=== PATIENT | female | born 1930 | race Caucasian/White ===

== ENCOUNTER 2016-11-01 23:10 | Observation (INO) | payer MEDICARE ==
--- NOTE | 2016-11-01 23:36 | ED ---
Syncope/Near Syncope - HPI Summary HPI Summary: 86 yo female with weakness since Thursday. She was seen at the clinic at [facility] and put on abx for a uti but continues to be weak. She describes wretching yesterday, denies headache, diarrhea, cp, sob , fever she does have mild left sided flank pain. she has fallen 3 times total since thursday. Tonight she attempted to get out of bed and fell back onto the bed and was not able to get up again. She denies any head injury with the falls and no pain anywhere other than the left flank - History Of Current Complaint Time Seen by Provider: 11/01/16 23:17 Hx Obtained From: Patient Onset/Duration: Sudden Onset, Gradual Onset Timing: Intermittent Episode Lasting Context: Witnessed Activity At Onset: Other Associated Head Trauma: No Aggravating Factor(s): Nothing Alleviating Factor(s): Nothing Associated Signs And Symptoms: Negative - Allergies/Home Medications Allergies/Adverse Reactions: Allergies Allergy/AdvReac Type Severity Reaction Status Date / Time Levofloxacin [From Levaquin] Allergy Unknown Unknown Verified 08/17/15 13:05 Reaction Details Nitrofurantoin Allergy Unknown Unknown Verified 08/17/15 13:05 [From Macrodantin] Reaction Details PMH/Surg Hx/FS Hx/Imm Hx Endocrine/Hematology History: Reports: Hx Anticoagulant Therapy - Afib, Autoimmune Disease Denies: Hx Diabetes, Hx Thyroid Disease Cardiovascular History: Reports: Hx Auto Implanted Cardiovert Defib, Hx Hypertension - ON MEDS, Hx Pacemaker/ICD, Hx Syncope, Hx Valvular Heart Disease - TRICUSPID INSUFFIENCY Denies: Hx Congestive Heart Failure Comment Only: Other Cardiovascular Problems/Disorders - PACEMAKER/AFIB Respiratory History: Reports: Hx Pulmonary Edema - PULMONARY HTN Denies: Hx Chronic Obstructive Pulmonary Disease (COPD), Other Respiratory Problems/Disorders GI History: Reports: Hx Obstructive Bowel - small bowel obstruction Denies: Other GI Disorders History: Reports: Hx Kidney Infection Denies: Hx Renal Disease, Other Problems/Disorders Musculoskeletal History: Reports: Hx Arthritis - rheumatoid arthritis, Hx Rheumatoid Arthritis Denies: Hx Osteoporosis Sensory History: Reports: Hx Cataracts - 2010, WOJCIECH REMOVED, Hx Contacts or Glasses, Hx Vision Problem, Hx Hearing Problem, Other Sensory Impairments - right eye lid droop-unrelated to TIA Denies: Hx Hearing Aid Opthamlomology History: Reports: Hx Cataracts - 2009, WOJCIECH REMOVED, Hx Contacts or Glasses, Hx Vision Problem, Other Sensory Impairments - right eye lid droop- unrelated to TIA Neurological History: Reports: Hx Transient Ischemic Attacks (TIA) - TIA 5 years ago Denies: Hx Dementia, Hx Seizures, Other Neuro Impairments/Disorders Psychiatric History: Reports: Hx Anxiety, Hx Depression Denies: Hx Substance Abuse - Cancer History Cancer Type, Location and Year: breast cancer Hx Chemotherapy: No Hx Radiation Therapy: No - Surgical History Surgery Procedure, Year, and Place: hysterectomy 2003, [facility], knee surg 1950d. wojciech cataracts, 2008. appendectomy. pacemaker 2010. LEFT BREAST LUNPECTOMY, [facility] [place]09/07/14 Hx Anesthesia Reactions: No - Immunization History Date of Tetanus Vaccine: Unk Date of Influenza Vaccine: 08/02 Infectious Disease History: Denies: Hx Hepatitis, History Other Infectious Disease - Family History Known Family History: Positive: Other Family History: Positive family hx of breast CA. - Social History Alcohol Use: Occasionally Substance Use Type: Reports: None Smoking Status (MU): Never Smoked Tobacco Have You Smoked in the Last Year: No Review of Systems Constitutional: Negative Negative: Chills, Fatigue, Skin Diaphoresis Eyes: Negative Negative: Blurred Vision, Diplopia, Drainage ENT: Negative Negative: Epistaxis, Dental Pain, Sore Throat Cardiovascular: Negative Respiratory: Negative Gastrointestinal: Other - wretching Genitourinary: Negative Musculoskeletal: Negative Skin: Negative Neurological: Negative Psychological: Normal All Other Systems Reviewed And Are Negative: Yes Physical Exam Triage Information Reviewed: Yes Vital Signs Reviewed: Yes Appearance: Positive: Well-Appearing Skin: Positive: Warm Head/Face: Positive: Normal Head/Face Inspection Eyes: Positive: Normal, EOMI, RETA ENT: Positive: Normal ENT inspection, Hearing grossly normal. Negative: Pharynx normal Dental: Negative: Percussion Tenderness @, Gross Decay/Caries @, Dental Fracture @ Neck: Positive: Supple, Nontender, No Lymphadenopathy Respiratory/Lung Sounds: Positive: Clear to Auscultation, Breath Sounds Present. Negative: Decreased Breath Sounds, Rales, Rhonchi Cardiovascular: Positive: Normal Abdomen Description: Positive: CVA Tenderness (L). Negative: Nontender, No Organomegaly, Soft, Bruit, CVA Tenderness (R), Distended, Guarding, Hernia @, Hepatomegaly Bowel Sounds: Positive: Present Musculoskeletal: Positive: Normal, Strength/ROM Intact, Limited @ Neurological: Positive: Normal, Sensory/Motor Intact, Alert, Oriented to Person Place, Time, CN Intact II-III Psychiatric: Positive: Normal AVPU Assessment: Alert - Deborah Coma Scale Best Eye Response: 4 - Spontaneous Best Motor Response: 6 - Obeys Commands Best Verbal Response: 4 - Confused Diagnostics - Laboratory Result Diagrams: 11/02/16 00:20 11/02/16 00:20 Lab Statement: Any lab studies that have been ordered have been reviewed, and results considered in the medical decision making process. - Radiology No standard instances Xray Interpretation: No Acute Changes Radiology Interpretation Completed By: ED Physician - CT No standard instances CT Interpretation: No Acute Changes - no urinary tract calculi or urinary tract inflammatory changes - EKG No standard instances Cardiac Rate: NL EKG Rhythm: Sinus Rhythm ST Segment: Normal Ectopy: None - atrial paced done at 0016 Course/Dx Course Of Treatment: 86 yo female unable to ambulate at home after increased weakness since thursday she has mild left flank pain with neg labs and CT. Pt to be admitted by Dr. Gomez - Diagnoses Provider Diagnoses: Weakness Discharge - Discharge Plan Condition: Stable Disposition: ADMITTED TO [facility]
[2016-11-02 00:32] LABS: Hematocrit 39 % (35-47); Hemoglobin 12.5 g/dl (12.0-16.0); Mean Corpuscular HGB Conc 32 g/dl (31-36); Mean Corpuscular Hemoglobin 28 pg (27-31); Mean Corpuscular Volume 87 fL (80-97); Mean Platelet Volume 8 um3 (7.4-10.4); Red Blood Count 4.49 10^6/ul (4.0-5.4); Red Cell Distribution Width 15 % (10.5-15); White Blood Count 8.7 10^3/ul (3.5-10.8)
[2016-11-02 00:45] LABS: Albumin 3.7 g/dL (3.2-5.2); Calcium 9.1 mg/dL (8.6-10.3); EGFR African American 67.3 (>60); EGFR Non-African American 52.3 (>60); Globulin 3.6 g/dL (2-4); Potassium 4.1 mmol/L (3.5-5.0); Total Bilirubin 0.4 mg/dL (0.2-1.0); Total Protein 7.3 g/dL (6.4-8.9)
[2016-11-02 00:46] LABS: Troponin I 0.02 ng/mL (<0.04)
[2016-11-02 01:15] LABS: TSH (Thyroid Stimulating Horm) 6.97 mcIU/mL (0.34-5.60)
[2016-11-02 02:27] LABS: Urine Bacteria Absent (Absent); Urine Bilirubin Negative (Negative); Urine Glucose Negative (Negative); Urine Nitrite Negative (Negative)
[2016-11-02] MEDS ORDERED: HYDROcodone/ACETAMIN 5-325 MG* 1 TAB PO ONE (03:14)
[2016-11-02] MEDS ORDERED: Acetaminophen TAB* 325 MG PO PRN ×2 (05:09→05:11)
[2016-11-02] MEDS ORDERED: traMADol TAB* 50 MG PO PRN (05:09)
[2016-11-02] MEDS ORDERED: Diazepam TAB(*) 5 MG PO PRN (05:09)
[2016-11-02] MEDS ORDERED: Heparin VIAL(*) 5000 UNITS/ML VIAL (FIVE THOUSAND) SUBCUT SCH (06:00)
[2016-11-02] MEDS: amLODIPine TAB* 5 MG PO SCH (06:22)
--- NOTE | 2016-11-02 07:17 | RAD ---
INDICATION: 83-year-old with urinary tract infection. Evaluate for renal stone left flank pain. COMPARISON: PET scan September 19, 2014 TECHNIQUE: Noncontrast axial source images were acquired from the level hemidiaphragms to the symphysis pubis as part of CT imaging for renal stone. Lung bases: There are emphysematous changes in the lung bases. There is cardiac pacemaker artifact. Liver: The liver is normal in size. Noncontrast imaging shows no evidence of a hepatic mass or ductal dilatation. Gallbladder: There are no calcified gallstones. There is no evidence of wall thickening or pericholecystic fluid.. Spleen: The spleen is normal in size. The noncontrast CT appearance is normal. Pancreas: Noncontrast imaging shows no pancreatic mass or ductal dilitation. Adrenal glands: No masses are identified. Suspect mild left adrenal hyperplasia Kidneys/Bladder: There is no evidence of nephrolithiasis or CT evidence of hydronephrosis. Noncontrast imaging shows no evidence of a renal mass. 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 Adenopathy: There is no evidence of intraperitoneal or retroperitoneal adenopathy. Evaluation is limited without oral contrast. Fluid collections: There are no free or localized fluid collections. Vessels: There are atherosclerotic changes of the aorta and iliac vessels. There is no focal aneurysm. The IVC appears normal Pelvic organs: There is hysterectomy. There is no adnexal mass GI tract: Evaluation of the bowel is limited without oral contrast. The stomach, small bowel, and lower GI tract appear grossly normal. There are no obstructive findings. The appendix is visualized and appears normal. Soft tissues: No soft tissue abnormalities of the extraperitoneal abdomen or pelvis are identified. Osseous structures: There are no acute osseous findings. IMPRESSION: NO CT EVIDENCE OF UROLITHIASIS. NO ACUTE CT FINDINGS ON NONCONTRAST IMAGING
--- NOTE | 2016-11-02 07:21 | RAD ---
INDICATION: Weakness COMPARISON: Chest x-ray May 13, 2016 TECHNIQUE: An AP portable view obtained at 0010 hours is submitted. FINDINGS: Bones/Soft Tissues: There are no acute bony findings. There is left-sided cardiac pacemaker Cardiomediastinal: The cardiac silhouette is enlarged, unchanged. Lungs: There are no infiltrates. Pleura: There are no pleural effusions. Other: None IMPRESSION: NO ACTIVE DISEASE.
[2016-11-02] MEDS ORDERED: Anastrozole (NF) 1 MG TAB PO SCH (09:00)
[2016-11-02] MEDS ORDERED: Cephalexin CAP* 250 MG PO SCH (09:00)
[2016-11-02] MEDS ORDERED: Sulfamethox/Trimethoprim DS 800/160* TAB PO SCH (09:00)
[2016-11-02] MEDS: Hydroxychloroquine TAB* 200 MG PO SCH ×2 (09:08→20:14)
[2016-11-02] MEDS: FLUoxetine CAP* 20 MG PO SCH ×2 (09:08→20:14)
[2016-11-02] MEDS: Metoprolol Succinate XL TAB* 25 MG PO SCH (09:09)
[2016-11-02] MEDS: Hydrochlorothiazide TAB* 25 MG PO SCH (09:10)
[2016-11-02] MEDS: Diltiazem CD CAP* 240 MG PO SCH (09:10)
--- NOTE | 2016-11-02 12:59 | HP ---
HISTORY AND PHYSICAL: DATE OF ADMISSION: 11/02/16 CHIEF COMPLAINT: Weakness. HISTORY OF PRESENT ILLNESS: The patient is an 86-year-old woman who presents to [facility] from [facility] where she is complaining of being too weak. She states it is going on for over a week. Initially, she has told, she had urinary tract infection, was placed on antibiotics for same. However, she did not feel any better. She cannot specify any complaints such as pain anywhere or weakness on one side versus the other. She just states she has difficulty getting up and moving around. In the ED, the patient was worked up and no specific findings were noted. She had an NIH Stroke scale of 0. She denied any chest pain, shortness of breath, palpitations, nausea, vomiting, diarrhea, abdominal pain, increased frequency, urination, pain on urination, fevers, chills, weight loss or weight gain. PAST MEDICAL HISTORY: Significant for: 1. Rheumatoid arthritis. 2. Osteoarthritis. 3. Breast cancer. 4. Atrial fibrillation with pacemaker placement. 5. Recent UTI. 6. Depression. 7. Hypertension. ALLERGIES: She has allergies/adverse reaction to LEVAQUIN, NITROFURANTOIN. CURRENT MEDICATIONS: Are as follows: 1. Senna 8.6 mg every evening. 2. Metoprolol succinate 25 mg daily. 3. Hydroxychloroquine 200 mg twice daily. 4. Hydrochlorothiazide 25 mg daily. 5. Fluoxetine 40 mg twice daily. 6. Diltiazem CD 240 mg daily. 7. Cephalexin 250 mg 4 times a day. 8. Atorvastatin 20 mg daily. 9. Arimidex 1 mg daily. 10. Acetaminophen 325 mg every 4 hours as needed. 11. Bactrim double strength one tab twice daily. 12. Tramadol 50 mg every 6 hours as needed. FAMILY HISTORY: Reviewed and noncontributory. SOCIAL HISTORY: Resident of [place]. Healthcare proxy is her daughter, Laurel Fonseca. No tobacco, alcohol or recreational drug use, ambulates with a walker. She is DNR/DNI. REVIEW OF SYSTEMS: A 14-point review of systems was completed with the patient. All pertinent positives and negatives are in the history of present illness; otherwise, it is negative. PHYSICAL EXAMINATION GENERAL: Pleasant woman lying in bed, in no acute distress. VITAL SIGNS: Blood pressure 172/86, pulse ox 94%, respiratory rate is 18 breaths per minute, heart rate is 63 beats per minute, temperature 96.8 degrees. HEENT: Normocephalic and atraumatic. Pupils equal, round and reactive to light. Moist mucous membranes. NECK: Supple with no JVD, bruits, palpable thyroid or lymphadenopathy. CHEST: Clear to auscultation and percussion bilaterally. CARDIOVASCULAR: S1, S2 appreciated. ABDOMEN: Positive bowel sounds in all 4 quadrants. Soft, nontender, nondistended. No hepatosplenomegaly. EXTREMITIES: No cyanosis or clubbing. +2 peripheral pulses bilaterally. NEUROLOGICAL: Alert and oriented x3. She moves all extremities. SKIN: No rashes or abnormalities. DIAGNOSTIC STUDIES/LAB DATA: White count is 8.7, hemoglobin 12.5, hematocrit 35, platelets 279. Sodium is 129, potassium 4.1, chloride 99, CO2 of 23, BUN is 25, creatinine 1, glucose is 136. TSH is 6.97. INR is 2.86. Urinalysis is unremarkable. Chest x-ray shows acute pulmonary findings, there is no acute infiltrates. CAT scan of abdomen and pelvis shows no urinary tract calculi or evidence of urinary tract obstruction seen, no urinary tract inflammatory change identified , no other inflammatory process identified in the abdomen or pelvis. No abdominal mass, adenopathy or collection seen. EKG shows atrial paced rhythm at rate of 60 beats per minute, left axis deviation, left anterior hemiblock. ASSESSMENT AND PLAN: 1. Weakness. At this point, it is very difficult to discern exactly what is going with this patient. Does not see any evidence of urinary tract infection. Her blood pressures have been a quite high, I have added amlodipine, perhaps this has some effect on her. It could be anything from depression to hypothyroidism at this point. I highly doubt it is hypothyroidism, although her TSH is high, it is not that high. I would monitor overnight, get her blood pressure down and possibly get Physical Therapy consult to see how she does. 2. Hypertension. As noted earlier, I have added amlodipine. We will see if blood pressure comes down. Adjust medications accordingly. 3. Rheumatoid arthritis. Continue Plaquenil. 4. Deep venous thrombosis prophylaxis: She currently has an INR of 2.86, but I do not see warfarin on her list, this needs to be updated. 5. Fluids, electrolytes, and nutrition. Regular diet 6. The patient is a do not resuscitate. TIME SPENT: Over 75 minutes were spent on this H and P, and more than 40 minutes of which was spent in direct [id number] contact with the patient in evaluation, physical exam, and counseling, and coordination of care. CC: Dr. Ervin Kamara.* [id number]/CPS #: [id number] MTDD
[2016-11-02] MEDS: CMC: Anastrozole (NF) 1 MG TAB PO SCH (13:29)
[2016-11-02] MEDS ORDERED: Atorvastatin* 20 MG TAB PO SCH (17:00)
[2016-11-02] MEDS ORDERED: Senna TAB PO SCH (18:00)
[2016-11-03] MEDS ORDERED: Ondansetron INJ* 2 MG/ML VIAL IV PRN (04:06)
[2016-11-03] MEDS ORDERED: Metoprolol Succinate XL TAB* 25 MG PO ONE (04:07)
[2016-11-03] MEDS: Metoprolol Succinate XL TAB* 25 MG PO SCH (08:52)
[2016-11-03] MEDS: FLUoxetine CAP* 20 MG PO SCH (08:53)
[2016-11-03] MEDS: CMC: Anastrozole (NF) 1 MG TAB PO SCH (08:53)
[2016-11-03] MEDS: Hydroxychloroquine TAB* 200 MG PO SCH (08:53)
[2016-11-03] MEDS: Hydrochlorothiazide TAB* 25 MG PO SCH (08:53)
[2016-11-03] MEDS: Diltiazem CD CAP* 240 MG PO SCH (08:53)
[2016-11-03] MEDS: amLODIPine TAB* 5 MG PO SCH (08:53)
[2016-11-03] MEDS ORDERED: amLODIPine TAB* 5 MG PO ONE (10:00)
[2016-11-03 11:09] LABS: Hematocrit 41 % (35-47); Hemoglobin 13.3 g/dl (12.0-16.0); Mean Corpuscular HGB Conc 32 g/dl (31-36); Mean Corpuscular Hemoglobin 28 pg (27-31); Mean Corpuscular Volume 87 fL (80-97); Mean Platelet Volume 8 um3 (7.4-10.4); Red Blood Count 4.72 10^6/ul (4.0-5.4); Red Cell Distribution Width 15 % (10.5-15); White Blood Count 8.3 10^3/ul (3.5-10.8)
[2016-11-03 11:23] LABS: BUN/Creatinine Ratio 20.4 (8-20); Calcium 9.3 mg/dL (8.6-10.3); EGFR African American 61.6 (>60); EGFR Non-African American 47.9 (>60)
[2016-11-03 11:49] LABS: Free T4 1.09 ng/dL (0.61-1.12)
[2016-11-03 12:50] VITALS: BP 142/59
--- NOTE | 2016-11-04 00:52 | DS ---
DISCHARGE SUMMARY: DATE OF ADMISSION: 11/02/16 DATE OF DISCHARGE: 11/03/16 PRIMARY CARE PROVIDER: Ervin Kamara MD DISCHARGE DIAGNOSES: 1. General weakness most likely due to deconditioning. 2. Elevated TSH mildly with normal free T4 and free T3. SECONDARY DIAGNOSES: 1. History of rheumatoid arthritis. 2. Osteoarthritis. 3. History of breast cancer. 4. History of status post atrial fibrillation, currently pacer dependent. 5. History of recent urinary tract infection, treated with Bactrim. 6. Depression. 7. Hypertension. MEDICATIONS AT DISCHARGE: Include: 1. Acetaminophen on a p.r.n. basis. 2. Arimidex 1 mg daily. 3. Valium 5 mg daily p.r.n. 4. Cardizem CD 240 mg daily. 5. Fluoxetine 40 mg daily. 6. Metoprolol succinate 25 mg daily. 7. Senna 8.6 mg q.p.m. p.r.n. 8. Tramadol 50 mg every 6 hours p.r.n. 9. Coumadin 1 mg tablet a tablet on and Coumadin 2.5 mg on all the remaining days of the week. 10. Amlodipine 5 mg daily. Due to mild hyponatremia, the patient's hydrochlorothiazide was discontinued and replaced with Norvasc 5 mg daily. LABORATORY DATA: Studies performed during the hospital stay included on , white blood cell count of 8.3, hemoglobin 13.3, hematocrit of 41. INR on 11/02/16 was 2.86. Sodium on 11/03/16 was 127, potassium 4.0, chloride 93, carbon dioxide 29, BUN 22, creatinine 1.08. The patient's TSH was noted to be 6.97, free T4 1.09, free T3 3. Urinalysis was positive for trace ketones, +2 rbc's, no bacteria, no nitrates, and no esterase. Abdomen and pelvis CT obtained on 11/02/16, impression: "No CT evidence of urolithiasis. No acute CT findings on noncontrast imaging." The patient is recommended to continue on low sodium diet. The patient underwent Physical Therapy and Occupational Therapy evaluation and was discharged to a high level facility at [facility]. She previously was independent living at [facility]. Currently, she is going to be discharged to assisted living facility. At discharge, the patient was recommended to have INR and basic metabolic panel checked within the next week. She is recommended to follow up with Dr. Kamara within the next week. HOSPITALIZATION COURSE: Janet Law is an 86-year-old female who has several falls at home and complained of generalized weakness. She was seen by Dr. Kamara as outpatient and prescribed Bactrim a few days prior to her presentation to the emergency department for evaluation. At our hospital apart from mild hyponatremia, the patient's workup was basically benign. She did have a Physical Therapy and Occupational Therapy evaluation and deemed to be a good candidate for assisted living facility. The hyponatremia is most likely related to hydrochlorothiazide, that was discontinued. The patient was placed on Norvasc instead. Please also note the patient's blood pressures have been fluctuating throughout her hospital stay. She came in with blood pressure of 141 systolically, but throughout her hospital stay especially during nighttime systolic pressures would be in the 200s range. On the day of discharge in the morning at 7 a.m., her pressures were 188 but after her medications that she took at 9 a.m., at 10 a.m. her systolic pressure was 108 and throughout the day remained in the 140 systolically prior to discharge. PHYSICAL EXAMINATION AT THE TIME OF DISCHARGE: Vital Signs: Blood pressure of 142/59, heart rate of 60 and regular. Please note that the patient has a paced rhythm on monitor. Respiratory rate 20, oxygen saturation 99% on room air, temperature 97.6. General: The patient is a very pleasant 86-year-old female who is in no acute distress. The patient is alert, awake, and oriented x3. HEENT: Head atraumatic, normocephalic. Eyes: Pupils equal, round, and reactive to light and accommodation. Oropharynx clear. Mucosa moist. Neck: Supple. No JVD. No bruits bilaterally. Cardiovascular: Regular rate and rhythm. No murmurs. Respiratory: Clear to auscultation bilaterally. Abdomen: Soft, nontender. Bowel sounds are present in all 4 quadrants. Extremities: There is no edema. Pulses +2 bilaterally. No clubbing or cyanosis. Neuro Evaluation: Speech clear. Cranial nerves II through XII are grossly intact. Motor strength is 5/5 bilaterally. Please note this is a short summary of the patient's hospital stay. Please refer to further medical records for details. CC: Dr. Kamara* [id number]/CPS #: [id number] [facility]
[2016-11-04] MEDS ORDERED: amLODIPine TAB* 5 MG PO SCH (09:00)
== END 2016-11-03 16:00 ==
LOC: ED 23:10 → MEDTELE 11-02 06:08
PROVIDERS: ADMIT Internal Medicine; ATTEND Internal Medicine
DX: R53.1 Weakness (principal); I10 Essential (primary) hypertension; R94.6 Abnormal results of thyroid function studies; M06.9 Rheumatoid arthritis, unspecified; Z85.3 Personal history of malignant neoplasm of breast; I48.91 Unspecified atrial fibrillation; Z79.01 Long term (current) use of anticoagulants; Z95.0 Presence of cardiac pacemaker; F32.9 Major depressive disorder, single episode, unspecified; Z79.899 Other long term (current) drug therapy; Z88.8 Allergy status to other drugs, medicaments and biological substances
CPT/HCPCS: 36415; 71010; 74176; 80048; 80053; 81003; 81015; 83605; 83735; 84439; 84443; 84481; 84484; 85025; 85610; 93005; 96372; 96374; 99284; A9270-GY; G0378; G8978-GP-CL; G8979-GP-CI; G8979-GP-CJ; G8980-GP-CL; G8987-GO-CJ; G8988-GO-CI; J1644; J2405

== ENCOUNTER 2016-11-04 10:34 | Inpatient (IN) | payer MEDICARE ==
[2016-11-04 12:32] LABS: Hematocrit 44 % (35-47); Hemoglobin 14.2 g/dl (12.0-16.0); Mean Corpuscular HGB Conc 32 g/dl (31-36); Mean Corpuscular Hemoglobin 28 pg (27-31); Mean Corpuscular Volume 87 fL (80-97); Mean Platelet Volume 9 um3 (7.4-10.4); Red Blood Count 5.04 10^6/ul (4.0-5.4); Red Cell Distribution Width 15 % (10.5-15)
[2016-11-04 12:44] LABS: Albumin 4.2 g/dL (3.2-5.2); Calcium 10.1 mg/dL (8.6-10.3); EGFR Non-African American 40.4 (>60); Globulin 4.2 g/dL (2-4); Potassium 3.9 mmol/L (3.5-5.0); Total Bilirubin 0.4 mg/dL (0.2-1.0); Total Protein 8.4 g/dL (6.4-8.9)
[2016-11-04 13:07] LABS: Troponin I 0.07 ng/mL (<0.04)
--- NOTE | 2016-11-04 13:18 | RAD ---
INDICATION: Slurred speech, syncope. COMPARISON: Comparison is made with a prior CT of the brain from June 26, 2016. TECHNIQUE: Contiguous axial sections of the brain were obtained from the skull base to the vertex without contrast. FINDINGS: The ventricles, cisterns and sulci are enlarged consistent with diffuse atrophy. There are multiple confluent focal areas of decreased density in the subcortical and periventricular white matter suggestive of moderate to severe chronic small vessel ischemic changes. There a couple small more well-defined areas of decreased density in the periventricular white matter most consistent with old lacunar infarcts. There is no evidence for hemorrhage. No significant focal osseous abnormality is seen. The visualized portion of the paranasal sinuses and mastoid air cells appear clear. IMPRESSION: 1. NO EVIDENCE FOR GROSS ACUTE INFARCT, MASS EFFECT OR HEMORRHAGE. 2. OLD LACUNAR INFARCTS. 3. MODERATE TO SEVERE CHRONIC SMALL VESSEL ISCHEMIC CHANGES.
--- NOTE | 2016-11-04 13:23 | RAD ---
INDICATION: Syncope. COMPARISON: Comparison is made with a prior suture x-ray study from November 02, 2016. TECHNIQUE: A portable view of the chest was obtained. FINDINGS: The heart is within normal limits in size. There is a dual-chamber cardiac pacemaker present. The lungs are clear. No pleural effusion is seen. IMPRESSION: PACEMAKER IN PLACE, NO EVIDENCE FOR ACUTE FINDING.
--- NOTE | 2016-11-04 15:07 | ED ---
Osvaldo Negron Billy, scribed for Raul Veloz MD on 11/04/16 at 1304 . Syncope/Near Syncope - HPI Summary HPI Summary: Patient is an 86 year-old female BIBA to [facility] presenting with a syncopal episode this morning and last night, both of which occurred while she was on the toilet. She reports positive LOC for a "short" duration, but she is unable to provide any more specific information regarding the duration. She denies any FUENTES, blurred, vision, CP, or SOB at any point during her episodes. She states she has not had any syncopal episodes since her pacemaker was installed 2 years ago. Her only complaint at this time is left-sided ribcage pain which she states is muscular and chronic in nature. She was recently discharged from [facility] yesterday for general weakness and elevated TSH. She states she did not sleep well last night. - History Of Current Complaint Chief Complaint: EDSyncope Time Seen by Provider: 11/04/16 12:24 Hx Obtained From: Patient Onset/Duration: Sudden Onset Context: Unwitnessed Activity At Onset: At Rest Associated Head Trauma: No Aggravating Factor(s): Nothing Alleviating Factor(s): Spontaneous Resolution - Allergies/Home Medications Allergies/Adverse Reactions: Allergies Allergy/AdvReac Type Severity Reaction Status Date / Time Levofloxacin [From Levaquin] Allergy Unknown Unknown Verified 08/17/15 13:05 Reaction Details Nitrofurantoin Allergy Unknown Unknown Verified 08/17/15 13:05 [From Macrodantin] Reaction Details Home Medications: Home Medications Acetaminophen SUPP* [Tylenol Supp*] 650 mg WI Q6H PRN 11/04/16 [History Confirmed 11/04/16] Acetaminophen TAB* [Tylenol TAB*] 650 mg PO Q4HR PRN 11/04/16 [History Confirmed 11/04/16] Alum & Mag Hydrox-Simethicone [Mylanta 200-200-20 mg/5Ml] 15 ml PO Q4HR PRN [History Confirmed 11/04/16] Bisacodyl SUPP* [Dulcolax Supp*] 10 mg PO QPM PRN 11/04/16 [History Confirmed ] Conjugated Estrogens VAG CM* [Premarin VAG CREAM*] 1 applic VAGINAL TUTH [History Confirmed 11/04/16] Cranberry (Vaccinium Macrocarp [Cranberry] 450 mg PO DAILY 11/04/16 [History Confirmed 11/04/16] Magnesium Hydroxide LIQ* [Milk of Magnesia LIQ*] 30 ml PO DAILY PRN 11/04/16 [ History Confirmed 11/04/16] Magnesium Hydroxide LIQ* [Milk of Magnesia LIQ*] 30 ml PO QAM PRN 11/04/16 [ History Confirmed 11/04/16] Nutritional Supplements [Ensure] 1 can PO DAILY 11/04/16 [History Confirmed ] Probiotic Product [Align] 4 mg PO QPM 11/04/16 [History Confirmed 11/04/16] Senna TAB* [Senokot TAB*] 1 tab PO BEDTIME 11/04/16 [History Confirmed 11/04/16] Sodium Phosphate ADULT ENEMA* [Fleet Enema*] 1 enema WI QAM PRN 11/04/16 [ History Confirmed 11/04/16] Warfarin TAB(*) [Coumadin TAB(*)] 1.25 mg PO TH 11/04/16 [History Confirmed ] Warfarin TAB(*) [Coumadin TAB(*)] 2.5 mg PO SUMOTUWEFRSA 11/04/16 [History Confirmed 11/04/16] PMH/Surg Hx/FS Hx/Imm Hx Endocrine/Hematology History: Reports: Hx Anticoagulant Therapy - Afib Denies: Hx Diabetes, Hx Thyroid Disease Cardiovascular History: Reports: Hx Auto Implanted Cardiovert Defib, Hx Hypertension, Hx Pacemaker/ICD, Hx Syncope, Hx Valvular Heart Disease - TRICUSPID INSUFFIENCY Denies: Hx Congestive Heart Failure Comment Only: Other Cardiovascular Problems/Disorders - PACEMAKER/AFIB Respiratory History: Reports: Hx Pulmonary Edema - PULMONARY HTN Denies: Hx Chronic Obstructive Pulmonary Disease (COPD), Other Respiratory Problems/Disorders GI History: Reports: Hx Obstructive Bowel - small bowel obstruction Denies: Other GI Disorders History: Reports: Hx Kidney Infection Denies: Hx Renal Disease, Other Problems/Disorders Musculoskeletal History: Reports: Hx Arthritis - rheumatoid arthritis, Hx Rheumatoid Arthritis Denies: Hx Osteoporosis Sensory History: Reports: Hx Cataracts - 2010, WOJCIECH REMOVED, Hx Contacts or Glasses, Hx Vision Problem, Hx Hearing Problem - pt has hearing aids that are ready to be picked up for use., Other Sensory Impairments - right eye lid droop- unrelated to TIA Denies: Hx Hearing Aid Opthamlomology History: Reports: Hx Cataracts - 2010, WOJCIECH REMOVED, Hx Contacts or Glasses, Hx Vision Problem, Other Sensory Impairments - right eye lid droop- unrelated to TIA Neurological History: Reports: 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 wojciech cataracts, 2008. appendectomy. pacemaker 2010. LEFT BREAST LUNPECTOMY, [facility] Hx Anesthesia Reactions: No - Immunization History Date of Tetanus Vaccine: Unk Date of Influenza Vaccine: 08/02 Infectious Disease History: No Infectious Disease History: Denies: Hx Hepatitis, History Other Infectious Disease, Traveled Outside the [place] in Last 30 Days - Family History Known Family History: Positive: Other Family History: Positive family hx of breast CA. - Social History Alcohol Use: Rare Substance Use Type: Reports: None Smoking Status (MU): Never Smoked Tobacco Have You Smoked in the Last Year: No Review of Systems Negative: Blurred Vision Negative: Chest Pain Negative: Shortness Of Breath Positive: Syncope. Negative: Headache All Other Systems Reviewed And Are Negative: Yes Physical Exam - Summary Physical Exam Summary: VITAL SIGNS: Reviewed. GENERAL: Patient is a well developed and nourished female who is lying comfortable in the stretcher. Patient is not in any acute respiratory distress. HEAD AND FACE: No signs of trauma. No ecchymosis, hematomas or skull depressions. No sinus tenderness. EYES: PERRLA, EOMI x 2, No injected conjunctiva, no nystagmus. No photophobia. EARS: Hearing grossly intact. Ear canals and tympanic membranes are within normal limits. MOUTH: Oropharynx within normal limits. NECK: Supple, trachea is midline, no adenopathy, no JVD, no carotid bruit, no c- spine tenderness, neck with full ROM. No meningeal signs, no Kernig's or brudzinskis signs. CHEST: Symmetric, no tenderness at palpation LUNGS: Clear to auscultation bilaterally. No wheezing or crackles. CVS: Regular rate and rhythm, S1 and S2 present, no murmurs or gallops appreciated. ABDOMEN: Soft, non-tender. No signs of distention. No rebound no guarding, and no masses palpated. Bowel sounds are normal. EXTREMITIES: FROM in all major joints, no edema, no cyanosis or clubbing. NEURO: Alert and oriented x 3. No acute neurological deficits. Speech is normal and follows commands. SKIN: Dry and warm Triage Information Reviewed: Yes Vital Signs On Initial Exam: Initial Vitals Temp Pulse Resp BP Pulse Ox 96.8 F 61 13 155/88 100 11/04/16 10:40 11/04/16 10:40 11/04/16 10:40 11/04/16 10:40 11/04/16 10:40 Vital Signs Reviewed: Yes Diagnostics - Vital Signs Vital Signs Temp Pulse Resp BP Pulse Ox 11/04/16 10:40 96.8 F 61 13 155/88 100 - Laboratory Lab Results: Lab Results 11/04/16 Range/Units 10:58 WBC 9.0 (3.5-10.8) 10^3/ul RBC 5.04 (4.0-5.4) 10^6/ul Hgb 14.2 (12.0-16.0) g/dl Hct 44 (35-47) % MCV 87 (80-97) fL MCH 28 (27-31) pg MCHC 32 (31-36) g/dl RDW 15 (10.5-15) % Plt Count 451 H (150-450) 10^3/ul MPV 9 (7.4-10.4) um3 Neut % (Auto) 76.2 (38-83) % Lymph % (Auto) 15.7 L (25-47) % Alger % (Auto) 5.5 (1-9) % Eos % (Auto) 2.0 (0-6) % Baso % (Auto) 0.6 (0-2) % Absolute Neuts (auto) 6.9 (1.5-7.7) 10^3/ul Absolute Lymphs (auto) 1.4 (1.0-4.8) 10^3/ul Absolute Monos (auto) 0.5 (0-0.8) 10^3/ul Absolute Eos (auto) 0.2 (0-0.6) 10^3/ul Absolute Basos (auto) 0.1 (0-0.2) 10^3/ul Absolute Nucleated RBC 0 10^3/ul Nucleated RBC % 0 Result Diagrams: 11/04/16 10:58 11/04/16 10:58 Lab Statement: Any lab studies that have been ordered have been reviewed, and results considered in the medical decision making process. - Radiology CXR Xray Interpretation: No Acute Changes Radiology Interpretation Completed By: Radiologist - CT Brain CT Interpretation: No Acute Changes CT Interpretation Completed By: Radiologist - EKG 1016 EKG Interpretation: sinus rhythm 64 bpm w/ atrial pace complexes; ST depre in I , II, aVL, V4-V6 Course/Dx Assessment/Plan: Patient is an 86 year-old female BIBA to [facility] presenting with a syncopal episode this morning and last night, both of which occurred while she was on the toilet. She reports positive LOC for a "short" duration, but she is unable to provide any more specific information regarding the duration. She denies any FUENTES, blurred, vision, CP, or SOB at any point during her episodes. She states she has not had any syncopal episodes since her pacemaker was installed 2 years ago. Her only complaint at this time is left-sided ribcage pain which she states is muscular and chronic in nature. She was recently discharged from [facility] yesterday for general weakness and elevated TSH. She states she did not sleep well last night. Bloodwork WNL except for hyponatremia 128 and increased BUN/creatinine of 25/1.25. Troponin is increased at 0.07. The troponin 2 days [address] was 0[address]01. [address] brain shows no acute intracranial pathology, old lacunar infarcts. CXR shows pacemaker in place without acute findings. In the ED course, she was given ASA and at this point, because of her symtoms, I discussed my physical exam findings with Dr. Stevens, the hospitalist consulting systems engineer, who will be accepting the patient to his services for further workup and management. At this point, he is hemodynamically stable, A&Ox3. - Diagnoses Differential Diagnosis/HQI/PQRI: Positive: Cerebral Vascular Accident, Dysrhythmia, Hypoglycemia, Metabolic Reaction, Seizure, Transient Ischemic Attack, Vasovagal Episode Provider Diagnoses: Syncope, Elevated troponin, Chronic hyponatremia, Chronic renal failure - Physician Notifications Discussed Care Of Patient With: Dr. Stevens (hospitalist) @ [id number]: accepts admission. Discharge - Discharge Plan Condition: Stable Disposition: ADMITTED TO [facility] documentation as recorded by the Osvaldo polo Billy accurately reflects the service I personally performed and the decisions made by me, Raul Veloz MD.
[2016-11-04] MEDS ORDERED: Magnesium Hydroxide LIQ* 30 ML UDC PO PRN ×2 (15:46→15:49)
[2016-11-04] MEDS ORDERED: Acetaminophen TAB* 325 MG PO PRN (15:46)
[2016-11-04] MEDS ORDERED: Sodium Phosphate ADULT ENEMA* 118 ml bottle PR PRN (15:49)
[2016-11-04] MEDS ORDERED: Al Hydrox/Mg Hydrox/Simet LIQ* 30 ML UDC PO PRN (15:49)
[2016-11-04] MEDS ORDERED: Bisacodyl SUPP* 10 MG SUPP PR PRN (15:49)
[2016-11-04] MEDS ORDERED: NS 0.9% 500 ML* 500 ML IV ONE (16:05)
[2016-11-04] MEDS: Warfarin TAB(*) 2.5 MG PO SCH (17:47)
[2016-11-04] MEDS ORDERED: Magnesium Hydroxide LIQ* 30 ML UDC PO ONE (18:09)
[2016-11-04] MEDS: Docusate CAP* 100 MG PO SCH (22:09)
[2016-11-04] MEDS: Senna TAB PO SCH (22:09)
--- NOTE | 2016-11-04 22:58 | HP ---
HISTORY AND PHYSICAL: DATE OF ADMISSION: 11/04/16 PRIMARY CARE PHYSICIAN: Mirta Wasserman NP CHIEF COMPLAINT: Syncope. HISTORY OF PRESENT ILLNESS: Janet Law is an 86-year-old female who was just admitted to our facility for generalized weakness with history of falls and discharged on 11/03/16 after she was noted to be markedly hypertensive. She was noted to have mild hyponatremia and due to that, her hydrochlorothiazide was stopped and replaced with amlodipine. The patient also was deemed not to be a good candidate any more to be independently living at [facility] as she was placed at the assisted living part of the facility. The patient stated that she did okay after her arrival back to [facility] yesterday , but today during her morning toilet with assistance, she was noted to be unresponsive and diaphoretic while sitting on the toilet. The patient stated that she just felt generalized weakness. She denied any chest pain or shortness of breath prior to the episode. She regained consciousness within seconds and was back to her baseline. When she came into the emergency room, her systolic pressures were in the lower one-teens. When she sat up, her systolic pressure went down from 117 to 93. When she stood up, her systolic pressure went down to 70 and she once again had near syncopal episode at that point in a somewhat controlled situation in the emergency department. At this point, the patient is going to be admitted due to syncope. It appears to be orthostatic syncope. The patient stated that due to her being transferred from one facility to the other yesterday, she had not been eating well or drinking well. Her troponin is slightly elevated at 0.07. The patient has a history of chronic elevation in the past. PAST MEDICAL HISTORY: 1. History of orthostatic hypotension in the past. 2. History of recent UTI, treated with Bactrim. 3. History of breast cancer. 4. History of mitral valve disorder. 5. History of dizziness in the past. 6. History of pacemaker for sinus node dysfunction. 7. History of depression. 8. History of paroxysmal atrial fibrillation, on Coumadin. 9. Hypertension. 10. Pulmonary hypertension. MEDICATIONS: At [facility] appeared to not include the Norvasc that the patient was discharged with yesterday and they are: 1. Zofran 4 mg 1 tablet b.i.d. p.r.n. 2. Mylanta on a p.r.n. basis. 3. Tylenol on a p.r.n. basis. 4. Coumadin, the patient takes 1 mg tablet on and 2.5 mg on the remaining days of the week on a daily basis. 5. Cardizem CD 240 mg daily. 6. Senna 8.6 mg daily. 7. Metoprolol succinate 25 mg daily. 8. Anastrozole 1 mg daily. 9. Fluoxetine 40 mg daily. 10. Cranberry 500 mg b.i.d. 11. Align probiotic 1 tablet daily. ALLERGIES: LEVAQUIN which at higher doses causes dizziness as well as NITROFURANTOIN and CIPROFLOXACIN. FAMILY HISTORY: Reviewed and noncontributory. SOCIAL HISTORY: The patient denies any tobacco, alcohol, or drug use. She lives at [facility]. Her healthcare proxy is her daughter , Karla Medina. REVIEW OF SYSTEMS: Please see the history of present illness. Positive for recent hospitalization after a fall. Positive for generalized weakness, chronic and progressive. Negative for chest pain or shortness of breath. Please note the patient was described by the [facility] staff as "unresponsive, diaphoretic, different sized pupils, drooling and slurring words, oriented to self and place only, but not aware of who she was. She was unresponsive for 3 minutes. After that, she recognized people present in the room and denied pain. " The patient also noted that she has not had a bowel movement for a couple of days. All the remaining 14 systems were reviewed with the patient and were otherwise negative. PHYSICAL EXAMINATION GENERAL: This is a very pleasant 86-year-old, who is in no acute distress. Alert, awake, and oriented x3. VITAL SIGNS: Blood pressure of 145/58, heart rate of 59 and regular, respiratory rate 16, oxygen saturation 100% on room air, temperature of 97.8. HEENT: Head atraumatic, normocephalic. Eyes: Pupils equal, reactive to light and accommodation. Oropharynx clear. Mucosa moist. NECK: Supple. No JVD. No bruits bilaterally. RESPIRATORY: Clear to auscultation bilaterally. CARDIOVASCULAR: Regular rate and rhythm. No murmur. ABDOMEN: Soft, nontender. Bowel sounds present in all 4 quadrants. EXTREMITIES: There is no edema. Pulses are +2 bilaterally. No clubbing or cyanosis. LABORATORY DATA AND STUDIES: Performed in the ED showed: Sodium of 128, potassium 3.9, chloride 91, carbon dioxide 29, BUN 25, creatinine 1.25, which is slight increase from the patient's baseline creatine of 1. Liver function tests were unremarkable with a troponin of 0.07. That is consistent with troponin in the past. Portable chest x-ray. Impression: "Pacemaker in place. No evidence for acute findings." Brain CT. Impression: "No evidence for gross acute infarct, mass effect, or hemorrhage. Old lacunar infarct. Moderate to severe chronic small vessel ischemic changes." The patient's EKG shows atrial paced complexes with one PVC, no ST changes. The pacemaker was interrogated when the patient was in the emergency room. It was noted that the patient had one episode of atrial fibrillation with heart rate in the 150s that lasted approximately 2 hours when the patient was asleep at 2 a.m. in the morning. That occurred last night. ASSESSMENT AND PLAN: An 86-year-old female with recent hospitalization after a fall who has a history of hypertension that is uncontrolled, now presents with orthostatic hypotension. Syncope due to orthostatic hypotension. The patient appears to be mildly dehydrated with hyponatremia as a result. We will place the patient on intravenous hydration. We will check orthostatics in the morning. I will also evaluate the patient with physical therapy and occupational therapy. She may be a good candidate for short-term rehabilitation at [facility] prior to going back to assisted living. We will also lower the patient's Cardizem dose from 240 to 180 mg daily. The risk of lowering the Cardizem is increasing the patient's frequency of atrial fibrillation for which she is going to be observed on telemetry monitored bed. In regards of the patient's hyponatremia, slightly better than before. Most likely with hydrochlorothiazide use up to yesterday as well as mild dehydration. We will place the patient on intravenous fluids as mentioned above and recheck in the morning. Mild elevation of troponin. No symptoms of chest pain or shortness of breath. The patient denies history of mildly elevated troponins in the past. Her EKG is unremarkable. Nevertheless, we will follow up with troponins today. In regards to the patient's history of paroxysmal atrial fibrillation: As mentioned above, the patient is going to be continued on her Cardizem CD at a lower dose. She is currently fully anticoagulated with an INR of 2.6 today. For DVT prophylaxis, the patient is anticoagulated with Coumadin as mentioned above. Code status. The patient's code status is do not resuscitate and MOLST was updated. In regards to hypertension, currently controlled, although I suspect the patient is going to have fluctuating blood pressure and she may become hypertensive. At this point, I believe that risk of this patient having orthostatic hypotension and collapsing is higher and we probably should allow mild hypertension in this particular patient. It is also to be considered if the patient is a good candidate for continuation of anticoagulation due to her history of frequent falls. At this point, I will not change the dose of the patient's Coumadin, but will leave it to the patient's primary care provider and her ship's surveyor to discuss it further. TIME SPENT: Approximately 70 minutes were spent on the admission of this patient, more than half that time was spent [id number] with the patient during the interview and physical exam. CC: Dr. Dolan; Dr. Coe; Mirta Wasserman [place] * [id number]/[facility] #: [id number] [facility] HOSPITALBrittnee
[2016-11-04] MEDS: NS 0.9% 1000 ML* 1,000 ML IV SCH (23:11)
[2016-11-05] MEDS ORDERED: oxyCODONE/Acetamin 5/325 MG* TAB ONE (01:33)
[2016-11-05] MEDS ORDERED: oxyCODONE/Acetamin 5/325 MG* TAB PO PRN ×3 (01:38→15:11)
[2016-11-05 05:47] LABS: Hematocrit 37 % (35-47); Hemoglobin 12.1 g/dl (12.0-16.0); Mean Corpuscular HGB Conc 33 g/dl (31-36); Mean Corpuscular Hemoglobin 28 pg (27-31); Mean Corpuscular Volume 87 fL (80-97); Mean Platelet Volume 8 um3 (7.4-10.4); Red Blood Count 4.28 10^6/ul (4.0-5.4); Red Cell Distribution Width 16 % (10.5-15)
[2016-11-05 06:04] LABS: BUN/Creatinine Ratio 26.7 (8-20); Calcium 8.6 mg/dL (8.6-10.3); EGFR African American 63.6 (>60); EGFR Non-African American 49.5 (>60); Potassium 3.7 mmol/L (3.5-5.0)
[2016-11-05] MEDS ORDERED: Diltiazem CD CAP* 240 MG PO SCH (09:00)
[2016-11-05] MEDS: Senna TAB PO SCH ×2 (09:21→20:52)
[2016-11-05] MEDS: FLUoxetine CAP* 20 MG PO SCH (09:21)
[2016-11-05] MEDS: Docusate CAP* 100 MG PO SCH ×2 (09:21→20:52)
[2016-11-05] MEDS: Metoprolol Succinate XL TAB* 25 MG PO SCH (09:21)
[2016-11-05] MEDS: Diltiazem CD CAP* 180 MG PO SCH (09:21)
[2016-11-05] MEDS: CMC:Anastrozole (NF) 1 MG TAB PO SCH (09:24)
[2016-11-05] MEDS: NS 0.9% 1000 ML* 1,000 ML IV SCH ×2 (09:32→19:02)
--- NOTE | 2016-11-05 11:29 | ECHO ---
Patient: ANITRA REYES [facility] Rec#: [id number] : 1930 Date: 11/05/2016 Age: 86y Height: 162.56 cm / 64.0 in Weight: 71.67 kg / 158.0 lbs Sex: F BSA: 1.77 Room#: 435 Admit Date#: 11/04/2016 Type: Inpatient Referring: Eli Moyer MD Reading: Marielena Michelle MD Hand Plate Stacker: Cielo Carroll NIMA CC: Ervin Kamara MD CC: Kenn Dolan MD Transthoracic Echocardiogram Indication: Syncope BP: 171/61 HR: 60 Rhythm: NSR Findings History: Orthostatic hypotension,breast cancer s/p left mastectomy,mitral valve disorder,a/p pacer insert for SSS,depression,a-fib.PHTN. Technical Comments: The study was technically limited due to the patient's inability to lay in the left lateral decubitus position. Due to c/o left flank pain. Completed at 0830. Left Ventricle: The left ventricular chamber size is normal. Mild concentric left ventricular hypertrophy is observed. Global left ventricular wall motion and contractility are within normal limits. The estimated ejection fraction is 55-60%. There is abnormal ventricular septal wall motion consistent with right ventricular pacemaker. Abnormal left ventricular diastolic function is observed. Left Atrium: The left atrial chamber size is normal. Right Ventricle: The right ventricular cavity size is normal. The right ventricular global systolic function is normal. The septum has abnormal paradoxical motion consistent with RV pacemaker. A pacemaker wire is visualized in the right ventricle. Right Atrium: The right atrial cavity size is normal. A pacemaker wire is visualized in the right atrium. Aortic Valve: The aortic valve structure is not well visualized. There is mild aortic regurgitation. There is no evidence of aortic stenosis. Mitral Valve: The mitral valve leaflets are mildly thickened. Mitral valve leaflet mobility is mildly restricted. There is mild to moderate mitral regurgitation. There is no evidence of mitral stenosis. Tricuspid Valve: The tricuspid valve leaflets are normal. There is moderate tricuspid regurgitation. The tricuspid regurgitant jet is directed toward the septum. There is evidence of moderate pulmonary hypertension. There is no tricuspid stenosis. Pulmonic Valve: The pulmonic valve structure is not well visualized. Pericardium: A pericardial fat pad is visualized. Aorta: There is no dilatation of the ascending aorta. There is no dilatation of the aortic arch. There is no dilation of the aortic root. Pulmonary Artery: The main pulmonary artery is not well visualized. Venous: The inferior vena cava appears normal in size. There is a greater than 50% respiratory change in the inferior vena cava dimension. Conclusions Mild concentric left ventricular hypertrophy is observed. Global left ventricular wall motion and contractility are within normal limits. The estimated ejection fraction is 55-60%. Abnormal left ventricular diastolic function is observed. The right ventricular global systolic function is normal. There is mild aortic regurgitation. Mitral valve leaflet mobility is mildly restricted. There is mild to moderate mitral regurgitation. There is moderate tricuspid regurgitation. There is evidence of moderate pulmonary hypertension: 54 mmHg. Compared with pr ior echo of 05/13/16, the degree of MR and TR have increased, PA pressure has increased from 39 mmHg. Measurements Name Value Normal Range RVIDd (AP) 2D 2.9 cm (0.9 - 2.6) RVDdMajor (2D) 3.1 cm (2.2 - 4.4) RAd ISD 4CH 4.5 cm (3.4 - 4.9) RA (A4C)W 3.7 cm (2.9 - 4.6) IVSd (2D) 1.2 cm (0.6 - 1) LVPWd (2D) 1.1 cm (0.6 - 1) LVIDd (2D) 4.6 cm (3.6 - 5.4) LVIDs (2D) 3.1 cm - LV FS (2D) 32 % (25 - 45) Aortic Annulus 2 cm (1.4 - 2.6) Ao root diameter (2D) 3.1 cm (2.1 - 3.5) Ascending Ao 3.1 cm (2.1 - 3.4) Aortic arch 2.4 cm (1.8 - 3.4) Descending Ao 0.5 cm - LA dimension (AP) 2D 3.2 cm (2.3 - 3.8) LAd ISD 4CH 4.9 cm (2.9 - 5.3) LA ISD 4CH W 4 cm (2.5 - 4.5) Name Value Normal Range LA ESV SP 4CH (A/L) 54 ml - LA ESV SP 2CH (A/L) 49 ml - LA ESV BP (A/L) 56 ml - LA ESV BP (A/L) index 31.81 ml/m2 - LA ESV SP 4CH (MOD) 51 ml - LA ESV SP 2CH (MOD) 47 ml - Name Value Normal Range MV E-wave Vmax 1.2 m/sec - MV deceleration time 292 msec - MV A-wave Vmax 1.3 m/sec - MV E:A ratio 0.97 ratio - LV septal e' Vmax 0.03 m/sec - LV lateral e' Vmax 0.05 m/sec - LV E:e' septal ratio 40 ratio - LV E:e' lateral ratio 24 ratio - Name Value Normal Range AV Vmax 1.9 m/sec - AV VTI 45.6 cm - AV peak gradient 14.41 mmHg - AV mean gradient 8.16 mmHg - LVOT Vmax 1.1 m/sec - LVOT VTI 23.1 cm - LVOT peak gradient 4.48 mmHg - LVOT mean gradient 1.51 mmHg - AR PHT 429 msec - AR peak gradient 60.34 mmHg - Name Value Normal Range TR Vmax 3.6 m/sec - TR peak gradient 51 mmHg - RAP 3 mmHg - RVSP 54 mmHg - IVC diameter 1.3 cm - Name Value Normal Range PV Vmax 1.2 m/sec - PV peak gradient 5.75 mmHg -
--- NOTE | 2016-11-05 19:07 | PN ---
Subjective Date of Service: 11/05/16 Interval History: Patient seen this afternoon with son present. Reports back pain overnight, still feels a little unsteady on her feet when she stands and was light-headed with PT today. Denies chest pain or SOB. Feels constipated. Family History: Unchanged from Admission Social History: Unchanged from Admission Past Medical History: Unchanged from Admission Objective Active Medications: Acetaminophen (Tylenol Tab*) 650 mg PO Q4H PRN Al Hydrox/Mg Hydrox/Simethicone (Maalox Plus*) 15 ml PO Q4HR PRN Anastrozole (Arimidex (Nf)) 1 mg PO QAM [facility] Bisacodyl (Dulcolax Supp*) 10 mg RI QPM PRN Diltiazem HCl (Cardizem Cd Cap*) 180 mg PO DAILY [facility] Docusate Sodium (Colace Cap*) 100 mg PO BID [facility] Fluoxetine HCl (Prozac Cap*) 40 mg PO DAILY [facility] Sodium Chloride (Ns 0.9% 1000 Ml*) 1,000 mls @ 125 mls/hr IV PER RATE [facility] Magnesium Hydroxide (Milk Of Magnesia Liq*) 30 ml PO Q4H PRN Magnesium Hydroxide (Milk Of Magnesia Liq*) 30 ml PO DAILY PRN Metoprolol Succinate (Toprol Xl Tab*) 25 mg PO DAILY [facility] Oxycodone/Acetaminophen (Percocet 5/325 Tab*) 2 tab PO Q6H PRN Oxycodone/Acetaminophen (Percocet 5/325 Tab*) 1 tab PO Q6H PRN Polyethylene Glycol/Electrolytes (Miralax*) 17 gm PO DAILY [facility] Senna (Senokot Tab*) 1 tab PO BID [facility] Sodium Biphosphate/Sodium Phosphate (Fleet Enema*) 1 bottle RI QAM PRN Warfarin Sodium (Coumadin Tab(*)) 1.25 mg PO Th@1700 [facility] Warfarin Sodium (Coumadin Tab(*)) 2.5 mg PO SuMoTuWeFrSa@1700 [facility] Vital Signs 11/05/16 11/05/16 11/05/16 15:13 15:17 16:02 Pulse Rate 62 Respiratory 16 16 Rate Blood Pressure 152/63 (mmHg) 11/05/16 16:03 Pulse Rate 73 Respiratory Rate Blood Pressure 144/57 (mmHg) Oxygen Devices in Use Now: None Appearance: Elderly, F, sitting in chair in NAD Eyes: No Scleral Icterus Ears/Nose/Mouth/Throat: Mucous Membranes Moist Neck: NL Appearance and Movements; NL JVP Respiratory: Symmetrical Chest Expansion and Respiratory Effort, Clear to Auscultation Cardiovascular: NL Sounds; No Murmurs; No JVD, RRR Abdominal: NL Sounds; No Tenderness; No Distention Lymphatic: No Cervical Adenopathy Extremities: - - Mild B/L LE edema Skin: No Rash or Ulcers Neurological: Alert and Oriented x 3 Result Diagrams: 11/05/16 05:22 11/05/16 05:22 Additional Lab and Data: Assess/Plan/Problems-Billing Assessment: Syncope 2/2 orthostatic hypotension in an 86 yo F with hx of pAF on coumadin, sinus node dysfunction s/p PPM, breast cancer - Patient Problems (1) Orthostatic hypotension Current Visit: Yes Comment: Still with some symptoms today, will continue to monitor. Left IVF running all day. In afternoon still had positive orthostatics (lying to sitting) but no symptoms. Continue decreased Cardizem dose, allowing for hypertension. (2) Atrial fibrillation Current Visit: No Comment: Continue Diltiazem and Metoprolol. INR slightly elevated, will hold coumadin tonight. Should discuss with PCP merits of continuing AC. (3) Constipation Current Visit: Yes Comment: Increase bowel regimen (4) DVT prophylaxis Current Visit: No Comment: On coumadin
[2016-11-05] MEDS: Polyethylene Glycol 3350* 17 GM PACKET PO SCH (19:20)
[2016-11-05] MEDS: Warfarin TAB(*) 2.5 MG PO SCH (19:30)
--- NOTE | 2016-11-06 09:47 | DCNOTE ---
Patient seen this morning. Feels well. No headache, chest pain, SOB. Had large BM overnight. Has been ambulating with help to the bathroom with no dizzines/ light-headedness. BPs have been on the higher side. On exam, RRR, BRAN, abd soft, NTND, BS hyperactive, no LE edema. Plan to discharge to [facility] today. BPs have been labile this admission but on the higher side this morning, will recheck after AM medications. Will likely need some further adjustment as an outpatient but would likely do better with pressures slightly high rather than slightly low.
[2016-11-06] MEDS: Metoprolol Succinate XL TAB* 25 MG PO SCH (10:15)
[2016-11-06] MEDS: FLUoxetine CAP* 20 MG PO SCH (10:15)
[2016-11-06] MEDS: Senna TAB PO SCH (10:15)
[2016-11-06] MEDS: Diltiazem CD CAP* 180 MG PO SCH (10:15)
[2016-11-06] MEDS: CMC:Anastrozole (NF) 1 MG TAB PO SCH (10:15)
[2016-11-06] MEDS: Docusate CAP* 100 MG PO SCH (10:15)
[2016-11-06] MEDS: Polyethylene Glycol 3350* 17 GM PACKET PO SCH (10:15)
--- NOTE | 2016-11-06 12:07 | DS ---
CC: Mirta Wasserman NP DISCHARGE SUMMARY: DATE OF ADMISSION: 11/04/16 DATE OF DISCHARGE: 11/06/16 PRIMARY CARE PROVIDER: Mirta Wasserman NP, at [facility]. PRINCIPAL DISCHARGE DIAGNOSES: 1. Orthostatic hypotension. 2. Hyponatremia. SECONDARY DIAGNOSES: 1. History of breast cancer. 2. Sinus node dysfunction, status post pacemaker. 3. Depression. 4. History of paroxysmal atrial fibrillation, on Coumadin. 5. Hypertension. DISCHARGE MEDICATION REGIMEN: 1. Diltiazem 180 mg by mouth daily. 2. Percocet 5/325 one tablet by mouth every 6 hours as needed for pain. 3. Fluoxetine 40 mg by mouth daily. 4. Metoprolol succinate 25 mg by mouth daily. 5. Anastrozole 1 mg by mouth every morning. 6. Cranberry 450 mg by mouth daily. 7. Senna 1 tablet by mouth at bedtime. 8. Probiotic 4 mg by mouth nightly. 9. Tylenol 650 mg by mouth at bedtime. 10. Coumadin 1.25 mg on , 2.5 mg every other day. 11. Conjugated estrogen 1 application vaginally, Tuesdays and . 12. Ensure 1 can by mouth daily. 13. Dulcolax 10 mg by mouth every night as needed for constipation. 14. Tylenol 650 mg per rectum every 6 hours as needed for pain if unable to take p.o. 15. Fleet Enema one enema per rectal every morning as needed for constipation. 16. Mylanta 15 mL by mouth every 4 hours as needed for dyspepsia. 17. Tylenol 650 mg by mouth every 4 hours as needed for pain. 18. Magnesium hydroxide 30 mL daily as needed for constipation. STUDIES DONE DURING CONSULTATION: CT of the brain, impression: No evidence for gross acute infarct, mass effect, or hemorrhage. Old lacunar infarcts, moderate-to- severe chronic small vessel ischemic changes. Chest x-ray, impression: Pacemaker in place, no evidence for acute findings. Transthoracic echocardiogram, conclusion: Mild concentric LVH, normal global left ventricular wall motion and contractility, EF of 55% to 60%, abnormal left ventricular diastolic function is observed, right ventricular global systolic function is normal, mild aortic regurgitation, mitral valve leaflet mobility is mildly restricted, [id number] mitral regurgitation, moderate tricuspid regurgitation, moderate pulmonary hypertension. Compared with the prior echo of 05/13/16, the degree of MR and TR has increased, PA pressure has increased from 39 mmHg. HISTORY OF PRESENT ILLNESS AND HOSPITAL SUMMARY: Please see the full history and physical by Dr. Eli Moyer for full details. Briefly, Ms. Law is an 86-year- old female who was recently discharged from the hospital on 11/03/16 when she presented with falls and weakness and was noted to be markedly hypertensive. Her medications were changed at that admission. Her hydrochlorothiazide was stopped and replaced with amlodipine on arrival to the hospital. At this admission, she presented after an episode of syncope. She was noted to be unresponsive and is noted to have positive orthostatics here in the hospital with the systolic pressure dropping to the 70s at the lowest. Her amlodipine was stopped and her Cardizem dose was decreased from 240 to 180 mg by mouth daily. She was given some IV fluids. Over the course of hospitalization, her blood pressures were fairly labile, very high at times, and also at times dropping into the double digits. It was felt that we can be more liberal with her parameters as she has had such issues with syncope associated with low blood pressures, so she was kept on the current medication regimen of the decreased dose of diltiazem along with her previous metoprolol and the amlodipine was stopped. She still felt shaky on second day of admission, however, this improved. On the day of discharge, she was able to ambulate with no issues. The night prior to discharge, she was noticed to still be orthostatic with a drop in her systolics from 180 to 152 when going from lying to sitting; however, sitting to standing was relatively stable. She did not have further symptoms after this. She may need some further adjustment of her medications as an outpatient as we obviously would not like her to be persistently elevated in the 160s to 180s. However, she does tend to be very sensitive to medications. She also would be continued on Coumadin for now. However, she continues to have issues with varying blood pressures that lead to falls, it may be a good idea to consider taking her off this. TIME SPENT: Total time spent on this discharge 45 minutes. This is a summary of the hospitalization, please see the full medical record for further details. [id number]/[facility] #: [id number] [facility] HOSPITALBrittnee
[2016-11-06 12:34] VITALS: BP 145/61
[2016-11-06] MEDS ORDERED: Warfarin TAB(*) 2.5 MG PO SCH (17:00)
== END 2016-11-06 13:35 | DRG 312 ==
LOC: ED 10:34 → MEDTELE 15:46 → OBSVTOIN 11-05 15:10
PROVIDERS: ADMIT Internal Medicine; ATTEND Hospitalist
DX: I95.1 Orthostatic hypotension (principal); E87.1 Hypo-osmolality and hyponatremia; I27.2 Other secondary pulmonary hypertension; I48.0 Paroxysmal atrial fibrillation; E86.0 Dehydration; F32.9 Major depressive disorder, single episode, unspecified; I08.1 Rheumatic disorders of both mitral and tricuspid valves; I10 Essential (primary) hypertension; Z87.440 Personal history of urinary (tract) infections; Z88.1 Allergy status to other antibiotic agents; Z88.8 Allergy status to other drugs, medicaments and biological substances; Z86.73 Personal history of transient ischemic attack (TIA), and cerebral infarction without residual deficits; F41.0 Panic disorder [episodic paroxysmal anxiety]; Z17.0 Estrogen receptor positive status [ER+]; E78.5 Hyperlipidemia, unspecified; Z85.3 Personal history of malignant neoplasm of breast; Z95.810 Presence of automatic (implantable) cardiac defibrillator; I00 Rheumatic fever without heart involvement; Z98.42 Cataract extraction status, left eye; Z98.41 Cataract extraction status, right eye; F41.9 Anxiety disorder, unspecified; Z80.3 Family history of malignant neoplasm of breast; K59.00 Constipation, unspecified
CPT/HCPCS: 36415; 70450; 71010; 80048; 80053; 83605; 84484; 85025; 85610; 85730; 87040; 93005; 93306; A9270-GY; G8978-GP-CJ; G8979-GP-CI; G8980-GP-CJ

== ENCOUNTER 2017-06-28 19:56 | Inpatient (IN) | payer MEDICARE ==
[2017-06-28] MEDS ORDERED: Aspirin TAB* 325 MG PO ONE (20:10)
[2017-06-28] MEDS ORDERED: Diltiazem IV* 5 MG/ML 5 ML VIAL (for loading dose/IV Push) (25 MG) IV SLOW PU ONE ×2 (21:01→22:50)
--- NOTE | 2017-06-28 21:04 | RAD ---
Indication: Atrial fibrillation. Weakness. Hypertension. Comparison: No relevant prior exams available on the [facility] PACS for comparison. Technique: Upright AP 2030 hours Report: Mild prominence of the interstitial markings with subtle peripheral thickened interlobular septa. Trace fluid in the RIGHT minor fissure. Negative for pneumothorax. Cardiomegaly. RIGHT atrial and RIGHT ventricular level pacemaker leads. Unremarkable central pulmonary vasculature and mediastinal contours. Negative for free air beneath the diaphragm. IMPRESSION: Cardiomegaly with probable mild interstitial edema.
[2017-06-28 21:18] LABS: Hematocrit 38 % (35-47); Hemoglobin 12.5 g/dl (12.0-16.0); Mean Corpuscular HGB Conc 33 g/dl (31-36); Mean Corpuscular Hemoglobin 27 pg (27-31); Mean Corpuscular Volume 82 fL (80-97); Mean Platelet Volume 8 um3 (7.4-10.4); Red Blood Count 4.67 10^6/ul (4.0-5.4); Red Cell Distribution Width 17 % (10.5-15); White Blood Count 10.9 10^3/ul (3.5-10.8)
[2017-06-28 21:28] LABS: Albumin 3.7 g/dL (3.2-5.2); BUN/Creatinine Ratio 30.7 (8-20); Calcium 9.3 mg/dL (8.6-10.3); EGFR African American 66.4 (>60); EGFR Non-African American 51.6 (>60); Globulin 3.8 g/dL (2-4); Magnesium 2.1 mg/dL (1.9-2.7); Potassium 4.1 mmol/L (3.5-5.0); Total Bilirubin 0.6 mg/dL (0.2-1.0); Total Protein 7.5 g/dL (6.4-8.9)
[2017-06-28 21:32] LABS: Troponin I 0.06 ng/mL (<0.04)
[2017-06-28 22:13] LABS: TSH (Thyroid Stimulating Horm) 9.16 mcIU/mL (0.34-5.60)
[2017-06-28] MEDS ORDERED: Diltiazem DRIP* 100 MG/100 ML ADDV.BAG IVPB ONE (22:50)
[2017-06-28] MEDS ORDERED: Bisacodyl SUPP* 10 MG SUPP PR PRN (23:06)
[2017-06-28] MEDS ORDERED: Acetaminophen SUPP* 650 MG SUPP PR PRN (23:06)
--- NOTE | 2017-06-28 23:14 | HP ---
H&P (Free Text) History and Physical: PCP: Melchor Kamara MD Date/Time of Evaluation: 06/28/2017 2200 CC: uncontrolled AFIB HPI: Mrs Law is an 87YO female resident of [facility] orthostasis, breast CA , pacer, pAFIB on warfarin, HTN, & pulmonary HTN who was in her normal state of health , but awoke Thursday finding herself to be generally very weak upon getting out of bed prompting her to be evaluated by a [facility] nurse who found her to be in AFIB/RVR. Efforts there through the week have failed to maintain control of her rate and so prompting transfer tonight for more aggressive management than is feasible in the outpatient setting. She reports some SOB, dry heaves associated with sweats, palpitations, and feeling as though she may pass out. She denies F/C, changes in bowel/bladder, focal W/N/T, change in speech, or other issues. Currently her rate is much better controlled on a diltizem GTT and she is feeling better. PMedHx breast CA pAFIB on warfarin HTN pulmonary HTN orthostasis Ambulatory Orders Anastrozole (NF) [Arimidex (NF)] 1 mg PO QAM 08/17/15 Acetaminophen TAB* [Tylenol TAB*] 650 mg PO BEDTIME PRN 05/13/16 FLUoxetine CAP* [Prozac CAP*] 40 mg PO DAILY 05/15/16 Metoprolol Succinate XL TAB* [Toprol XL TAB*] 25 mg PO DAILY #30 tab.xl Acetaminophen SUPP* [Tylenol Supp*] 650 mg WA Q6H PRN 11/04/16 Bisacodyl SUPP* [Dulcolax Supp*] 10 mg PO QPM PRN 11/04/16 Conjugated Estrogens VAG CM* [Premarin VAG CREAM*] 1 applic VAGINAL TUTH Cranberry (Vaccinium Macrocarp [Cranberry] 450 mg PO DAILY 11/04/16 Magnesium Hydroxide LIQ* [Milk of Magnesia LIQ*] 30 ml PO QAM PRN 11/04/16 Probiotic Product [Align] 4 mg PO QPM 11/04/16 Senna TAB* [Senokot TAB*] 2 tab PO BEDTIME 11/04/16 Warfarin TAB(*) [Coumadin TAB(*)] 2.5 mg PO DAILY 11/04/16 Diltiazem CD CAP* [Cardizem CD CAP*] 180 mg PO DAILY cap.cd 11/06/16 Cholecalciferol [Vitamin D3 Ultra Potency] 50,000 unit PO WEEKLY 06/28/17 Melatonin 6 mg PO BEDTIME 06/28/17 Allergies Levofloxacin [From Levaquin] Allergy (Unknown, Verified 08/17/15 13:05) Unknown Reaction Details Nitrofurantoin [From Macrodantin] Allergy (Unknown, Verified 08/17/15 13:05) Unknown Reaction Details SocHx: no tobacco, alcohol, or recreational drugs; , lives at [facility]; DNR/I code status, MOLST filled out FamHx: positive for HTN ROS: as above, otherwise reviewed and all were negative Constitutional: NAD, normally developed, overweight elderly white female vitals: Vital Signs Temp 36.3 C 06/28/17 20:02 Pulse 107 06/28/17 22:00 Resp 22 06/28/17 22:00 BP 151/115 06/28/17 22:00 Pulse Ox 95 06/28/17 22:00 Intake & Output 06/27/17 06/28/17 06/28/17 23:59 11:59 23:59 Weight 75.296 kg HEENM: atraumatic; sclera/conjunctiva: non-icteric/clear; hearing: clinically intact; oropharynx: clear, mucosa moist Neck: soft tissue: non-tender; thyroid: normal Pulmonary: clear to auscultation bilaterally, good aeration, no accessory muscle use CV: RR/RR, normal S1S2, no carotid bruit, no jugular venous distention, 2+ B DP/ PT, no edema Abdominal: soft, non-distended, non-tender, no rebound/guarding/rigidity, normoactive bowel sounds, no hepatosplenomegaly or masses, no costovertebral angle tenderness Musculoskeletal: general: grossly intact, no palpable tenderness Integumental: normal appearance and texture of exposed skin Psychiatric orientation: AA&O to PPS affect: calm mood: pleasant eye contact: good content: reliable responses: timely insight: good Testing: Lab Results 06/28/17 06/28/17 06/28/17 Range/Units 20:45 20:45 20:45 WBC 10.9 H (3.5-10.8) 10^3/ul RBC 4.67 (4.0-5.4) 10^6/ul Hgb 12.5 (12.0-16.0) g/dl Hct 38 (35-47) % MCV 82 (80-97) fL MCH 27 (27-31) pg MCHC 33 (31-36) g/dl RDW 17 H (10.5-15) % Plt Count 394 (150-450) 10^3/ul MPV 8 (7.4-10.4) um3 Neut % (Auto) 74.4 (38-83) % Lymph % (Auto) 15.2 L (25-47) % Vermillion % (Auto) 8.2 (1-9) % Eos % (Auto) 1.5 (0-6) % Baso % (Auto) 0.7 (0-2) % Absolute Neuts (auto) 8.1 H (1.5-7.7) 10^3/ul Absolute Lymphs (auto) 1.7 (1.0-4.8) 10^3/ul Absolute Monos (auto) 0.9 H (0-0.8) 10^3/ul Absolute Eos (auto) 0.2 (0-0.6) 10^3/ul Absolute Basos (auto) 0.1 (0-0.2) 10^3/ul Absolute Nucleated RBC 0 10^3/ul Nucleated RBC % 0 INR (Anticoag Therapy) 3.49 H (0.89-1.11) APTT 41.4 H (26.0-36.3) seconds Sodium 131 L (133-145) mmol/L Potassium 4.1 (3.5-5.0) mmol/L Chloride 101 (101-111) mmol/L Carbon Dioxide 21 L (22-32) mmol/L Anion Gap 9 (2-11) mmol/L BUN 31 H (6-24) mg/dL Creatinine 1.01 H (0.51-0.95) mg/dL Est GFR ( Amer) 66.4 (>60) Est GFR (Non-Af Amer) 51.6 (>60) BUN/Creatinine Ratio 30.7 H (8-20) Glucose 122 H (70-100) mg/dL Lactic Acid (0.5-2.0) mmol/L Calcium 9.3 (8.6-10.3) mg/dL Magnesium 2.1 (1.9-2.7) mg/dL Total Bilirubin 0.60 (0.2-1.0) mg/dL AST 34 (13-39) U/L ALT 27 (7-52) U/L Alkaline Phosphatase 58 (34-104) U/L Total Creatine Kinase 45 (10-223) U/L CK-MB (CK-2) 2.5 (0.6-6.3) ng/mL Troponin I 0.06 H* (<0.04) ng/mL B-Natriuretic Peptide ( - 100) pg/mL Total Protein 7.5 (6.4-8.9) g/dL Albumin 3.7 (3.2-5.2) g/dL Globulin 3.8 (2-4) g/dL Albumin/Globulin Ratio 1.0 (1-3) TSH 9.16 H (0.34-5.60) mcIU/mL 06/28/17 06/28/17 Range/Units 20:45 20:45 WBC (3.5-10.8) 10^3/ul RBC (4.0-5.4) 10^6/ul Hgb (12.0-16.0) g/dl Hct (35-47) % MCV (80-97) fL MCH (27-31) pg MCHC (31-36) g/dl RDW (10.5-15) % Plt Count (150-450) 10^3/ul MPV (7.4-10.4) um3 Neut % (Auto) (38-83) % Lymph % (Auto) (25-47) % Vermillion % (Auto) (1-9) % Eos % (Auto) (0-6) % Baso % (Auto) (0-2) % Absolute Neuts (auto) (1.5-7.7) 10^3/ul Absolute Lymphs (auto) (1.0-4.8) 10^3/ul Absolute Monos (auto) (0-0.8) 10^3/ul Absolute Eos (auto) (0-0.6) 10^3/ul Absolute Basos (auto) (0-0.2) 10^3/ul Absolute Nucleated RBC 10^3/ul Nucleated RBC % INR (Anticoag Therapy) (0.89-1.11) APTT (26.0-36.3) seconds Sodium (133-145) mmol/L Potassium (3.5-5.0) mmol/L Chloride (101-111) mmol/L Carbon Dioxide (22-32) mmol/L Anion Gap (2-11) mmol/L BUN (6-24) mg/dL Creatinine (0.51-0.95) mg/dL Est GFR ( Amer) (>60) Est GFR (Non-Af Amer) (>60) BUN/Creatinine Ratio (8-20) Glucose (70-100) mg/dL Lactic Acid 1.3 (0.5-2.0) mmol/L Calcium (8.6-10.3) mg/dL Magnesium (1.9-2.7) mg/dL Total Bilirubin (0.2-1.0) mg/dL AST (13-39) U/L ALT (7-52) U/L Alkaline Phosphatase (34-104) U/L Total Creatine Kinase (10-223) U/L CK-MB (CK-2) (0.6-6.3) ng/mL Troponin I (<0.04) ng/mL B-Natriuretic Peptide 1536 H ( - 100) pg/mL Total Protein (6.4-8.9) g/dL Albumin (3.2-5.2) g/dL Globulin (2-4) g/dL Albumin/Globulin Ratio (1-3) TSH (0.34-5.60) mcIU/mL ECG, personally reviewed: AFIB RVR rate 132, ST depression V5-6, I, & II CXR, personally reviewed: IMPRESSION: Cardiomegaly with probable mild interstitial edema. US venous BLE: ordered, pending Impression: 87F presenting with uncontrolled AFIB/RVR failed outpatient management DIAGNOSIS & PLAN Primary AFIB/RVR : diltiazem IV bolus/GTT : supretherapeutic on warfarin : telemetry : supplemental oxygen : supportive care elevated troponin : 2nd demand ischemia from AFIB/RVR : trend : telemetry : supplemental oxygen elevated BNP : not felt to be 2nd CHF/volume overload, no edema/JVD/cellophane crackles : 2nd poor cardiac output from uncontrolled AFIB/RVR : monitor respiratory status & rate control as above YUE : 2nd poor cardiac output from uncontrolled AFIB/RVR : rate control as above : clinically euvolemic : trend renal function warfarin toxicity : hold until INR 2-3 : no evidence of bleeding : monitor H&H periodically Secondary HX breast CA : no acute issues HTN : review meds once reconciled pulmonary HTN : review meds once reconciled orthostasis : review meds once reconciled Admission Rational: CDU observation for uncontrolled AFIB DVTp: warfarin on hold until INR therapeutic Code Status: full HCP: daughterKarla
[2017-06-28] MEDS ORDERED: Ondansetron INJ* 2 MG/ML VIAL ONE (23:29)
[2017-06-28] MEDS ORDERED: Ondansetron INJ* 2 MG/ML VIAL IV ONE (23:33)
[2017-06-29] MEDS: CMCS Melatonin (NF) 3 MG TAB PO SCH ×2 (01:35→21:45)
[2017-06-29 05:40] LABS: Hematocrit 37 % (35-47); Hemoglobin 12.3 g/dl (12.0-16.0); Mean Corpuscular HGB Conc 33 g/dl (31-36); Mean Corpuscular Hemoglobin 27 pg (27-31); Mean Corpuscular Volume 83 fL (80-97); Mean Platelet Volume 8 um3 (7.4-10.4); Red Blood Count 4.49 10^6/ul (4.0-5.4); Red Cell Distribution Width 17 % (10.5-15)
[2017-06-29 05:57] LABS: BUN/Creatinine Ratio 32.3 (8-20); EGFR African American 70.4 (>60); EGFR Non-African American 54.7 (>60); Potassium 4.2 mmol/L (3.5-5.0)
[2017-06-29 06:01] LABS: Troponin I 0.05 ng/mL (<0.04)
--- NOTE | 2017-06-29 08:39 | RAD ---
INDICATION: Atrial fibrillation. Assess for DVT. COMPARISON: April 30, 2006 ultrasound. TECHNIQUE: Cooley scale, color Doppler, and spectral analysis of the deep veins of the BILATERAL lower extremities. Vessel compression, phasicity, and augmentation assessed. REPORT: The RIGHT common femoral, great saphenous, profunda femoral, femoral, popliteal, peroneal, and posterior tibial veins are patent. The LEFT common femoral, great saphenous, profunda femoral, femoral, popliteal, peroneal, and posterior tibial veins are patent. IMPRESSION: Negative for RIGHT or LEFT lower extremity DVT.
[2017-06-29] MEDS: Metoprolol Succinate XL TAB* 25 MG PO SCH (09:14)
[2017-06-29] MEDS: CMCS: Anastrozole (NF) 1 MG TAB PO SCH (09:14)
[2017-06-29] MEDS: FLUoxetine CAP* 20 MG PO SCH (09:14)
[2017-06-29 10:40] LABS: Urine Bacteria 3+ (Absent); Urine Bilirubin Negative (Negative); Urine Glucose Negative (Negative); Urine Nitrite Negative (Negative)
[2017-06-29] MEDS: Diltiazem CD CAP* 180 MG PO SCH (12:20)
--- NOTE | 2017-06-29 13:11 | ED ---
Chau Negron Rebecca, scribed for Annalee Packer MD on 06/28/17 at 2046 . Palpitations / Dysrhythmia - HPI Summary HPI Summary: Pt is an 87 y/o F with a PMHx A Fib BIBA from [facility] ([facility]) who presents to ED c/o palpitations characterized as fast for the last 2 days. Sx aggravated and alleviated by nothing. Additionally c/o SOB this afternoon, nausea, decreased appetite and generalized weakness. Notes elevated BP the last few days and bilateral decreased hand strength for a few weeks. SOB and nausea are currently resolved. Denies CP, edema, fever, cough, FUENTES. Pt was advised to come to [facility] ED by Dr. Abarca (PCP) today. No PMHx ID or CHF. PMHx A Fib - typically episodes resolve after about an hour. No SHx smoking. Is on Coumadin. Allergies to Levofloxacin and Nitrofurantoin. Bus Steward is Dr. Dolan. - History of Current Complaint Chief Complaint: EDDysrhythmPalp Time Seen by Provider: 06/28/17 20:01 Hx Obtained From: Patient Onset/Duration: Lasting Days, Still Present Severity Currently: Moderate Character: Fast Aggravating: Nothing Alleviating: Nothing Associated Signs & Symptoms: Shortness of Breath - resolved, Nausea - resolved Related History: Similar Episode/Dx as - Prior A Fib episodes, though they usually last an hour - Allergy/Home Medications Allergies/Adverse Reactions: Allergies Allergy/AdvReac Type Severity Reaction Status Date / Time Levofloxacin [From Levaquin] Allergy Unknown Unknown Verified 08/17/15 13:05 Reaction Details Nitrofurantoin Allergy Unknown Unknown Verified 08/17/15 13:05 [From Macrodantin] Reaction Details Home Medications: Home Medications Cholecalciferol [Vitamin D3 Ultra Potency] 50,000 unit PO WEEKLY 06/28/17 [ History Confirmed 06/28/17] Melatonin 6 mg PO BEDTIME 06/28/17 [History Confirmed 06/28/17] PMH/Surg Hx/FS Hx/Imm Hx Endocrine/Hematology History: Reports: Hx Anticoagulant Therapy Denies: Hx Diabetes, Hx Thyroid Disease Cardiovascular History: Reports: Hx Atrial Fibrillation, Hx Auto Implanted Cardiovert Defib, Hx Hypertension, Hx Pacemaker/ICD, Hx Syncope, Hx Valvular Heart Disease - TRICUSPID INSUFFIENCY Denies: Hx Congestive Heart Failure Comment Only: Other Cardiovascular Problems/Disorders - PACEMAKER/AFIB Respiratory History: Reports: Hx Pulmonary Edema - PULMONARY HTN Denies: Hx Chronic Obstructive Pulmonary Disease (COPD), Other Respiratory Problems/Disorders GI History: Reports: Hx Obstructive Bowel Denies: Other GI Disorders History: Reports: Hx Kidney Infection Denies: Hx Renal Disease, Other Problems/Disorders Musculoskeletal History: Reports: Hx Arthritis - rheumatoid arthritis, Hx Rheumatoid Arthritis Denies: Hx Osteoporosis Sensory History: Reports: Hx Cataracts, Hx Contacts or Glasses, Hx Vision Problem, Hx Hearing Aid, Hx Hearing Problem, Other Sensory Impairments Opthamlomology History: Reports: Hx Cataracts, Hx Contacts or Glasses, Hx Vision Problem, Other Sensory Impairments Neurological History: Reports: Hx Transient Ischemic Attacks (TIA) Denies: Hx Dementia, Hx Developmental Delay, Hx Headaches, Hx Migraine, Hx Nerve Disease, Hx Seizures, Hx Spinal Cord Injury, Other Neuro Impairments/ Disorders Psychiatric History: Reports: Hx Anxiety, Hx Depression Denies: Hx Substance Abuse - Cancer History Cancer Type, Location and Year: Breast cancer Hx Chemotherapy: No Hx Radiation Therapy: No - Surgical History Surgery Procedure, Year, and Place: Hysterectomy, 2003, [facility]. Knee surg, 1950. B. cataracts, 2009. Appendectomy. Pacemaker, 2010. Left Breast Lumpectomy, 2013, [facility] Hx Anesthesia Reactions: No - Immunization History Date of Tetanus Vaccine: Unk Date of Influenza Vaccine: 08/02 Infectious Disease History: Denies: Hx Clostridium Difficile, Hx Hepatitis, Hx Human Immunodeficiency Virus (HIV), Hx of Known/Suspected MRSA, History Other Infectious Disease, Traveled Outside the [place] in Last 30 Days - Family History Known Family History: Positive: Hypertension - father, Other Family History: Positive family hx of breast CA. - Social History Alcohol Use: None Substance Use Type: Reports: None Smoking Status (MU): Never Smoked Tobacco Have You Smoked in the Last Year: No Review of Systems Positive: Other - Elevated BP, generalized weakness. Negative: Fever Positive: Palpitations - Fast. Negative: Chest Pain Positive: Shortness Of Breath - rsolved. Negative: Cough Positive: Nausea - resolved, Other - Decreased appetite Negative: Edema Neurological: Other - Bilateral decreased hand strength Negative: Headache All Other Systems Reviewed And Are Negative: Yes Physical Exam Triage Information Reviewed: Yes Vital Signs On Initial Exam: Initial Vitals Temp Pulse Resp BP Pulse Ox 97.4 F 126 18 158/106 97 06/28/17 20:02 06/28/17 20:02 06/28/17 20:02 06/28/17 20:02 06/28/17 20:02 Vital Signs Reviewed: Yes Appearance: Positive: No Pain Distress, Well-Nourished, Ill-Appearing Skin: Positive: Warm, Skin Color Reflects Adequate Perfusion Head/Face: Positive: Normal Head/Face Inspection Eyes: Positive: Normal ENT: Positive: Normal ENT inspection Neck: Positive: Supple Respiratory/Lung Sounds: Positive: Clear to Auscultation, Breath Sounds Present Cardiovascular: Positive: Tachycardia, Other - Irregular rhythm Abdomen Description: Positive: Nontender, Soft Bowel Sounds: Positive: Present Musculoskeletal: Positive: Normal, Strength/ROM Intact Neurological: Positive: Sensory/Motor Intact, Alert, Oriented to Person Place, Time, Facial Symmetry, Speech Normal Psychiatric: Positive: Normal - [place] Coma Scale Coma Scale Total: 15 Diagnostics - Vital Signs Vital Signs Temp Pulse Resp BP Pulse Ox 06/28/17 20:30 130 22 155/116 96 06/28/17 20:09 133 95 06/28/17 20:07 148/112 06/28/17 20:02 97.4 F 126 18 158/106 97 - Laboratory Lab Results: Lab Results 06/28/17 06/28/17 06/28/17 Range/Units 20:45 20:45 20:45 WBC 10.9 H (3.5-10.8) 10^3/ul RBC 4.67 (4.0-5.4) 10^6/ul Hgb 12.5 (12.0-16.0) g/dl Hct 38 (35-47) % MCV 82 (80-97) fL MCH 27 (27-31) pg MCHC 33 (31-36) g/dl RDW 17 H (10.5-15) % Plt Count 394 (150-450) 10^3/ul MPV 8 (7.4-10.4) um3 Neut % (Auto) 74.4 (38-83) % Lymph % (Auto) 15.2 L (25-47) % [place] % (Auto) 8.2 (1-9) % Eos % (Auto) 1.5 (0-6) % Baso % (Auto) 0.7 (0-2) % Absolute Neuts (auto) 8.1 H (1.5-7.7) 10^3/ul Absolute Lymphs (auto) 1.7 (1.0-4.8) 10^3/ul Absolute Monos (auto) 0.9 H (0-0.8) 10^3/ul Absolute Eos (auto) 0.2 (0-0.6) 10^3/ul Absolute Basos (auto) 0.1 (0-0.2) 10^3/ul Absolute Nucleated RBC 0 10^3/ul Nucleated RBC % 0 INR (Anticoag Therapy) 3.49 H (0.89-1.11) APTT 41.4 H (26.0-36.3) seconds Sodium 131 L (133-145) mmol/L Potassium 4.1 (3.5-5.0) mmol/L Chloride 101 (101-111) mmol/L Carbon Dioxide 21 L (22-32) mmol/L Anion Gap 9 (2-11) mmol/L BUN 31 H (6-24) mg/dL Creatinine 1.01 H (0.51-0.95) mg/dL Est GFR ( Amer) 66.4 (>60) Est GFR (Non-Af Amer) 51.6 (>60) BUN/Creatinine Ratio 30.7 H (8-20) Glucose 122 H (70-100) mg/dL Lactic Acid (0.5-2.0) mmol/L Calcium 9.3 (8.6-10.3) mg/dL Magnesium 2.1 (1.9-2.7) mg/dL Total Bilirubin 0.60 (0.2-1.0) mg/dL AST 34 (13-39) U/L ALT 27 (7-52) U/L Alkaline Phosphatase 58 (34-104) U/L Total Creatine Kinase 45 (10-223) U/L CK-MB (CK-2) 2.5 (0.6-6.3) ng/mL Troponin I 0.06 H* (<0.04) ng/mL B-Natriuretic Peptide ( - 100) pg/mL Total Protein 7.5 (6.4-8.9) g/dL Albumin 3.7 (3.2-5.2) g/dL Globulin 3.8 (2-4) g/dL Albumin/Globulin Ratio 1.0 (1-3) TSH 9.16 H (0.34-5.60) mcIU/mL Urine Color Urine Appearance Urine pH (5-9) Ur Specific [place] (1.010-1.030) Urine Protein (Negative) Urine Ketones (Negative) Urine Blood (Negative) Urine Nitrate (Negative) Urine Bilirubin (Negative) Urine Urobilinogen (Negative) Ur Leukocyte Esterase (Negative) Urine WBC (Auto) (Absent) Urine RBC (Auto) (Absent) Ur Squamous Epith Cells (Absent) Urine Bacteria (Absent) Urine Glucose (Negative) Urine Ascorbic Acid (Negative) 06/28/17 06/28/17 06/29/17 Range/Units 20:45 20:45 00:37 WBC (3.5-10.8) 10^3/ul RBC (4.0-5.4) 10^6/ul Hgb (12.0-16.0) g/dl Hct (35-47) % MCV (80-97) fL MCH (27-31) pg MCHC (31-36) g/dl RDW (10.5-15) % Plt Count (150-450) 10^3/ul MPV (7.4-10.4) um3 Neut % (Auto) (38-83) % Lymph % (Auto) (25-47) % [place] % (Auto) (1-9) % Eos % (Auto) (0-6) % Baso % (Auto) (0-2) % Absolute Neuts (auto) (1.5-7.7) 10^3/ul Absolute Lymphs (auto) (1.0-4.8) 10^3/ul Absolute Monos (auto) (0-0.8) 10^3/ul Absolute Eos (auto) (0-0.6) 10^3/ul Absolute Basos (auto) (0-0.2) 10^3/ul Absolute Nucleated RBC 10^3/ul Nucleated RBC % INR (Anticoag Therapy) (0.89-1.11) APTT (26.0-36.3) seconds Sodium (133-145) mmol/L Potassium (3.5-5.0) mmol/L Chloride (101-111) mmol/L Carbon Dioxide (22-32) mmol/L Anion Gap (2-11) mmol/L BUN (6-24) mg/dL Creatinine (0.51-0.95) mg/dL Est GFR ( Amer) (>60) Est GFR (Non-Af Amer) (>60) BUN/Creatinine Ratio (8-20) Glucose (70-100) mg/dL Lactic Acid 1.3 (0.5-2.0) mmol/L Calcium (8.6-10.3) mg/dL Magnesium (1.9-2.7) mg/dL Total Bilirubin (0.2-1.0) mg/dL AST (13-39) U/L ALT (7-52) U/L Alkaline Phosphatase (34-104) U/L Total Creatine Kinase (10-223) U/L CK-MB (CK-2) (0.6-6.3) ng/mL Troponin I 0.06 H* (<0.04) ng/mL B-Natriuretic Peptide 1536 H ( - 100) pg/mL Total Protein (6.4-8.9) g/dL Albumin (3.2-5.2) g/dL Globulin (2-4) g/dL Albumin/Globulin Ratio (1-3) TSH (0.34-5.60) mcIU/mL Urine Color Urine Appearance Urine pH (5-9) Ur Specific [place] (1.010-1.030) Urine Protein (Negative) Urine Ketones (Negative) Urine Blood (Negative) Urine Nitrate (Negative) Urine Bilirubin (Negative) Urine Urobilinogen (Negative) Ur Leukocyte Esterase (Negative) Urine WBC (Auto) (Absent) Urine RBC (Auto) (Absent) Ur Squamous Epith Cells (Absent) Urine Bacteria (Absent) Urine Glucose (Negative) Urine Ascorbic Acid (Negative) 06/29/17 06/29/17 06/29/17 Range/Units 05:30 05:30 05:30 WBC 9.0 (3.5-10.8) 10^3/ul RBC 4.49 (4.0-5.4) 10^6/ul Hgb 12.3 (12.0-16.0) g/dl Hct 37 (35-47) % MCV 83 (80-97) fL MCH 27 (27-31) pg MCHC 33 (31-36) g/dl RDW 17 H (10.5-15) % Plt Count 346 (150-450) 10^3/ul MPV 8 (7.4-10.4) um3 Neut % (Auto) (38-83) % Lymph % (Auto) (25-47) % [place] % (Auto) (1-9) % Eos % (Auto) (0-6) % Baso % (Auto) (0-2) % Absolute Neuts (auto) (1.5-7.7) 10^3/ul Absolute Lymphs (auto) (1.0-4.8) 10^3/ul Absolute Monos (auto) (0-0.8) 10^3/ul Absolute Eos (auto) (0-0.6) 10^3/ul Absolute Basos (auto) (0-0.2) 10^3/ul Absolute Nucleated RBC 10^3/ul Nucleated RBC % INR (Anticoag Therapy) 3.50 H (0.89-1.11) APTT (26.0-36.3) seconds Sodium 132 L (133-145) mmol/L Potassium 4.2 (3.5-5.0) mmol/L Chloride 101 (101-111) mmol/L Carbon Dioxide 23 (22-32) mmol/L Anion Gap 8 (2-11) mmol/L BUN 31 H (6-24) mg/dL Creatinine 0.96 H (0.51-0.95) mg/dL Est GFR ( Amer) 70.4 (>60) Est GFR (Non-Af Amer) 54.7 (>60) BUN/Creatinine Ratio 32.3 H (8-20) Glucose 122 H (70-100) mg/dL Lactic Acid (0.5-2.0) mmol/L Calcium 9.0 (8.6-10.3) mg/dL Magnesium (1.9-2.7) mg/dL Total Bilirubin (0.2-1.0) mg/dL AST (13-39) U/L ALT (7-52) U/L Alkaline Phosphatase (34-104) U/L Total Creatine Kinase (10-223) U/L CK-MB (CK-2) (0.6-6.3) ng/mL Troponin I 0.05 H* (<0.04) ng/mL B-Natriuretic Peptide ( - 100) pg/mL Total Protein (6.4-8.9) g/dL Albumin (3.2-5.2) g/dL Globulin (2-4) g/dL Albumin/Globulin Ratio (1-3) TSH (0.34-5.60) mcIU/mL Urine Color Urine Appearance Urine pH (5-9) Ur Specific [place] (1.010-1.030) Urine Protein (Negative) Urine Ketones (Negative) Urine Blood (Negative) Urine Nitrate (Negative) Urine Bilirubin (Negative) Urine Urobilinogen (Negative) Ur Leukocyte Esterase (Negative) Urine WBC (Auto) (Absent) Urine RBC (Auto) (Absent) Ur Squamous Epith Cells (Absent) Urine Bacteria (Absent) Urine Glucose (Negative) Urine Ascorbic Acid (Negative) 06/29/17 Range/Units 07:10 WBC (3.5-10.8) 10^3/ul RBC (4.0-5.4) 10^6/ul Hgb (12.0-16.0) g/dl Hct (35-47) % MCV (80-97) fL MCH (27-31) pg MCHC (31-36) g/dl RDW (10.5-15) % Plt Count (150-450) 10^3/ul MPV (7.4-10.4) um3 Neut % (Auto) (38-83) % Lymph % (Auto) (25-47) % [place] % (Auto) (1-9) % Eos % (Auto) (0-6) % Baso % (Auto) (0-2) % Absolute Neuts (auto) (1.5-7.7) 10^3/ul Absolute Lymphs (auto) (1.0-4.8) 10^3/ul Absolute Monos (auto) (0-0.8) 10^3/ul Absolute Eos (auto) (0-0.6) 10^3/ul Absolute Basos (auto) (0-0.2) 10^3/ul Absolute Nucleated RBC 10^3/ul Nucleated RBC % INR (Anticoag Therapy) (0.89-1.11) APTT (26.0-36.3) seconds Sodium (133-145) mmol/L Potassium (3.5-5.0) mmol/L Chloride (101-111) mmol/L Carbon Dioxide (22-32) mmol/L Anion Gap (2-11) mmol/L BUN (6-24) mg/dL Creatinine (0.51-0.95) mg/dL Est GFR ( Amer) (>60) Est GFR (Non-Af Amer) (>60) BUN/Creatinine Ratio (8-20) Glucose (70-100) mg/dL Lactic Acid (0.5-2.0) mmol/L Calcium (8.6-10.3) mg/dL Magnesium (1.9-2.7) mg/dL Total Bilirubin (0.2-1.0) mg/dL AST (13-39) U/L ALT (7-52) U/L Alkaline Phosphatase (34-104) U/L Total Creatine Kinase (10-223) U/L CK-MB (CK-2) (0.6-6.3) ng/mL Troponin I (<0.04) ng/mL B-Natriuretic Peptide ( - 100) pg/mL Total Protein (6.4-8.9) g/dL Albumin (3.2-5.2) g/dL Globulin (2-4) g/dL Albumin/Globulin Ratio (1-3) TSH (0.34-5.60) mcIU/mL Urine Color Roseanna Urine Appearance Cloudy Urine pH 5.0 (5-9) Ur Specific [place] 1.029 (1.010-1.030) Urine Protein 2+(100 mg/dl) H (Negative) Urine Ketones Trace H (Negative) Urine Blood 2+ H (Negative) Urine Nitrate Negative (Negative) Urine Bilirubin Negative (Negative) Urine Urobilinogen Negative (Negative) Ur Leukocyte Esterase 2+ H (Negative) Urine WBC (Auto) 3+(>20/hpf) H (Absent) Urine RBC (Auto) Absent (Absent) Ur Squamous Epith Cells Present H (Absent) Urine Bacteria 3+ H (Absent) Urine Glucose Negative (Negative) Urine Ascorbic Acid * H (Negative) Result Diagrams: 06/29/17 05:30 06/29/17 05:30 Lab Statement: Any lab studies that have been ordered have been reviewed, and results considered in the medical decision making process. - Radiology CXR Xray Interpretation: Positive (See Comments) - Cardiomegaly with probable mild interstitial edema. ED physician reviewed radiology report and agrees. Radiology Interpretation Completed By: Radiologist - EKG 2028 Cardiac Rate: Tachycardia - 132 bpm EKG Rhythm: Atrial Fibrillation ST Segment: Non-Specific - Non-specific ST T wave changes EKG Interpretation: Nl IV CT, nl QTC, negative axis (-23) EKG Comparison: Other - Compared with EKG on 11/05/2016, she is now in rapid A- Fib Re-Evaluation - Re-Evaluation First Eval Re-Evaluation Time: 23:16 Comment: Pt is doing well and HR is 128. Course/Dx - Course Assessment/Plan: Pt is an 87 y/o F with a PMHx A Fib BIBA from [facility] ( [facility]) who presents to ED c/o palpitations characterized as fast for the last 2 days. Additionally c/o SOB this afternoon, nausea, decreased appetite and generalized weakness. Notes elevated BP the last few days and bilateral decreased hand strength for a few weeks. SOB and nausea are currently resolved. Denies CP, edema, fever, cough, FUENTES. Pt was advised to come to [facility] ED by Dr. Abarca (PCP) today. No PMHx ID or CHF. PMHx A Fib - typically episodes resolve after about an hour. No SHx smoking. Is on Coumadin. Allergies to Levofloxacin and Nitrofurantoin. Troponin of 0.06, WBC of 10.9. CXR reveals cardiomegaly with probable mild interstitial edema. EKG is rapid A Fib with non- specific ST T wave changes. In the ED course, pt received Deltiazem and ASA. Discussed care of pt with Dr. Morales who will admit the pt upon blood work return. Pt will be admitted with Dx of CHF and A Fib. She understands and agrees. Allergies noted. Patient medications reviewed this visit. Elevated BP noted and advised to f/u with PCP. - Diagnoses Provider Diagnoses: Atrial fibrillation with rapid ventricular response, CHF (congestive heart failure) - Physician Notifications Discussed Care Of Patient With: Benjamin Morales Time Discussed With Above Provider: 21:13 Instructed by Provider To: Other - Will admit the pt after her blood work returns. - Critical Care Time Critical Care Time: 30-74 min - 30 minutes Discharge - Discharge Plan Condition: Stable Disposition: ADMITTED TO [facility] documentation as recorded by the Chau polo Rebecca accurately reflects the service I personally performed and the decisions made by , Annalee Packer MD.
--- NOTE | 2017-06-29 16:11 | PN ---
Subjective Date of Service: 06/29/17 Interval History: Patient seen and examined at bedside. Ms. Law reports that she woke up on Thursday and noted that she started to feel "lousy" after breakfast. She was seen by Dr. Kamara as the health clinic at [facility]. Her medications were adjusted but she continued to struggle with fatigue and generalized weakness and fast HR. She was found to be in afib with RVR and was brought to the ED. She currently is feeling better, though continues to report fatigue. Denies CP, SOB, abd pain, n /v. Telemetry: Afib [id number] Family History: Unchanged from Admission Social History: Unchanged from Admission Past Medical History: Unchanged from Admission Objective Active Medications: Acetaminophen (Tylenol Supp*) 650 mg TX Q6H PRN PRN Reason: FEVER/PAIN Anastrozole (Arimidex (Nf)) 1 mg PO QAM [facility] Last Admin: 06/29/17 09:14 Dose: Not Given Bisacodyl (Dulcolax Supp*) 10 mg TX QPM PRN PRN Reason: CONSTIPATION Diltiazem HCl (Cardizem Cd Cap*) 180 mg PO DAILY [facility] Last Admin: 06/29/17 12:20 Dose: 180 mg Fluoxetine HCl (Prozac Cap*) 40 mg PO DAILY [facility] Last Admin: 06/29/17 09:14 Dose: 40 mg Melatonin (Melatonin (Nf)) 6 mg PO BEDTIME [facility] Last Admin: 06/29/17 01:35 Dose: 6 mg Metoprolol Succinate (Toprol Xl Tab*) 25 mg PO DAILY [facility] Last Admin: 06/29/17 09:14 Dose: 25 mg Senna (Senokot Tab*) 2 tab PO BEDTIME [facility] Vital Signs 06/29/17 06/29/17 10:58 11:04 Temperature 97.6 F Pulse Rate 53 Respiratory 16 Rate Blood Pressure 123/88 150/83 (mmHg) O2 Sat by Pulse 95 Oximetry Oxygen Devices in Use Now: None Appearance: Well developed, well nourished female, lying in bed, NAD Eyes: No Scleral Icterus Ears/Nose/Mouth/Throat: Mucous Membranes Moist Neck: NL Appearance and Movements; NL JVP Respiratory: Symmetrical Chest Expansion and Respiratory Effort, Clear to Auscultation Cardiovascular: - - irregularly irregular rate/rhythm, tachycardic Abdominal: NL Sounds; No Tenderness; No Distention Extremities: No Edema, No Clubbing, Cyanosis Skin: No Rash or Ulcers Neurological: Alert and Oriented x 3, NL Muscle Strength and Tone Lines/Tubes/Other Access: Clean, Dry and Intact Peripheral IV Nutrition: Taking PO's Result Diagrams: 06/29/17 05:30 06/29/17 05:30 Additional Lab and Data: Lab Results 06/28/17 06/28/17 06/28/17 Range/Units 20:45 20:45 20:45 WBC 10.9 H (3.5-10.8) 10^3/ul RBC 4.67 (4.0-5.4) 10^6/ul Hgb 12.5 (12.0-16.0) g/dl Hct 38 (35-47) % MCV 82 (80-97) fL MCH 27 (27-31) pg MCHC 33 (31-36) g/dl RDW 17 H (10.5-15) % Plt Count 394 (150-450) 10^3/ul MPV 8 (7.4-10.4) um3 Neut % (Auto) 74.4 (38-83) % Lymph % (Auto) 15.2 L (25-47) % [place] % (Auto) 8.2 (1-9) % Eos % (Auto) 1.5 (0-6) % Baso % (Auto) 0.7 (0-2) % Absolute Neuts (auto) 8.1 H (1.5-7.7) 10^3/ul Absolute Lymphs (auto) 1.7 (1.0-4.8) 10^3/ul Absolute Monos (auto) 0.9 H (0-0.8) 10^3/ul Absolute Eos (auto) 0.2 (0-0.6) 10^3/ul Absolute Basos (auto) 0.1 (0-0.2) 10^3/ul Absolute Nucleated RBC 0 10^3/ul Nucleated RBC % 0 INR (Anticoag Therapy) 3.49 H (0.89-1.11) APTT 41.4 H (26.0-36.3) seconds Sodium 131 L (133-145) mmol/L Potassium 4.1 (3.5-5.0) mmol/L Chloride 101 (101-111) mmol/L Carbon Dioxide 21 L (22-32) mmol/L Anion Gap 9 (2-11) mmol/L BUN 31 H (6-24) mg/dL Creatinine 1.01 H (0.51-0.95) mg/dL Est GFR ( Amer) 66.4 (>60) Est GFR (Non-Af Amer) 51.6 (>60) BUN/Creatinine Ratio 30.7 H (8-20) Glucose 122 H (70-100) mg/dL Lactic Acid (0.5-2.0) mmol/L Calcium 9.3 (8.6-10.3) mg/dL Magnesium 2.1 (1.9-2.7) mg/dL Total Bilirubin 0.60 (0.2-1.0) mg/dL AST 34 (13-39) U/L ALT 27 (7-52) U/L Alkaline Phosphatase 58 (34-104) U/L Total Creatine Kinase 45 (10-223) U/L CK-MB (CK-2) 2.5 (0.6-6.3) ng/mL Troponin I 0.06 H* (<0.04) ng/mL B-Natriuretic Peptide ( - 100) pg/mL Total Protein 7.5 (6.4-8.9) g/dL Albumin 3.7 (3.2-5.2) g/dL Globulin 3.8 (2-4) g/dL Albumin/Globulin Ratio 1.0 (1-3) TSH 9.16 H (0.34-5.60) mcIU/mL Urine Color Urine Appearance Urine pH (5-9) Ur Specific [place] (1.010-1.030) Urine Protein (Negative) Urine Ketones (Negative) Urine Blood (Negative) Urine Nitrate (Negative) Urine Bilirubin (Negative) Urine Urobilinogen (Negative) Ur Leukocyte Esterase (Negative) Urine WBC (Auto) (Absent) Urine RBC (Auto) (Absent) Ur Squamous Epith Cells (Absent) Urine Bacteria (Absent) Urine Glucose (Negative) Urine Ascorbic Acid (Negative) 06/28/17 06/28/17 06/29/17 Range/Units 20:45 20:45 00:37 WBC (3.5-10.8) 10^3/ul RBC (4.0-5.4) 10^6/ul Hgb (12.0-16.0) g/dl Hct (35-47) % MCV (80-97) fL MCH (27-31) pg MCHC (31-36) g/dl RDW (10.5-15) % Plt Count (150-450) 10^3/ul MPV (7.4-10.4) um3 Neut % (Auto) (38-83) % Lymph % (Auto) (25-47) % [place] % (Auto) (1-9) % Eos % (Auto) (0-6) % Baso % (Auto) (0-2) % Absolute Neuts (auto) (1.5-7.7) 10^3/ul Absolute Lymphs (auto) (1.0-4.8) 10^3/ul Absolute Monos (auto) (0-0.8) 10^3/ul Absolute Eos (auto) (0-0.6) 10^3/ul Absolute Basos (auto) (0-0.2) 10^3/ul Absolute Nucleated RBC 10^3/ul Nucleated RBC % INR (Anticoag Therapy) (0.89-1.11) APTT (26.0-36.3) seconds Sodium (133-145) mmol/L Potassium (3.5-5.0) mmol/L Chloride (101-111) mmol/L Carbon Dioxide (22-32) mmol/L Anion Gap (2-11) mmol/L BUN (6-24) mg/dL Creatinine (0.51-0.95) mg/dL Est GFR ( Amer) (>60) Est GFR (Non-Af Amer) (>60) BUN/Creatinine Ratio (8-20) Glucose (70-100) mg/dL Lactic Acid 1.3 (0.5-2.0) mmol/L Calcium (8.6-10.3) mg/dL Magnesium (1.9-2.7) mg/dL Total Bilirubin (0.2-1.0) mg/dL AST (13-39) U/L ALT (7-52) U/L Alkaline Phosphatase (34-104) U/L Total Creatine Kinase (10-223) U/L CK-MB (CK-2) (0.6-6.3) ng/mL Troponin I 0.06 H* (<0.04) ng/mL B-Natriuretic Peptide 1536 H ( - 100) pg/mL Total Protein (6.4-8.9) g/dL Albumin (3.2-5.2) g/dL Globulin (2-4) g/dL Albumin/Globulin Ratio (1-3) TSH (0.34-5.60) mcIU/mL Urine Color Urine Appearance Urine pH (5-9) Ur Specific [place] (1.010-1.030) Urine Protein (Negative) Urine Ketones (Negative) Urine Blood (Negative) Urine Nitrate (Negative) Urine Bilirubin (Negative) Urine Urobilinogen (Negative) Ur Leukocyte Esterase (Negative) Urine WBC (Auto) (Absent) Urine RBC (Auto) (Absent) Ur Squamous Epith Cells (Absent) Urine Bacteria (Absent) Urine Glucose (Negative) Urine Ascorbic Acid (Negative) 06/29/17 06/29/17 06/29/17 Range/Units 05:30 05:30 05:30 WBC 9.0 (3.5-10.8) 10^3/ul RBC 4.49 (4.0-5.4) 10^6/ul Hgb 12.3 (12.0-16.0) g/dl Hct 37 (35-47) % MCV 83 (80-97) fL MCH 27 (27-31) pg MCHC 33 (31-36) g/dl RDW 17 H (10.5-15) % Plt Count 346 (150-450) 10^3/ul MPV 8 (7.4-10.4) um3 Neut % (Auto) (38-83) % Lymph % (Auto) (25-47) % [place] % (Auto) (1-9) % Eos % (Auto) (0-6) % Baso % (Auto) (0-2) % Absolute Neuts (auto) (1.5-7.7) 10^3/ul Absolute Lymphs (auto) (1.0-4.8) 10^3/ul Absolute Monos (auto) (0-0.8) 10^3/ul Absolute Eos (auto) (0-0.6) 10^3/ul Absolute Basos (auto) (0-0.2) 10^3/ul Absolute Nucleated RBC 10^3/ul Nucleated RBC % INR (Anticoag Therapy) 3.50 H (0.89-1.11) APTT (26.0-36.3) seconds Sodium 132 L (133-145) mmol/L Potassium 4.2 (3.5-5.0) mmol/L Chloride 101 (101-111) mmol/L Carbon Dioxide 23 (22-32) mmol/L Anion Gap 8 (2-11) mmol/L BUN 31 H (6-24) mg/dL Creatinine 0.96 H (0.51-0.95) mg/dL Est GFR ( Amer) 70.4 (>60) Est GFR (Non-Af Amer) 54.7 (>60) BUN/Creatinine Ratio 32.3 H (8-20) Glucose 122 H (70-100) mg/dL Lactic Acid (0.5-2.0) mmol/L Calcium 9.0 (8.6-10.3) mg/dL Magnesium (1.9-2.7) mg/dL Total Bilirubin (0.2-1.0) mg/dL AST (13-39) U/L ALT (7-52) U/L Alkaline Phosphatase (34-104) U/L Total Creatine Kinase (10-223) U/L CK-MB (CK-2) (0.6-6.3) ng/mL Troponin I 0.05 H* (<0.04) ng/mL B-Natriuretic Peptide ( - 100) pg/mL Total Protein (6.4-8.9) g/dL Albumin (3.2-5.2) g/dL Globulin (2-4) g/dL Albumin/Globulin Ratio (1-3) TSH (0.34-5.60) mcIU/mL Urine Color Urine Appearance Urine pH (5-9) Ur Specific [place] (1.010-1.030) Urine Protein (Negative) Urine Ketones (Negative) Urine Blood (Negative) Urine Nitrate (Negative) Urine Bilirubin (Negative) Urine Urobilinogen (Negative) Ur Leukocyte Esterase (Negative) Urine WBC (Auto) (Absent) Urine RBC (Auto) (Absent) Ur Squamous Epith Cells (Absent) Urine Bacteria (Absent) Urine Glucose (Negative) Urine Ascorbic Acid (Negative) 06/29/17 Range/Units 07:10 WBC (3.5-10.8) 10^3/ul RBC (4.0-5.4) 10^6/ul Hgb (12.0-16.0) g/dl Hct (35-47) % MCV (80-97) fL MCH (27-31) pg MCHC (31-36) g/dl RDW (10.5-15) % Plt Count (150-450) 10^3/ul MPV (7.4-10.4) um3 Neut % (Auto) (38-83) % Lymph % (Auto) (25-47) % [place] % (Auto) (1-9) % Eos % (Auto) (0-6) % Baso % (Auto) (0-2) % Absolute Neuts (auto) (1.5-7.7) 10^3/ul Absolute Lymphs (auto) (1.0-4.8) 10^3/ul Absolute Monos (auto) (0-0.8) 10^3/ul Absolute Eos (auto) (0-0.6) 10^3/ul Absolute Basos (auto) (0-0.2) 10^3/ul Absolute Nucleated RBC 10^3/ul Nucleated RBC % INR (Anticoag Therapy) (0.89-1.11) APTT (26.0-36.3) seconds Sodium (133-145) mmol/L Potassium (3.5-5.0) mmol/L Chloride (101-111) mmol/L Carbon Dioxide (22-32) mmol/L Anion Gap (2-11) mmol/L BUN (6-24) mg/dL Creatinine (0.51-0.95) mg/dL Est GFR ( Amer) (>60) Est GFR (Non-Af Amer) (>60) BUN/Creatinine Ratio (8-20) Glucose (70-100) mg/dL Lactic Acid (0.5-2.0) mmol/L Calcium (8.6-10.3) mg/dL Magnesium (1.9-2.7) mg/dL Total Bilirubin (0.2-1.0) mg/dL AST (13-39) U/L ALT (7-52) U/L Alkaline Phosphatase (34-104) U/L Total Creatine Kinase (10-223) U/L CK-MB (CK-2) (0.6-6.3) ng/mL Troponin I (<0.04) ng/mL B-Natriuretic Peptide ( - 100) pg/mL Total Protein (6.4-8.9) g/dL Albumin (3.2-5.2) g/dL Globulin (2-4) g/dL Albumin/Globulin Ratio (1-3) TSH (0.34-5.60) mcIU/mL Urine Color [place] Urine Appearance Cloudy Urine pH 5.0 (5-9) Ur Specific [place] 1.029 (1.010-1.030) Urine Protein 2+(100 mg/dl) H (Negative) Urine Ketones Trace H (Negative) Urine Blood 2+ H (Negative) Urine Nitrate Negative (Negative) Urine Bilirubin Negative (Negative) Urine Urobilinogen Negative (Negative) Ur Leukocyte Esterase 2+ H (Negative) Urine WBC (Auto) 3+(>20/hpf) H (Absent) Urine RBC (Auto) Absent (Absent) Ur Squamous Epith Cells Present H (Absent) Urine Bacteria 3+ H (Absent) Urine Glucose Negative (Negative) Urine Ascorbic Acid * H (Negative) Assess/Plan/Problems-Billing Assessment: Ms. Law is an 87 yo female with a PMH of PAF, BrCa, pulm HTN, HTN, and orthostasis who presented to the ED on 06/28 with concern for afib with RVR. - Patient Problems (1) Atrial fibrillation Priority: High Code(s): I48.91 - UNSPECIFIED ATRIAL FIBRILLATION Comment: With RVR Unsure what triggered RVR Rate better controlled with diltiazem gtt Restart PO diltiazem and discontinue gtt Utilize prn metoprolol for sustained HR >/= 120s INR slightly elevated, will hold warfarin. (2) Elevated troponin Code(s): R74.8 - ABNORMAL LEVELS OF OTHER SERUM ENZYMES Comment: Suspect demand ischemia secondary to afib with RVR Patient denies CP, SOB, or other concern symptoms (3) Acute kidney injury Code(s): N17.9 - ACUTE KIDNEY FAILURE, UNSPECIFIED Comment: Likely secondary to poor perfusion from RVR Now improved Continue to trend (4) Hypertension Code(s): I10 - ESSENTIAL (PRIMARY) HYPERTENSION Comment: Mostly normotensive Continue diltiazem, metoprolol (5) DVT prophylaxis Comment: Warfarin Hold tonight's dose as INR is supratherapeutic (6) DNR (do not resuscitate) Status and Disposition: Inpatient admit. Dc to home when medically stable.
[2017-06-29] MEDS ORDERED: Metoprolol Tartrate IV* 1 MG/ML 5 ML VIAL IV PRN (16:17)
[2017-06-29] MEDS: Senna TAB PO SCH (21:43)
[2017-06-30 05:27] LABS: Hematocrit 39 % (35-47); Hemoglobin 12.6 g/dl (12.0-16.0); Mean Corpuscular HGB Conc 33 g/dl (31-36); Mean Corpuscular Hemoglobin 27 pg (27-31); Mean Corpuscular Volume 83 fL (80-97); Mean Platelet Volume 8 um3 (7.4-10.4); Red Blood Count 4.69 10^6/ul (4.0-5.4); Red Cell Distribution Width 17 % (10.5-15); White Blood Count 8.9 10^3/ul (3.5-10.8)
[2017-06-30 05:36] LABS: BUN/Creatinine Ratio 30.4 (8-20); Calcium 9.4 mg/dL (8.6-10.3); EGFR African American 51.9 (>60); EGFR Non-African American 40.4 (>60); Potassium 4.1 mmol/L (3.5-5.0)
[2017-06-30] MEDS ORDERED: Ondansetron INJ* 2 MG/ML VIAL IV PRN (07:51)
[2017-06-30] MEDS: Metoprolol Succinate XL TAB* 25 MG PO SCH (08:11)
[2017-06-30] MEDS: FLUoxetine CAP* 20 MG PO SCH (08:11)
[2017-06-30] MEDS: Diltiazem CD CAP* 180 MG PO SCH (08:11)
[2017-06-30] MEDS: CMCS: Anastrozole (NF) 1 MG TAB PO SCH (08:12)
--- NOTE | 2017-06-30 10:27 | PN ---
Subjective Date of Service: 06/30/17 Interval History: Patient states that she did not sleep well overnight due to stomach discomfort, nausea and the anxiety of being in the hospital. Patient states she was feeling palpitations with lightheadedness and SOB this morning after this had improved yesterday. This corresponds with an increased HR via telemetry. Patient states that she was sweating profusely overnight and has been feeling generally weak without focality. Patient's urine from yesterday was suspicious for UTI. Patient states she used to have frequent UTIs before going to [facility], but has not had one recently and takes cranberry, an unknown supplement, and premarin vaginal cream twice weekly for UTI prophylaxis. Patient denies any dysuria, urinary frequency, hematuria, or urinary incontinence. Family History: Unchanged from Admission Social History: Unchanged from Admission Past Medical History: Unchanged from Admission Objective Active Medications: Acetaminophen (Tylenol Supp*) [address] Q6H PRN PRN Reason: FEVER/PAIN Anastrozole (Arimidex (Nf)) 1 mg PO QAM [facility] Last Admin: 06/30/17 08:12 Dose: 1 mg Bisacodyl (Dulcolax Supp*) [address] QPM PRN PRN Reason: CONSTIPATION Diltiazem HCl (Cardizem Cd Cap*) 180 mg PO DAILY [facility] Last Admin: 06/30/17 08:11 Dose: 180 mg Fluoxetine HCl (Prozac Cap*) 40 mg PO DAILY [facility] Last Admin: 06/30/17 08:11 Dose: 40 mg Ceftriaxone Sodium 1,000 mg/ (Sodium Chloride) 50 mls @ 200 mls/hr IVPB Q24H [facility] Melatonin (Melatonin (Nf)) 6 mg PO BEDTIME [facility] Last Admin: 06/29/17 21:45 Dose: 6 mg Metoprolol Succinate (Toprol Xl Tab*) 25 mg PO DAILY [facility] Last Admin: 06/30/17 08:11 Dose: 25 mg Metoprolol Tartrate (Lopressor Iv*) 5 mg IV Q6H PRN PRN Reason: HEART RATE/PULSE GREATER THAN: Ondansetron HCl (Zofran Inj*) 4 mg IV Q6H PRN PRN Reason: NAUSEA Last Admin: 06/30/17 08:11 Dose: 4 mg Senna (Senokot Tab*) 2 tab PO BEDTIME [facility] Last Admin: 06/29/17 21:43 Dose: 2 tab Vital Signs 06/29/17 06/29/17 06/29/17 10:58 11:04 13:05 Temperature 97.6 F Pulse Rate 53 Respiratory 16 Rate Blood Pressure 123/88 150/83 132/89 (mmHg) O2 Sat by Pulse 95 Oximetry 06/29/17 06/29/17 06/29/17 15:04 15:46 19:38 Temperature 97.8 F 97.6 F Pulse Rate 35 54 Respiratory 20 18 Rate Blood Pressure 148/83 103/84 124/69 (mmHg) O2 Sat by Pulse 94 94 Oximetry 06/29/17 06/30/17 06/30/17 20:00 00:02 03:27 Temperature 97.9 F 97.8 F Pulse Rate 142 176 Respiratory 20 20 20 Rate Blood Pressure 139/95 136/93 (mmHg) O2 Sat by Pulse 95 95 Oximetry 06/30/17 06/30/17 07:42 08:17 Temperature 98.2 F Pulse Rate 135 Respiratory 18 18 Rate Blood Pressure 135/108 (mmHg) O2 Sat by Pulse 95 Oximetry Oxygen Devices in Use Now: None Eyes: No Scleral Icterus, PERRLA Ears/Nose/Mouth/Throat: NL Teeth, Lips, Gums, Clear Oropharnyx, Mucous Membranes Moist Neck: NL Appearance and Movements; NL JVP, Trachea Midline Respiratory: Symmetrical Chest Expansion and Respiratory Effort, Clear to Auscultation Cardiovascular: No Edema, - - Irregularly irregular rhythm. Rate around 100. Grade 2/6 holosystolic murmur heard best at the LLSB. Radial, PT, DP pulses 2+ B /L. Abdominal: NL Sounds; No Tenderness; No Distention, No Hepatosplenomegaly, - - No suprapubic or CVA tenderness. Lymphatic: No Cervical Adenopathy Skin: No Rash or Ulcers, - - No serious bruising noted. Neurological: Alert and Oriented x 3, NL Muscle Strength and Tone, - - Slight facial droop on R side. CNII-XII otherwise intact. Lines/Tubes/Other Access: Clean, Dry and Intact Peripheral IV Result Diagrams: 06/30/17 04:43 06/30/17 04:43 Additional Lab and Data: Lab Results 06/28/17 06/28/17 06/28/17 Range/Units 20:45 20:45 20:45 WBC 10.9 H (3.5-10.8) 10^3/ul RBC 4.67 (4.0-5.4) 10^6/ul Hgb 12.5 (12.0-16.0) g/dl Hct 38 (35-47) % MCV 82 (80-97) fL MCH 27 (27-31) pg MCHC 33 (31-36) g/dl RDW 17 H (10.5-15) % Plt Count 394 (150-450) 10^3/ul MPV 8 (7.4-10.4) um3 Neut % (Auto) 74.4 (38-83) % Lymph % (Auto) 15.2 L (25-47) % [place] % (Auto) 8.2 (1-9) % Eos % (Auto) 1.5 (0-6) % Baso % (Auto) 0.7 (0-2) % Absolute Neuts (auto) 8.1 H (1.5-7.7) 10^3/ul Absolute Lymphs (auto) 1.7 (1.0-4.8) 10^3/ul Absolute Monos (auto) 0.9 H (0-0.8) 10^3/ul Absolute Eos (auto) 0.2 (0-0.6) 10^3/ul Absolute Basos (auto) 0.1 (0-0.2) 10^3/ul Absolute Nucleated RBC 0 10^3/ul Nucleated RBC % 0 INR (Anticoag Therapy) 3.49 H (0.89-1.11) APTT 41.4 H (26.0-36.3) seconds Sodium 131 L (133-145) mmol/L Potassium 4.1 (3.5-5.0) mmol/L Chloride 101 (101-111) mmol/L Carbon Dioxide 21 L (22-32) mmol/L Anion Gap 9 (2-11) mmol/L BUN 31 H (6-24) mg/dL Creatinine 1.01 H (0.51-0.95) mg/dL Est GFR ( Amer) 66.4 (>60) Est GFR (Non-Af Amer) 51.6 (>60) BUN/Creatinine Ratio 30.7 H (8-20) Glucose 122 H (70-100) mg/dL Lactic Acid (0.5-2.0) mmol/L Calcium 9.3 (8.6-10.3) mg/dL Magnesium 2.1 (1.9-2.7) mg/dL Total Bilirubin 0.60 (0.2-1.0) mg/dL AST 34 (13-39) U/L ALT 27 (7-52) U/L Alkaline Phosphatase 58 (34-104) U/L Total Creatine Kinase 45 (10-223) U/L CK-MB (CK-2) 2.5 (0.6-6.3) ng/mL Troponin I 0.06 H* (<0.04) ng/mL B-Natriuretic Peptide ( - 100) pg/mL Total Protein 7.5 (6.4-8.9) g/dL Albumin 3.7 (3.2-5.2) g/dL Globulin 3.8 (2-4) g/dL Albumin/Globulin Ratio 1.0 (1-3) TSH 9.16 H (0.34-5.60) mcIU/mL Urine Color Urine Appearance Urine pH (5-9) Ur Specific [place] (1.010-1.030) Urine Protein (Negative) Urine Ketones (Negative) Urine Blood (Negative) Urine Nitrate (Negative) Urine Bilirubin (Negative) Urine Urobilinogen (Negative) Ur Leukocyte Esterase (Negative) Urine WBC (Auto) (Absent) Urine RBC (Auto) (Absent) Ur Squamous Epith Cells (Absent) Urine Bacteria (Absent) Urine Glucose (Negative) Urine Ascorbic Acid (Negative) 06/28/17 06/28/17 06/29/17 Range/Units 20:45 20:45 00:37 WBC (3.5-10.8) 10^3/ul RBC (4.0-5.4) 10^6/ul Hgb (12.0-16.0) g/dl Hct (35-47) % MCV (80-97) fL MCH (27-31) pg MCHC (31-36) g/dl RDW (10.5-15) % Plt Count (150-450) 10^3/ul MPV (7.4-10.4) um3 Neut % (Auto) (38-83) % Lymph % (Auto) (25-47) % [place] % (Auto) (1-9) % Eos % (Auto) (0-6) % Baso % (Auto) (0-2) % Absolute Neuts (auto) (1.5-7.7) 10^3/ul Absolute Lymphs (auto) (1.0-4.8) 10^3/ul Absolute Monos (auto) (0-0.8) 10^3/ul Absolute Eos (auto) (0-0.6) 10^3/ul Absolute Basos (auto) (0-0.2) 10^3/ul Absolute Nucleated RBC 10^3/ul Nucleated RBC % INR (Anticoag Therapy) (0.89-1.11) APTT (26.0-36.3) seconds Sodium (133-145) mmol/L Potassium (3.5-5.0) mmol/L Chloride (101-111) mmol/L Carbon Dioxide (22-32) mmol/L Anion Gap (2-11) mmol/L BUN (6-24) mg/dL Creatinine (0.51-0.95) mg/dL Est GFR ( Amer) (>60) Est GFR (Non-Af Amer) (>60) BUN/Creatinine Ratio (8-20) Glucose (70-100) mg/dL Lactic Acid 1.3 (0.5-2.0) mmol/L Calcium (8.6-10.3) mg/dL Magnesium (1.9-2.7) mg/dL Total Bilirubin (0.2-1.0) mg/dL AST (13-39) U/L ALT (7-52) U/L Alkaline Phosphatase (34-104) U/L Total Creatine Kinase (10-223) U/L CK-MB (CK-2) (0.6-6.3) ng/mL Troponin I 0.06 H* (<0.04) ng/mL B-Natriuretic Peptide 1536 H ( - 100) pg/mL Total Protein (6.4-8.9) g/dL Albumin (3.2-5.2) g/dL Globulin (2-4) g/dL Albumin/Globulin Ratio (1-3) TSH (0.34-5.60) mcIU/mL Urine Color Urine Appearance Urine pH (5-9) Ur Specific [place] (1.010-1.030) Urine Protein (Negative) Urine Ketones (Negative) Urine Blood (Negative) Urine Nitrate (Negative) Urine Bilirubin (Negative) Urine Urobilinogen (Negative) Ur Leukocyte Esterase (Negative) Urine WBC (Auto) (Absent) Urine RBC (Auto) (Absent) Ur Squamous Epith Cells (Absent) Urine Bacteria (Absent) Urine Glucose (Negative) Urine Ascorbic Acid (Negative) 06/29/17 06/29/17 06/29/17 Range/Units 05:30 05:30 05:30 WBC 9.0 (3.5-10.8) 10^3/ul RBC 4.49 (4.0-5.4) 10^6/ul Hgb 12.3 (12.0-16.0) g/dl Hct 37 (35-47) % MCV 83 (80-97) fL MCH 27 (27-31) pg MCHC 33 (31-36) g/dl RDW 17 H (10.5-15) % Plt Count 346 (150-450) 10^3/ul MPV 8 (7.4-10.4) um3 Neut % (Auto) (38-83) % Lymph % (Auto) (25-47) % [place] % (Auto) (1-9) % Eos % (Auto) (0-6) % Baso % (Auto) (0-2) % Absolute Neuts (auto) (1.5-7.7) 10^3/ul Absolute Lymphs (auto) (1.0-4.8) 10^3/ul Absolute Monos (auto) (0-0.8) 10^3/ul Absolute Eos (auto) (0-0.6) 10^3/ul Absolute Basos (auto) (0-0.2) 10^3/ul Absolute Nucleated RBC 10^3/ul Nucleated RBC % INR (Anticoag Therapy) 3.50 H (0.89-1.11) APTT (26.0-36.3) seconds Sodium 132 L (133-145) mmol/L Potassium 4.2 (3.5-5.0) mmol/L Chloride 101 (101-111) mmol/L Carbon Dioxide 23 (22-32) mmol/L Anion Gap 8 (2-11) mmol/L BUN 31 H (6-24) mg/dL Creatinine 0.96 H (0.51-0.95) mg/dL Est GFR ( Amer) 70.4 (>60) Est GFR (Non-Af Amer) 54.7 (>60) BUN/Creatinine Ratio 32.3 H (8-20) Glucose 122 H (70-100) mg/dL Lactic Acid (0.5-2.0) mmol/L Calcium 9.0 (8.6-10.3) mg/dL Magnesium (1.9-2.7) mg/dL Total Bilirubin (0.2-1.0) mg/dL AST (13-39) U/L ALT (7-52) U/L Alkaline Phosphatase (34-104) U/L Total Creatine Kinase (10-223) U/L CK-MB (CK-2) (0.6-6.3) ng/mL Troponin I 0.05 H* (<0.04) ng/mL B-Natriuretic Peptide ( - 100) pg/mL Total Protein (6.4-8.9) g/dL Albumin (3.2-5.2) g/dL Globulin (2-4) g/dL Albumin/Globulin Ratio (1-3) TSH (0.34-5.60) mcIU/mL Urine Color Urine Appearance Urine pH (5-9) Ur Specific [place] (1.010-1.030) Urine Protein (Negative) Urine Ketones (Negative) Urine Blood (Negative) Urine Nitrate (Negative) Urine Bilirubin (Negative) Urine Urobilinogen (Negative) Ur Leukocyte Esterase (Negative) Urine WBC (Auto) (Absent) Urine RBC (Auto) (Absent) Ur Squamous Epith Cells (Absent) Urine Bacteria (Absent) Urine Glucose (Negative) Urine Ascorbic Acid (Negative) 06/29/17 Range/Units 07:10 WBC (3.5-10.8) 10^3/ul RBC (4.0-5.4) 10^6/ul Hgb (12.0-16.0) g/dl Hct (35-47) % MCV (80-97) fL MCH (27-31) pg MCHC (31-36) g/dl RDW (10.5-15) % Plt Count (150-450) 10^3/ul MPV (7.4-10.4) um3 Neut % (Auto) (38-83) % Lymph % (Auto) (25-47) % [place] % (Auto) (1-9) % Eos % (Auto) (0-6) % Baso % (Auto) (0-2) % Absolute Neuts (auto) (1.5-7.7) 10^3/ul Absolute Lymphs (auto) (1.0-4.8) 10^3/ul Absolute Monos (auto) (0-0.8) 10^3/ul Absolute Eos (auto) (0-0.6) 10^3/ul Absolute Basos (auto) (0-0.2) 10^3/ul Absolute Nucleated RBC 10^3/ul Nucleated RBC % INR (Anticoag Therapy) (0.89-1.11) APTT (26.0-36.3) seconds Sodium (133-145) mmol/L Potassium (3.5-5.0) mmol/L Chloride (101-111) mmol/L Carbon Dioxide (22-32) mmol/L Anion Gap (2-11) mmol/L BUN (6-24) mg/dL Creatinine (0.51-0.95) mg/dL Est GFR ( Amer) (>60) Est GFR (Non-Af Amer) (>60) BUN/Creatinine Ratio (8-20) Glucose (70-100) mg/dL Lactic Acid (0.5-2.0) mmol/L Calcium (8.6-10.3) mg/dL Magnesium (1.9-2.7) mg/dL Total Bilirubin (0.2-1.0) mg/dL AST (13-39) U/L ALT (7-52) U/L Alkaline Phosphatase (34-104) U/L Total Creatine Kinase (10-223) U/L CK-MB (CK-2) (0.6-6.3) ng/mL Troponin I (<0.04) ng/mL B-Natriuretic Peptide ( - 100) pg/mL Total Protein (6.4-8.9) g/dL Albumin (3.2-5.2) g/dL Globulin (2-4) g/dL Albumin/Globulin Ratio (1-3) TSH (0.34-5.60) mcIU/mL Urine Color [place] Urine Appearance Cloudy Urine pH 5.0 (5-9) Ur Specific [place] 1.029 (1.010-1.030) Urine Protein 2+(100 mg/dl) H (Negative) Urine Ketones Trace H (Negative) Urine Blood 2+ H (Negative) Urine Nitrate Negative (Negative) Urine Bilirubin Negative (Negative) Urine Urobilinogen Negative (Negative) Ur Leukocyte Esterase 2+ H (Negative) Urine WBC (Auto) 3+(>20/hpf) H (Absent) Urine RBC (Auto) Absent (Absent) Ur Squamous Epith Cells Present H (Absent) Urine Bacteria 3+ H (Absent) Urine Glucose Negative (Negative) Urine Ascorbic Acid * H (Negative) 06/28/17 06/28/17 06/28/17 20:45 20:45 20:45 WBC 10.9 H RBC 4.67 Hgb 12.5 Hct 38 MCV 82 MCH 27 MCHC 33 RDW 17 H Plt Count 394 MPV 8 Neut % (Auto) 74.4 Lymph % (Auto) 15.2 L [place] % (Auto) 8.2 Eos % (Auto) 1.5 Baso % (Auto) 0.7 Absolute Neuts (auto) 8.1 H Absolute Lymphs (auto) 1.7 Absolute Monos (auto) 0.9 H Absolute Eos (auto) 0.2 Absolute Basos (auto) 0.1 Absolute Nucleated RBC 0 Nucleated RBC % 0 INR (Anticoag Therapy) 3.49 H APTT 41.4 H Sodium 131 L Potassium 4.1 Chloride 101 Carbon Dioxide 21 L Anion Gap 9 BUN 31 H Creatinine 1.01 H Est GFR ( Amer) 66.4 Est GFR (Non-Af Amer) 51.6 BUN/Creatinine Ratio 30.7 H Glucose 122 H Lactic Acid Calcium 9.3 Magnesium 2.1 Total Bilirubin 0.60 AST 34 ALT 27 Alkaline Phosphatase 58 Total Creatine Kinase 45 CK-MB (CK-2) 2.5 Troponin I 0.06 H* B-Natriuretic Peptide Total Protein 7.5 Albumin 3.7 Globulin 3.8 Albumin/Globulin Ratio 1.0 TSH 9.16 H Urine Color Urine Appearance Urine pH Ur Specific [place] Urine Protein Urine Ketones Urine Blood Urine Nitrate Urine Bilirubin Urine Urobilinogen Ur Leukocyte Esterase Urine WBC (Auto) Urine RBC (Auto) Ur Squamous Epith Cells Urine Bacteria Urine Glucose Urine Ascorbic Acid 06/28/17 06/28/17 06/29/17 20:45 20:45 00:37 WBC RBC Hgb Hct MCV MCH MCHC RDW Plt Count MPV Neut % (Auto) Lymph % (Auto) [place] % (Auto) Eos % (Auto) Baso % (Auto) Absolute Neuts (auto) Absolute Lymphs (auto) Absolute Monos (auto) Absolute Eos (auto) Absolute Basos (auto) Absolute Nucleated RBC Nucleated RBC % INR (Anticoag Therapy) APTT Sodium Potassium Chloride Carbon Dioxide Anion Gap BUN Creatinine Est GFR ( Amer) Est GFR (Non-Af Amer) BUN/Creatinine Ratio Glucose Lactic Acid 1.3 Calcium Magnesium Total Bilirubin AST ALT Alkaline Phosphatase Total Creatine Kinase CK-MB (CK-2) Troponin I 0.06 H* B-Natriuretic Peptide 1536 H Total Protein Albumin Globulin Albumin/Globulin Ratio TSH Urine Color Urine Appearance Urine pH Ur Specific [place] Urine Protein Urine Ketones Urine Blood Urine Nitrate Urine Bilirubin Urine Urobilinogen Ur Leukocyte Esterase Urine WBC (Auto) Urine RBC (Auto) Ur Squamous Epith Cells Urine Bacteria Urine Glucose Urine Ascorbic Acid 06/29/17 06/29/17 06/29/17 05:30 05:30 05:30 WBC 9.0 RBC 4.49 Hgb 12.3 Hct 37 MCV 83 MCH 27 MCHC 33 RDW 17 H Plt Count 346 MPV 8 Neut % (Auto) Lymph % (Auto) [place] % (Auto) Eos % (Auto) Baso % (Auto) Absolute Neuts (auto) Absolute Lymphs (auto) Absolute Monos (auto) Absolute Eos (auto) Absolute Basos (auto) Absolute Nucleated RBC Nucleated RBC % INR (Anticoag Therapy) 3.50 H APTT Sodium 132 L Potassium 4.2 Chloride 101 Carbon Dioxide 23 Anion Gap 8 BUN 31 H Creatinine 0.96 H Est GFR ( Amer) 70.4 Est GFR (Non-Af Amer) 54.7 BUN/Creatinine Ratio 32.3 H Glucose 122 H Lactic Acid Calcium 9.0 Magnesium Total Bilirubin AST ALT Alkaline Phosphatase Total Creatine Kinase CK-MB (CK-2) Troponin I 0.05 H* B-Natriuretic Peptide Total Protein Albumin Globulin Albumin/Globulin Ratio TSH Urine Color Urine Appearance Urine pH Ur Specific [place] Urine Protein Urine Ketones Urine Blood Urine Nitrate Urine Bilirubin Urine Urobilinogen Ur Leukocyte Esterase Urine WBC (Auto) Urine RBC (Auto) Ur Squamous Epith Cells Urine Bacteria Urine Glucose Urine Ascorbic Acid 06/29/17 06/30/17 06/30/17 07:10 04:43 04:43 WBC 8.9 RBC 4.69 Hgb 12.6 Hct 39 MCV 83 MCH 27 MCHC 33 RDW 17 H Plt Count 363 MPV 8 Neut % (Auto) 72.2 Lymph % (Auto) 14.2 L [place] % (Auto) 11.1 H Eos % (Auto) 1.9 Baso % (Auto) 0.6 Absolute Neuts (auto) 6.4 Absolute Lymphs (auto) 1.3 Absolute Monos (auto) 1.0 H Absolute Eos (auto) 0.2 Absolute Basos (auto) 0 Absolute Nucleated RBC 0.01 Nucleated RBC % 0.1 INR (Anticoag Therapy) 4.14 H APTT Sodium Potassium Chloride Carbon Dioxide Anion Gap BUN Creatinine Est GFR ( Amer) Est GFR (Non-Af Amer) BUN/Creatinine Ratio Glucose Lactic Acid Calcium Magnesium Total Bilirubin AST ALT Alkaline Phosphatase Total Creatine Kinase CK-MB (CK-2) Troponin I B-Natriuretic Peptide Total Protein Albumin Globulin Albumin/Globulin Ratio TSH Urine Color [place] Urine Appearance Cloudy Urine pH 5.0 Ur Specific [place] 1.029 Urine Protein 2+(100 mg/dl) H Urine Ketones Trace H Urine Blood 2+ H Urine Nitrate Negative Urine Bilirubin Negative Urine Urobilinogen Negative Ur Leukocyte Esterase 2+ H Urine WBC (Auto) 3+(>20/hpf) H Urine RBC (Auto) Absent Ur Squamous Epith Cells Present H Urine Bacteria 3+ H Urine Glucose Negative Urine Ascorbic Acid * H 06/30/17 04:43 WBC RBC Hgb Hct MCV MCH MCHC RDW Plt Count MPV Neut % (Auto) Lymph % (Auto) [place] % (Auto) Eos % (Auto) Baso % (Auto) Absolute Neuts (auto) Absolute Lymphs (auto) Absolute Monos (auto) Absolute Eos (auto) Absolute Basos (auto) Absolute Nucleated RBC Nucleated RBC % INR (Anticoag Therapy) APTT Sodium 131 L Potassium 4.1 Chloride 99 L Carbon Dioxide 24 Anion Gap 8 BUN 38 H Creatinine 1.25 H Est GFR ( Amer) 51.9 Est GFR (Non-Af Amer) 40.4 BUN/Creatinine Ratio 30.4 H Glucose 123 H Lactic Acid Calcium 9.4 Magnesium Total Bilirubin AST ALT Alkaline Phosphatase Total Creatine Kinase CK-MB (CK-2) Troponin I B-Natriuretic Peptide Total Protein Albumin Globulin Albumin/Globulin Ratio TSH Urine Color Urine Appearance Urine pH Ur Specific [place] Urine Protein Urine Ketones Urine Blood Urine Nitrate Urine Bilirubin Urine Urobilinogen Ur Leukocyte Esterase Urine WBC (Auto) Urine RBC (Auto) Ur Squamous Epith Cells Urine Bacteria Urine Glucose Urine Ascorbic Acid Assess/Plan/Problems-Billing Assessment: Ms. Law is an 87 yo female with a PMH of PAF, BrCa, pulm HTN, HTN, and orthostasis who presented to the ED on 06/28 with concern for afib with RVR. - Patient Problems (1) Atrial fibrillation Current Visit: Yes Status: Chronic Priority: High Code(s): I48.91 - UNSPECIFIED ATRIAL FIBRILLATION SNOMED Code(s): 82055808 Comment: With RVR, increased back to 110s-140s overnight, currently controlled after morning meds. RVR probably related to UTI. Will hold off on increasing PO rate control medications until UTI cleared. Continue on Metoprolol and Cardizem Utilize prn metoprolol for sustained HR >/= 120s INR still supratherapeutic. Continue to hold warfarin. (2) Acute kidney injury Current Visit: Yes Status: Acute Code(s): N17.9 - ACUTE KIDNEY FAILURE, UNSPECIFIED SNOMED Code(s): 35796871 Comment: Likely secondary to poor perfusion from RVR Worsened again overnight, likely due to recurrence of increased HR. Continue to trend (3) Urinary tract infection Current Visit: Yes Status: Acute Comment: Culture pending, will treat empirically with Cefriaxone 1gm Q24hr. Zofran for nausea. Patient otherwise symptomatic. (4) Anxiety Current Visit: Yes Status: Chronic Code(s): F41.9 - ANXIETY DISORDER, UNSPECIFIED SNOMED Code(s): 14842954 Comment: Patient experiencing anxiety overnight. Related to being in the hospital. Patient on home Prozac for anxiety. Probably exacerbating tachycardia, prescribed Ativan .5mg IV PRN. (5) DVT prophylaxis Current Visit: No Status: Acute Code(s): [id number] - SNOMED Code(s): 803850047 Comment: Warfarin Hold tonight's dose as INR is supratherapeutic (6) DNR (do not resuscitate) Current Visit: No Status: Acute Status and Disposition: Inpatient admit. Dc to home when medically stable.
[2017-06-30] MEDS: cefTRIAXone VIAL(*) 1,000 MG in NS 0.9% 50 ML* 50 ML IVPB SCH (10:41)
[2017-06-30] MEDS: Senna TAB PO SCH (21:12)
[2017-06-30] MEDS: CMCS Melatonin (NF) 3 MG TAB PO SCH (21:16)
[2017-07-01] MEDS: Metoprolol Succinate XL TAB* 25 MG PO SCH (08:55)
[2017-07-01] MEDS: FLUoxetine CAP* 20 MG PO SCH (08:55)
[2017-07-01] MEDS: Diltiazem CD CAP* 180 MG PO SCH (08:55)
[2017-07-01] MEDS: CMCS: Anastrozole (NF) 1 MG TAB PO SCH (08:55)
[2017-07-01 10:15] LABS: Hematocrit 41 % (35-47); Hemoglobin 13.1 g/dl (12.0-16.0); Mean Corpuscular HGB Conc 32 g/dl (31-36); Mean Corpuscular Hemoglobin 27 pg (27-31); Mean Corpuscular Volume 84 fL (80-97); Mean Platelet Volume 8 um3 (7.4-10.4); Red Blood Count 4.87 10^6/ul (4.0-5.4); Red Cell Distribution Width 17 % (10.5-15); White Blood Count 10.7 10^3/ul (3.5-10.8)
[2017-07-01 10:17] LABS: Add Diff/Slide Review? Slide Review Added; Comments Flag Yes
[2017-07-01 10:30] LABS: Calcium 9.4 mg/dL (8.6-10.3); EGFR African American 49.2 (>60); EGFR Non-African American 38.2 (>60); Potassium 4.7 mmol/L (3.5-5.0)
[2017-07-01] MEDS: cefTRIAXone VIAL(*) 1,000 MG in NS 0.9% 50 ML* 50 ML IVPB SCH (11:13)
[2017-07-01] MEDS: NS 0.9% 1000 ML* 1,000 ML IV SCH ×2 (12:02→19:46)
--- NOTE | 2017-07-01 12:57 | PN ---
Subjective Date of Service: 07/01/17 Interval History: Patient denies any acute events overnight. Patient continues to feel fatigued and weak and states she doesn't feel any better than when she came into the hospital. Patient denies nausea and anxiety this morning. Patient denies CP, SOB , Abdominal pain and urinary symptoms. Patient concerned about her ability to walk at home without falling given how weak and fatigued she is. Family History: Unchanged from Admission Social History: Unchanged from Admission Past Medical History: Unchanged from Admission Objective Active Medications: Acetaminophen (Tylenol Supp*) 650 mg ND Q6H PRN PRN Reason: FEVER/PAIN Anastrozole (Arimidex (Nf)) 1 mg PO QAM [facility] Last Admin: 07/01/17 08:55 Dose: 1 mg Bisacodyl (Dulcolax Supp*) 10 mg ND QPM PRN PRN Reason: CONSTIPATION Diltiazem HCl (Cardizem Cd Cap*) 240 mg PO DAILY [facility] Fluoxetine HCl (Prozac Cap*) 40 mg PO DAILY [facility] Last Admin: 07/01/17 08:55 Dose: 40 mg Ceftriaxone Sodium 1,000 mg/ (Sodium Chloride) 50 mls @ 200 mls/hr IVPB Q24H [facility] Last Admin: 07/01/17 11:13 Dose: 200 mls/hr Sodium Chloride (Ns 0.9% 1000 Ml*) 1,000 mls @ 150 mls/hr IV PER RATE [facility] Last Admin: 07/01/17 12:02 Dose: 150 mls/hr Lorazepam (Ativan Inj*) 0.5 mg IV PUSH Q4H PRN PRN Reason: ANXIETY Melatonin (Melatonin (Nf)) 6 mg PO BEDTIME [facility] Last Admin: 06/30/17 21:16 Dose: 6 mg Metoprolol Succinate (Toprol Xl Tab*) 25 mg PO DAILY [facility] Last Admin: 07/01/17 08:55 Dose: 25 mg Metoprolol Tartrate (Lopressor Iv*) 5 mg IV Q6H PRN PRN Reason: HEART RATE/PULSE GREATER THAN: Last Admin: 07/01/17 08:36 Dose: 5 mg Ondansetron HCl (Zofran Inj*) 4 mg IV Q6H PRN PRN Reason: NAUSEA Last Admin: 06/30/17 08:11 Dose: 4 mg Senna (Senokot Tab*) 2 tab PO BEDTIME [facility] Last Admin: 06/30/17 21:12 Dose: 2 tab Vital Signs 06/30/17 06/30/17 06/30/17 15:40 19:09 21:20 Temperature 97.7 F 97.6 F Pulse Rate 105 55 Respiratory 20 22 20 Rate Blood Pressure 149/84 120/91 (mmHg) O2 Sat by Pulse 97 94 Oximetry 06/30/17 07/01/17 07/01/17 23:40 03:26 07:41 Temperature 97.8 F 97.6 F 97.3 F Pulse Rate 133 62 41 Respiratory 16 16 20 Rate Blood Pressure 132/90 152/108 123/106 (mmHg) O2 Sat by Pulse 94 94 89 Oximetry 07/01/17 07/01/17 07/01/17 08:26 08:34 10:57 Temperature 97.4 F 97.3 F Pulse Rate 136 36 Respiratory 16 20 18 Rate Blood Pressure 140/97 111/85 (mmHg) O2 Sat by Pulse 90 93 Oximetry Oxygen Devices in Use Now: None Appearance: Patient is an 87yo female who appears less than stated age who is sitting confortably in the chair in [facility]. Eyes: No Scleral Icterus, PERRLA Ears/Nose/Mouth/Throat: NL Teeth, Lips, Gums, Clear Oropharnyx, Mucous Membranes Moist Neck: NL Appearance and Movements; NL JVP, Trachea Midline Respiratory: Symmetrical Chest Expansion and Respiratory Effort, Clear to Auscultation Cardiovascular: No Edema, - - Irregularly irregular rhythm, Tachycardic rate 100 -120. Grade 2/6 hurmur heard best at LLSB. Radial, DP, PT pulses 2+ B/L. Abdominal: NL Sounds; No Tenderness; No Distention, No Hepatosplenomegaly Lymphatic: No Cervical Adenopathy Extremities: No Edema Skin: No Rash or Ulcers Neurological: Alert and Oriented x 3, NL Gait, - - Sight Facial droop, CN II- XII otherwise grossly intact. Result Diagrams: 07/01/17 10:02 07/01/17 10:02 Additional Lab and Data: Lab Results 06/28/17 06/28/17 06/28/17 Range/Units 20:45 20:45 20:45 WBC 10.9 H (3.5-10.8) 10^3/ul RBC 4.67 (4.0-5.4) 10^6/ul Hgb 12.5 (12.0-16.0) g/dl Hct 38 (35-47) % MCV 82 (80-97) fL MCH 27 (27-31) pg MCHC 33 (31-36) g/dl RDW 17 H (10.5-15) % Plt Count 394 (150-450) 10^3/ul MPV 8 (7.4-10.4) um3 Neut % (Auto) 74.4 (38-83) % Lymph % (Auto) 15.2 L (25-47) % Alfalfa % (Auto) 8.2 (1-9) % Eos % (Auto) 1.5 (0-6) % Baso % (Auto) 0.7 (0-2) % Absolute Neuts (auto) 8.1 H (1.5-7.7) 10^3/ul Absolute Lymphs (auto) 1.7 (1.0-4.8) 10^3/ul Absolute Monos (auto) 0.9 H (0-0.8) 10^3/ul Absolute Eos (auto) 0.2 (0-0.6) 10^3/ul Absolute Basos (auto) 0.1 (0-0.2) 10^3/ul Absolute Nucleated RBC 0 10^3/ul Nucleated RBC % 0 INR (Anticoag Therapy) 3.49 H (0.89-1.11) APTT 41.4 H (26.0-36.3) seconds Sodium 131 L (133-145) mmol/L Potassium 4.1 (3.5-5.0) mmol/L Chloride 101 (101-111) mmol/L Carbon Dioxide 21 L (22-32) mmol/L Anion Gap 9 (2-11) mmol/L BUN 31 H (6-24) mg/dL Creatinine 1.01 H (0.51-0.95) mg/dL Est GFR ( Amer) 66.4 (>60) Est GFR (Non-Af Amer) 51.6 (>60) BUN/Creatinine Ratio 30.7 H (8-20) Glucose 122 H (70-100) mg/dL Lactic Acid (0.5-2.0) mmol/L Calcium 9.3 (8.6-10.3) mg/dL Magnesium 2.1 (1.9-2.7) mg/dL Total Bilirubin 0.60 (0.2-1.0) mg/dL AST 34 (13-39) U/L ALT 27 (7-52) U/L Alkaline Phosphatase 58 (34-104) U/L Total Creatine Kinase 45 (10-223) U/L CK-MB (CK-2) 2.5 (0.6-6.3) ng/mL Troponin I 0.06 H* (<0.04) ng/mL B-Natriuretic Peptide ( - 100) pg/mL Total Protein 7.5 (6.4-8.9) g/dL Albumin 3.7 (3.2-5.2) g/dL Globulin 3.8 (2-4) g/dL Albumin/Globulin Ratio 1.0 (1-3) TSH 9.16 H (0.34-5.60) mcIU/mL Urine Color Urine Appearance Urine pH (5-9) Ur Specific [place] (1.010-1.030) Urine Protein (Negative) Urine Ketones (Negative) Urine Blood (Negative) Urine Nitrate (Negative) Urine Bilirubin (Negative) Urine Urobilinogen (Negative) Ur Leukocyte Esterase (Negative) Urine WBC (Auto) (Absent) Urine RBC (Auto) (Absent) Ur Squamous Epith Cells (Absent) Urine Bacteria (Absent) Urine Glucose (Negative) Urine Ascorbic Acid (Negative) 06/28/17 06/28/17 06/29/17 Range/Units 20:45 20:45 00:37 WBC (3.5-10.8) 10^3/ul RBC (4.0-5.4) 10^6/ul Hgb (12.0-16.0) g/dl Hct (35-47) % MCV (80-97) fL MCH (27-31) pg MCHC (31-36) g/dl RDW (10.5-15) % Plt Count (150-450) 10^3/ul MPV (7.4-10.4) um3 Neut % (Auto) (38-83) % Lymph % (Auto) (25-47) % Alfalfa % (Auto) (1-9) % Eos % (Auto) (0-6) % Baso % (Auto) (0-2) % Absolute Neuts (auto) (1.5-7.7) 10^3/ul Absolute Lymphs (auto) (1.0-4.8) 10^3/ul Absolute Monos (auto) (0-0.8) 10^3/ul Absolute Eos (auto) (0-0.6) 10^3/ul Absolute Basos (auto) (0-0.2) 10^3/ul Absolute Nucleated RBC 10^3/ul Nucleated RBC % INR (Anticoag Therapy) (0.89-1.11) APTT (26.0-36.3) seconds Sodium (133-145) mmol/L Potassium (3.5-5.0) mmol/L Chloride (101-111) mmol/L Carbon Dioxide (22-32) mmol/L Anion Gap (2-11) mmol/L BUN (6-24) mg/dL Creatinine (0.51-0.95) mg/dL Est GFR ( Amer) (>60) Est GFR (Non-Af Amer) (>60) BUN/Creatinine Ratio (8-20) Glucose (70-100) mg/dL Lactic Acid 1.3 (0.5-2.0) mmol/L Calcium (8.6-10.3) mg/dL Magnesium (1.9-2.7) mg/dL Total Bilirubin (0.2-1.0) mg/dL AST (13-39) U/L ALT (7-52) U/L Alkaline Phosphatase (34-104) U/L Total Creatine Kinase (10-223) U/L CK-MB (CK-2) (0.6-6.3) ng/mL Troponin I 0.06 H* (<0.04) ng/mL B-Natriuretic Peptide 1536 H ( - 100) pg/mL Total Protein (6.4-8.9) g/dL Albumin (3.2-5.2) g/dL Globulin (2-4) g/dL Albumin/Globulin Ratio (1-3) TSH (0.34-5.60) mcIU/mL Urine Color Urine Appearance Urine pH (5-9) Ur Specific [place] (1.010-1.030) Urine Protein (Negative) Urine Ketones (Negative) Urine Blood (Negative) Urine Nitrate (Negative) Urine Bilirubin (Negative) Urine Urobilinogen (Negative) Ur Leukocyte Esterase (Negative) Urine WBC (Auto) (Absent) Urine RBC (Auto) (Absent) Ur Squamous Epith Cells (Absent) Urine Bacteria (Absent) Urine Glucose (Negative) Urine Ascorbic Acid (Negative) 06/29/17 06/29/17 06/29/17 Range/Units 05:30 05:30 05:30 WBC 9.0 (3.5-10.8) 10^3/ul RBC 4.49 (4.0-5.4) 10^6/ul Hgb 12.3 (12.0-16.0) g/dl Hct 37 (35-47) % MCV 83 (80-97) fL MCH 27 (27-31) pg MCHC 33 (31-36) g/dl RDW 17 H (10.5-15) % Plt Count 346 (150-450) 10^3/ul MPV 8 (7.4-10.4) um3 Neut % (Auto) (38-83) % Lymph % (Auto) (25-47) % Alfalfa % (Auto) (1-9) % Eos % (Auto) (0-6) % Baso % (Auto) (0-2) % Absolute Neuts (auto) (1.5-7.7) 10^3/ul Absolute Lymphs (auto) (1.0-4.8) 10^3/ul Absolute Monos (auto) (0-0.8) 10^3/ul Absolute Eos (auto) (0-0.6) 10^3/ul Absolute Basos (auto) (0-0.2) 10^3/ul Absolute Nucleated RBC 10^3/ul Nucleated RBC % INR (Anticoag Therapy) 3.50 H (0.89-1.11) APTT (26.0-36.3) seconds Sodium 132 L (133-145) mmol/L Potassium 4.2 (3.5-5.0) mmol/L Chloride 101 (101-111) mmol/L Carbon Dioxide 23 (22-32) mmol/L Anion Gap 8 (2-11) mmol/L BUN 31 H (6-24) mg/dL Creatinine 0.96 H (0.51-0.95) mg/dL Est GFR ( Amer) 70.4 (>60) Est GFR (Non-Af Amer) 54.7 (>60) BUN/Creatinine Ratio 32.3 H (8-20) Glucose 122 H (70-100) mg/dL Lactic Acid (0.5-2.0) mmol/L Calcium 9.0 (8.6-10.3) mg/dL Magnesium (1.9-2.7) mg/dL Total Bilirubin (0.2-1.0) mg/dL AST (13-39) U/L ALT (7-52) U/L Alkaline Phosphatase (34-104) U/L Total Creatine Kinase (10-223) U/L CK-MB (CK-2) (0.6-6.3) ng/mL Troponin I 0.05 H* (<0.04) ng/mL B-Natriuretic Peptide ( - 100) pg/mL Total Protein (6.4-8.9) g/dL Albumin (3.2-5.2) g/dL Globulin (2-4) g/dL Albumin/Globulin Ratio (1-3) TSH (0.34-5.60) mcIU/mL Urine Color Urine Appearance Urine pH (5-9) Ur Specific [place] (1.010-1.030) Urine Protein (Negative) Urine Ketones (Negative) Urine Blood (Negative) Urine Nitrate (Negative) Urine Bilirubin (Negative) Urine Urobilinogen (Negative) Ur Leukocyte Esterase (Negative) Urine WBC (Auto) (Absent) Urine RBC (Auto) (Absent) Ur Squamous Epith Cells (Absent) Urine Bacteria (Absent) Urine Glucose (Negative) Urine Ascorbic Acid (Negative) 06/29/17 Range/Units 07:10 WBC (3.5-10.8) 10^3/ul RBC (4.0-5.4) 10^6/ul Hgb (12.0-16.0) g/dl Hct (35-47) % MCV (80-97) fL MCH (27-31) pg MCHC (31-36) g/dl RDW (10.5-15) % Plt Count (150-450) 10^3/ul MPV (7.4-10.4) um3 Neut % (Auto) (38-83) % Lymph % (Auto) (25-47) % Alfalfa % (Auto) (1-9) % Eos % (Auto) (0-6) % Baso % (Auto) (0-2) % Absolute Neuts (auto) (1.5-7.7) 10^3/ul Absolute Lymphs (auto) (1.0-4.8) 10^3/ul Absolute Monos (auto) (0-0.8) 10^3/ul Absolute Eos (auto) (0-0.6) 10^3/ul Absolute Basos (auto) (0-0.2) 10^3/ul Absolute Nucleated RBC 10^3/ul Nucleated RBC % INR (Anticoag Therapy) (0.89-1.11) APTT (26.0-36.3) seconds Sodium (133-145) mmol/L Potassium (3.5-5.0) mmol/L Chloride (101-111) mmol/L Carbon Dioxide (22-32) mmol/L Anion Gap (2-11) mmol/L BUN (6-24) mg/dL Creatinine (0.51-0.95) mg/dL Est GFR ( Amer) (>60) Est GFR (Non-Af Amer) (>60) BUN/Creatinine Ratio (8-20) Glucose (70-100) mg/dL Lactic Acid (0.5-2.0) mmol/L Calcium (8.6-10.3) mg/dL Magnesium (1.9-2.7) mg/dL Total Bilirubin (0.2-1.0) mg/dL AST (13-39) U/L ALT (7-52) U/L Alkaline Phosphatase (34-104) U/L Total Creatine Kinase (10-223) U/L CK-MB (CK-2) (0.6-6.3) ng/mL Troponin I (<0.04) ng/mL B-Natriuretic Peptide ( - 100) pg/mL Total Protein (6.4-8.9) g/dL Albumin (3.2-5.2) g/dL Globulin (2-4) g/dL Albumin/Globulin Ratio (1-3) TSH (0.34-5.60) mcIU/mL Urine Color Roseanna Urine Appearance Cloudy Urine pH 5.0 (5-9) Ur Specific [place] 1.029 (1.010-1.030) Urine Protein 2+(100 mg/dl) H (Negative) Urine Ketones Trace H (Negative) Urine Blood 2+ H (Negative) Urine Nitrate Negative (Negative) Urine Bilirubin Negative (Negative) Urine Urobilinogen Negative (Negative) Ur Leukocyte Esterase 2+ H (Negative) Urine WBC (Auto) 3+(>20/hpf) H (Absent) Urine RBC (Auto) Absent (Absent) Ur Squamous Epith Cells Present H (Absent) Urine Bacteria 3+ H (Absent) Urine Glucose Negative (Negative) Urine Ascorbic Acid * H (Negative) 06/28/17 06/28/17 06/28/17 20:45 20:45 20:45 WBC 10.9 H RBC 4.67 Hgb 12.5 Hct 38 MCV 82 MCH 27 MCHC 33 RDW 17 H Plt Count 394 MPV 8 Neut % (Auto) 74.4 Lymph % (Auto) 15.2 L Alfalfa % (Auto) 8.2 Eos % (Auto) 1.5 Baso % (Auto) 0.7 Absolute Neuts (auto) 8.1 H Absolute Lymphs (auto) 1.7 Absolute Monos (auto) 0.9 H Absolute Eos (auto) 0.2 Absolute Basos (auto) 0.1 Absolute Nucleated RBC 0 Nucleated RBC % 0 INR (Anticoag Therapy) 3.49 H APTT 41.4 H Sodium 131 L Potassium 4.1 Chloride 101 Carbon Dioxide 21 L Anion Gap 9 BUN 31 H Creatinine 1.01 H Est GFR ( Amer) 66.4 Est GFR (Non-Af Amer) 51.6 BUN/Creatinine Ratio 30.7 H Glucose 122 H Lactic Acid Calcium 9.3 Magnesium 2.1 Total Bilirubin 0.60 AST 34 ALT 27 Alkaline Phosphatase 58 Total Creatine Kinase 45 CK-MB (CK-2) 2.5 Troponin I 0.06 H* B-Natriuretic Peptide Total Protein 7.5 Albumin 3.7 Globulin 3.8 Albumin/Globulin Ratio 1.0 TSH 9.16 H Urine Color Urine Appearance Urine pH Ur Specific [place] Urine Protein Urine Ketones Urine Blood Urine Nitrate Urine Bilirubin Urine Urobilinogen Ur Leukocyte Esterase Urine WBC (Auto) Urine RBC (Auto) Ur Squamous Epith Cells Urine Bacteria Urine Glucose Urine Ascorbic Acid 06/28/17 06/28/17 06/29/17 20:45 20:45 00:37 WBC RBC Hgb Hct MCV MCH MCHC RDW Plt Count MPV Neut % (Auto) Lymph % (Auto) Alfalfa % (Auto) Eos % (Auto) Baso % (Auto) Absolute Neuts (auto) Absolute Lymphs (auto) Absolute Monos (auto) Absolute Eos (auto) Absolute Basos (auto) Absolute Nucleated RBC Nucleated RBC % INR (Anticoag Therapy) APTT Sodium Potassium Chloride Carbon Dioxide Anion Gap BUN Creatinine Est GFR ( Amer) Est GFR (Non-Af Amer) BUN/Creatinine Ratio Glucose Lactic Acid 1.3 Calcium Magnesium Total Bilirubin AST ALT Alkaline Phosphatase Total Creatine Kinase CK-MB (CK-2) Troponin I 0.06 H* B-Natriuretic Peptide 1536 H Total Protein Albumin Globulin Albumin/Globulin Ratio TSH Urine Color Urine Appearance Urine pH Ur Specific [place] Urine Protein Urine Ketones Urine Blood Urine Nitrate Urine Bilirubin Urine Urobilinogen Ur Leukocyte Esterase Urine WBC (Auto) Urine RBC (Auto) Ur Squamous Epith Cells Urine Bacteria Urine Glucose Urine Ascorbic Acid 06/29/17 06/29/17 06/29/17 05:30 05:30 05:30 WBC 9.0 RBC 4.49 Hgb 12.3 Hct 37 MCV 83 MCH 27 MCHC 33 RDW 17 H Plt Count 346 MPV 8 Neut % (Auto) Lymph % (Auto) Alfalfa % (Auto) Eos % (Auto) Baso % (Auto) Absolute Neuts (auto) Absolute Lymphs (auto) Absolute Monos (auto) Absolute Eos (auto) Absolute Basos (auto) Absolute Nucleated RBC Nucleated RBC % INR (Anticoag Therapy) 3.50 H APTT Sodium 132 L Potassium 4.2 Chloride 101 Carbon Dioxide 23 Anion Gap 8 BUN 31 H Creatinine 0.96 H Est GFR ( Amer) 70.4 Est GFR (Non-Af Amer) 54.7 BUN/Creatinine Ratio 32.3 H Glucose 122 H Lactic Acid Calcium 9.0 Magnesium Total Bilirubin AST ALT Alkaline Phosphatase Total Creatine Kinase CK-MB (CK-2) Troponin I 0.05 H* B-Natriuretic Peptide Total Protein Albumin Globulin Albumin/Globulin Ratio TSH Urine Color Urine Appearance Urine pH Ur Specific [place] Urine Protein Urine Ketones Urine Blood Urine Nitrate Urine Bilirubin Urine Urobilinogen Ur Leukocyte Esterase Urine WBC (Auto) Urine RBC (Auto) Ur Squamous Epith Cells Urine Bacteria Urine Glucose Urine Ascorbic Acid 06/29/17 06/30/17 06/30/17 07:10 04:43 04:43 WBC 8.9 RBC 4.69 Hgb 12.6 Hct 39 MCV 83 MCH 27 MCHC 33 RDW 17 H Plt Count 363 MPV 8 Neut % (Auto) 72.2 Lymph % (Auto) 14.2 L [place]alfa % (Auto) 11.1 H Eos % (Auto) 1.9 Baso % (Auto) 0.6 Absolute Neuts (auto) 6.4 Absolute Lymphs (auto) 1.3 Absolute Monos (auto) 1.0 H Absolute Eos (auto) 0.2 Absolute Basos (auto) 0 Absolute Nucleated RBC 0.01 Nucleated RBC % 0.1 INR (Anticoag Therapy) 4.14 H APTT Sodium Potassium Chloride Carbon Dioxide Anion Gap BUN Creatinine Est GFR ( Amer) Est GFR (Non-Af Amer) BUN/Creatinine Ratio Glucose Lactic Acid Calcium Magnesium Total Bilirubin AST ALT Alkaline Phosphatase Total Creatine Kinase CK-MB (CK-2) Troponin I B-Natriuretic Peptide Total Protein Albumin Globulin Albumin/Globulin Ratio TSH Urine Color Roseanna Urine Appearance Cloudy Urine pH 5.0 Ur Specific [place] 1.029 Urine Protein 2+(100 mg/dl) H Urine Ketones Trace H Urine Blood 2+ H Urine Nitrate Negative Urine Bilirubin Negative Urine Urobilinogen Negative Ur Leukocyte Esterase 2+ H Urine WBC (Auto) 3+(>20/hpf) H Urine RBC (Auto) Absent Ur Squamous Epith Cells Present H Urine Bacteria 3+ H Urine Glucose Negative Urine Ascorbic Acid * H 06/30/17 04:43 WBC RBC Hgb Hct MCV MCH MCHC RDW Plt Count MPV Neut % (Auto) Lymph % (Auto) Alfalfa % (Auto) Eos % (Auto) Baso % (Auto) Absolute Neuts (auto) Absolute Lymphs (auto) Absolute Monos (auto) Absolute Eos (auto) Absolute Basos (auto) Absolute Nucleated RBC Nucleated RBC % INR (Anticoag Therapy) APTT Sodium 131 L Potassium 4.1 Chloride 99 L Carbon Dioxide 24 Anion Gap 8 BUN 38 H Creatinine 1.25 H Est GFR ( Amer) 51.9 Est GFR (Non-Af Amer) 40.4 BUN/Creatinine Ratio 30.4 H Glucose 123 H Lactic Acid Calcium 9.4 Magnesium Total Bilirubin AST ALT Alkaline Phosphatase Total Creatine Kinase CK-MB (CK-2) Troponin I B-Natriuretic Peptide Total Protein Albumin Globulin Albumin/Globulin Ratio TSH Urine Color Urine Appearance Urine pH Ur Specific [place] Urine Protein Urine Ketones Urine Blood Urine Nitrate Urine Bilirubin Urine Urobilinogen Ur Leukocyte Esterase Urine WBC (Auto) Urine RBC (Auto) Ur Squamous Epith Cells Urine Bacteria Urine Glucose Urine Ascorbic Acid 06/28/17 06/28/17 06/28/17 20:45 20:45 20:45 WBC 10.9 H RBC 4.67 Hgb 12.5 Hct 38 MCV 82 MCH 27 MCHC 33 RDW 17 H Plt Count 394 MPV 8 Neut % (Auto) 74.4 Lymph % (Auto) 15.2 L [place]alfa % (Auto) 8.2 Eos % (Auto) 1.5 Baso % (Auto) 0.7 Absolute Neuts (auto) 8.1 H Absolute Lymphs (auto) 1.7 Absolute Monos (auto) 0.9 H Absolute Eos (auto) 0.2 Absolute Basos (auto) 0.1 Absolute Nucleated RBC 0 Nucleated RBC % 0 INR (Anticoag Therapy) 3.49 H APTT 41.4 H Sodium 131 L Potassium 4.1 Chloride 101 Carbon Dioxide 21 L Anion Gap 9 BUN 31 H Creatinine 1.01 H Est GFR ( Amer) 66.4 Est GFR (Non-Af Amer) 51.6 BUN/Creatinine Ratio 30.7 H Glucose 122 H Lactic Acid Calcium 9.3 Magnesium 2.1 Total Bilirubin 0.60 AST 34 ALT 27 Alkaline Phosphatase 58 Total Creatine Kinase 45 CK-MB (CK-2) 2.5 Troponin I 0.06 H* B-Natriuretic Peptide Total Protein 7.5 Albumin 3.7 Globulin 3.8 Albumin/Globulin Ratio 1.0 TSH 9.16 H Urine Color Urine Appearance Urine pH Ur Specific [place] Urine Protein Urine Ketones Urine Blood Urine Nitrate Urine Bilirubin Urine Urobilinogen Ur Leukocyte Esterase Urine WBC (Auto) Urine RBC (Auto) Ur Squamous Epith Cells Urine Bacteria Urine Glucose Urine Ascorbic Acid 06/28/17 06/28/17 06/29/17 20:45 20:45 00:37 WBC RBC Hgb Hct MCV MCH MCHC RDW Plt Count MPV Neut % (Auto) Lymph % (Auto) Alfalfa % (Auto) Eos % (Auto) Baso % (Auto) Absolute Neuts (auto) Absolute Lymphs (auto) Absolute Monos (auto) Absolute Eos (auto) Absolute Basos (auto) Absolute Nucleated RBC Nucleated RBC % INR (Anticoag Therapy) APTT Sodium Potassium Chloride Carbon Dioxide Anion Gap BUN Creatinine Est GFR ( Amer) Est GFR (Non-Af Amer) BUN/Creatinine Ratio Glucose Lactic Acid 1.3 Calcium Magnesium Total Bilirubin AST ALT Alkaline Phosphatase Total Creatine Kinase CK-MB (CK-2) Troponin I 0.06 H* B-Natriuretic Peptide 1536 H Total Protein Albumin Globulin Albumin/Globulin Ratio TSH Urine Color Urine Appearance Urine pH Ur Specific [place] Urine Protein Urine Ketones Urine Blood Urine Nitrate Urine Bilirubin Urine Urobilinogen Ur Leukocyte Esterase Urine WBC (Auto) Urine RBC (Auto) Ur Squamous Epith Cells Urine Bacteria Urine Glucose Urine Ascorbic Acid 06/29/17 06/29/17 06/29/17 05:30 05:30 05:30 WBC 9.0 RBC 4.49 Hgb 12.3 Hct 37 MCV 83 MCH 27 MCHC 33 RDW 17 H Plt Count 346 MPV 8 Neut % (Auto) Lymph % (Auto) Alfalfa % (Auto) Eos % (Auto) Baso % (Auto) Absolute Neuts (auto) Absolute Lymphs (auto) Absolute Monos (auto) Absolute Eos (auto) Absolute Basos (auto) Absolute Nucleated RBC Nucleated RBC % INR (Anticoag Therapy) 3.50 H APTT Sodium 132 L Potassium 4.2 Chloride 101 Carbon Dioxide 23 Anion Gap 8 BUN 31 H Creatinine 0.96 H Est GFR ( Amer) 70.4 Est GFR (Non-Af Amer) 54.7 BUN/Creatinine Ratio 32.3 H Glucose 122 H Lactic Acid Calcium 9.0 Magnesium Total Bilirubin AST ALT Alkaline Phosphatase Total Creatine Kinase CK-MB (CK-2) Troponin I 0.05 H* B-Natriuretic Peptide Total Protein Albumin Globulin Albumin/Globulin Ratio TSH Urine Color Urine Appearance Urine pH Ur Specific [place] Urine Protein Urine Ketones Urine Blood Urine Nitrate Urine Bilirubin Urine Urobilinogen Ur Leukocyte Esterase Urine WBC (Auto) Urine RBC (Auto) Ur Squamous Epith Cells Urine Bacteria Urine Glucose Urine Ascorbic Acid 06/29/17 06/30/17 06/30/17 07:10 04:43 04:43 WBC 8.9 RBC 4.69 Hgb 12.6 Hct 39 MCV 83 MCH 27 MCHC 33 RDW 17 H Plt Count 363 MPV 8 Neut % (Auto) 72.2 Lymph % (Auto) 14.2 L Al[place]alfa % (Auto) 11.1 H Eos % (Auto) 1.9 Baso % (Auto) 0.6 Absolute Neuts (auto) 6.4 Absolute Lymphs (auto) 1.3 Absolute Monos (auto) 1.0 H Absolute Eos (auto) 0.2 Absolute Basos (auto) 0 Absolute Nucleated RBC 0.01 Nucleated RBC % 0.1 INR (Anticoag Therapy) 4.14 H APTT Sodium Potassium Chloride Carbon Dioxide Anion Gap BUN Creatinine Est GFR ( Amer) Est GFR (Non-Af Amer) BUN/Creatinine Ratio Glucose Lactic Acid Calcium Magnesium Total Bilirubin AST ALT Alkaline Phosphatase Total Creatine Kinase CK-MB (CK-2) Troponin I B-Natriuretic Peptide Total Protein Albumin Globulin Albumin/Globulin Ratio TSH Urine Color Roseanna Urine Appearance Cloudy Urine pH 5.0 Ur Specific [place] 1.029 Urine Protein 2+(100 mg/dl) H Urine Ketones Trace H Urine Blood 2+ H Urine Nitrate Negative Urine Bilirubin Negative Urine Urobilinogen Negative Ur Leukocyte Esterase 2+ H Urine WBC (Auto) 3+(>20/hpf) H Urine RBC (Auto) Absent Ur Squamous Epith Cells Present H Urine Bacteria 3+ H Urine Glucose Negative Urine Ascorbic Acid * H 06/30/17 07/01/17 07/01/17 04:43 10:02 10:02 WBC 10.7 RBC 4.87 Hgb 13.1 Hct 41 MCV 84 MCH 27 MCHC 32 RDW 17 H Plt Count 393 MPV 8 Neut % (Auto) 79.9 Lymph % (Auto) 10.9 L Alfalfa % (Auto) 7.2 Eos % (Auto) 1.1 Baso % (Auto) 0.9 Absolute Neuts (auto) 8.6 H Absolute Lymphs (auto) 1.2 Absolute Monos (auto) 0.8 Absolute Eos (auto) 0.1 Absolute Basos (auto) 0.1 Absolute Nucleated RBC 0.01 Nucleated RBC % 0.1 INR (Anticoag Therapy) 2.84 H APTT Sodium 131 L Potassium 4.1 Chloride 99 L Carbon Dioxide 24 Anion Gap 8 BUN 38 H Creatinine 1.25 H Est GFR ( Amer) 51.9 Est GFR (Non-Af Amer) 40.4 BUN/Creatinine Ratio 30.4 H Glucose 123 H Lactic Acid Calcium 9.4 Magnesium Total Bilirubin AST ALT Alkaline Phosphatase Total Creatine Kinase CK-MB (CK-2) Troponin I B-Natriuretic Peptide Total Protein Albumin Globulin Albumin/Globulin Ratio TSH Urine Color Urine Appearance Urine pH Ur Specific [place] Urine Protein Urine Ketones Urine Blood Urine Nitrate Urine Bilirubin Urine Urobilinogen Ur Leukocyte Esterase Urine WBC (Auto) Urine RBC (Auto) Ur Squamous Epith Cells Urine Bacteria Urine Glucose Urine Ascorbic Acid 07/01/17 10:02 WBC RBC Hgb Hct MCV MCH MCHC RDW Plt Count MPV Neut % (Auto) Lymph % (Auto) Alfalfa % (Auto) Eos % (Auto) Baso % (Auto) Absolute Neuts (auto) Absolute Lymphs (auto) Absolute Monos (auto) Absolute Eos (auto) Absolute Basos (auto) Absolute Nucleated RBC Nucleated RBC % INR (Anticoag Therapy) APTT Sodium 128 L Potassium 4.7 Chloride 98 L Carbon Dioxide 23 Anion Gap 7 BUN 38 H Creatinine 1.31 H Est GFR ( Amer) 49.2 Est GFR (Non-Af Amer) 38.2 BUN/Creatinine Ratio 29.0 H Glucose 192 H Lactic Acid Calcium 9.4 Magnesium Total Bilirubin AST ALT Alkaline Phosphatase Total Creatine Kinase CK-MB (CK-2) Troponin I B-Natriuretic Peptide Total Protein Albumin Globulin Albumin/Globulin Ratio TSH Urine Color Urine Appearance Urine pH Ur Specific [place] Urine Protein Urine Ketones Urine Blood Urine Nitrate Urine Bilirubin Urine Urobilinogen Ur Leukocyte Esterase Urine WBC (Auto) Urine RBC (Auto) Ur Squamous Epith Cells Urine Bacteria Urine Glucose Urine Ascorbic Acid Assess/Plan/Problems-Billing Assessment: Ms. Law is an 87 yo female with a PMH of PAF, BrCa, pulm HTN, HTN, and orthostasis who presented to the ED on 06/28 with concern for afib with RVR. - Patient Problems (1) Atrial fibrillation Current Visit: Yes Status: Chronic Priority: High Code(s): I48.91 - UNSPECIFIED ATRIAL FIBRILLATION SNOMED Code(s): 34585816 Comment: With RVR, sustaining in 100-130 range despite PRN metoprolol. Will increase Cardizem to 240mg PO for tomorrow. Continue on Metoprolol and Cardizem Utilize prn metoprolol for sustained HR >/= 120s INR still supratherapeutic. Continue to hold warfarin. (2) Acute kidney injury Current Visit: Yes Status: Acute Code(s): N17.9 - ACUTE KIDNEY FAILURE, UNSPECIFIED SNOMED Code(s): 38384636 Comment: Increased BUN/Cret ratio and clinical picture indicate possible prerenal YUE. Fluids ordered, will redose as needed. Continue to trend (3) Urinary tract infection Current Visit: Yes Status: Acute Comment: Culture shows mixed mee, possible contaminant, will continue empiric treatment with Cefriaxone 1gm Q24hr. Will repeat UA/culture. Zofran for nausea. Patient otherwise asymptomatic. Will trend CRP to assess inflammation. (4) Anxiety Current Visit: Yes Status: Chronic Code(s): F41.9 - ANXIETY DISORDER, UNSPECIFIED SNOMED Code(s): 49252219 Comment: Anxiety controlled at this time. Patient on home Prozac for anxiety. Prescribed Ativan .5mg IV PRN. (5) DVT prophylaxis Current Visit: No Status: Acute Code(s): OCL1342 - SNOMED Code(s): 724021131 Comment: Warfarin INR is therapeutic, will resume coumadin. Encourage ambulation. (6) Generalized weakness Current Visit: No Status: Acute Code(s): R53.1 - WEAKNESS SNOMED Code(s): 62333919 Comment: May be due to dehydration, UTI and possible deconditioning. Patient seeing PT/ OT. Patient does not feel safe going home in current condition. (7) DNR (do not resuscitate) Current Visit: No Status: Acute Status and Disposition: Inpatient admit. Dc to [facility] when medically stable.
[2017-07-01] MEDS: LORazepam INJ* 2 MG/ML 1 ML VIAL IV PUSH PRN ×2 (14:59→19:36)
[2017-07-01] MEDS: Senna TAB PO SCH (19:40)
[2017-07-01] MEDS: CMCS Melatonin (NF) 3 MG TAB PO SCH (19:40)
[2017-07-02] MEDS: NS 0.9% 1000 ML* 1,000 ML IV SCH ×3 (01:59→20:56)
[2017-07-02 02:38] LABS: Urine Bacteria 2+ (Absent); Urine Bilirubin Negative (Negative); Urine Glucose Negative (Negative); Urine Nitrite Negative (Negative)
[2017-07-02 05:41] LABS: Hematocrit 38 % (35-47); Hemoglobin 12.1 g/dl (12.0-16.0); Mean Corpuscular HGB Conc 32 g/dl (31-36); Mean Corpuscular Hemoglobin 27 pg (27-31); Mean Corpuscular Volume 84 fL (80-97); Mean Platelet Volume 8 um3 (7.4-10.4); Red Blood Count 4.52 10^6/ul (4.0-5.4); Red Cell Distribution Width 17 % (10.5-15); White Blood Count 9.9 10^3/ul (3.5-10.8)
[2017-07-02 05:50] LABS: BUN/Creatinine Ratio 34.2 (8-20); C Reactive Protein 44.35 mg/L (< 5.00); Calcium 8.7 mg/dL (8.6-10.3); EGFR African American 57.7 (>60); EGFR Non-African American 44.9 (>60); Potassium 4.5 mmol/L (3.5-5.0)
[2017-07-02] MEDS: FLUoxetine CAP* 20 MG PO SCH (09:43)
[2017-07-02] MEDS: CMCS: Anastrozole (NF) 1 MG TAB PO SCH (09:43)
[2017-07-02] MEDS: cefTRIAXone VIAL(*) 1,000 MG in NS 0.9% 50 ML* 50 ML IVPB SCH (09:43)
[2017-07-02] MEDS: Diltiazem CD CAP* 240 MG PO SCH (09:43)
[2017-07-02] MEDS: Metoprolol Succinate XL TAB* 25 MG PO SCH (09:43)
[2017-07-02] MEDS ORDERED: Furosemide IV* 10 MG/ML 2 ML VIAL (20 MG) IV SLOW PU ONE (11:39)
[2017-07-02] MEDS ORDERED: Metoprolol Succinate XL TAB* 25 MG PO ONE (11:42)
--- NOTE | 2017-07-02 12:14 | RAD ---
HISTORY: Rales, atrial fibrillation COMPARISONS: June 28, 2017 VIEWS: 1: frontal portable view of the chest at 11:40 AM FINDINGS: LINES AND TUBES: A left-sided pacemaker is noted CARDIOMEDIASTINAL SILHOUETTE: The cardiac silhouette is enlarged. The cardiomediastinal silhouette is otherwise normal for portable technique. PLEURA: The costophrenic angles are sharp. No pleural abnormalities are noted. LUNG PARENCHYMA: The lungs are clear. ABDOMEN: The upper abdomen is clear. There is no subphrenic gas. BONES AND SOFT TISSUES: No bone or soft tissue abnormalities are noted. IMPRESSION: Cardiomegaly. NO ACTIVE CARDIOPULMONARY DISEASE.
--- NOTE | 2017-07-02 15:11 | PN ---
Subjective Date of Service: 07/02/17 Interval History: Patient feeling fatigue which is unchanged from yesterday. Patient states that the fluids she received yesterday were helpful at the time, but did not produce lasting improvement. Patient states she was very anxious overnight, but cannot express why. Patient received ativan x2 and states that it is still helping control her anxiety at this time. Patient denied CP, SOB, N/V, Abdominal pain, pain in her legs, or changes in urine. Patient states that she had an episode of urinary incontinence yesterday and that she has difficulty initiating her urine stream when she feels like she needs to go. Patient would be amenable to a short term stay in the SNF at [facility] when she is discharged. Patient's O2 saturation dropped down to 86 overnight and she was placed on 2L O2. Patient's O2 saturation is currently at 93-95 on RA. Family History: Unchanged from Admission Social History: Unchanged from Admission Past Medical History: Unchanged from Admission Objective Active Medications: Acetaminophen (Tylenol Supp*) 650 mg DE Q6H PRN PRN Reason: FEVER/PAIN Anastrozole (Arimidex (Nf)) 1 mg PO QAM [facility] Last Admin: 07/02/17 09:43 Dose: 1 mg Bisacodyl (Dulcolax Supp*) 10 mg DE QPM PRN PRN Reason: CONSTIPATION Diltiazem HCl (Cardizem Cd Cap*) 240 mg PO DAILY [facility] Last Admin: 07/02/17 09:43 Dose: 240 mg Fluoxetine HCl (Prozac Cap*) 40 mg PO DAILY [facility] Last Admin: 07/02/17 09:43 Dose: 40 mg Ceftriaxone Sodium 1,000 mg/ (Sodium Chloride) 50 mls @ 200 mls/hr IVPB Q24H [facility] Last Admin: 07/02/17 09:43 Dose: 200 mls/hr Sodium Chloride (Ns 0.9% 1000 Ml*) 1,000 mls @ 150 mls/hr IV PER RATE [facility] Last Admin: 07/02/17 13:00 Dose: 150 mls/hr Lorazepam (Ativan Inj*) 0.5 mg IV PUSH Q4H PRN PRN Reason: ANXIETY Last Admin: 07/01/17 19:36 Dose: 0.5 mg Melatonin (Melatonin (Nf)) 6 mg PO BEDTIME [facility] Last Admin: 07/01/17 19:40 Dose: 6 mg Metoprolol Succinate (Toprol Xl Tab*) 50 mg PO DAILY [facility] Metoprolol Tartrate (Lopressor Iv*) 5 mg IV Q6H PRN PRN Reason: HEART RATE/PULSE GREATER THAN: Last Admin: 07/01/17 08:36 Dose: 5 mg Ondansetron HCl (Zofran Inj*) 4 mg IV Q6H PRN PRN Reason: NAUSEA Last Admin: 06/30/17 08:11 Dose: 4 mg Senna (Senokot Tab*) 2 tab PO BEDTIME [facility] Last Admin: 07/01/17 19:40 Dose: 2 tab Warfarin Sodium (Coumadin Tab(*)) 2.5 mg PO DAILY@1700 [facility] PRN Reason: Protocol Vital Signs 07/01/17 07/01/17 07/01/17 15:34 15:59 19:36 Temperature 97.3 F Pulse Rate 89 Respiratory 16 14 167 Rate Blood Pressure 115/89 (mmHg) O2 Sat by Pulse 94 Oximetry 07/01/17 07/01/17 07/01/17 20:00 20:03 22:06 Temperature 97.5 F Pulse Rate 56 115 Respiratory 20 20 22 Rate Blood Pressure 118/70 120/76 (mmHg) O2 Sat by Pulse 95 94 Oximetry 07/01/17 07/01/17 07/02/17 23:41 23:42 00:39 Temperature 97.4 F Pulse Rate 122 130 123 Respiratory 16 16 20 Rate Blood Pressure 120/89 130/107 130/96 (mmHg) O2 Sat by Pulse 85 98 96 Oximetry 07/02/17 07/02/17 07/02/17 01:47 03:29 07:22 Temperature 99.1 F Pulse Rate 53 131 Respiratory 16 22 Rate Blood Pressure 134/115 139/110 (mmHg) O2 Sat by Pulse 96 100 95 Oximetry 07/02/17 07/02/17 07/02/17 08:00 09:08 11:04 Temperature 97.5 F Pulse Rate 57 Respiratory 18 18 Rate Blood Pressure 125/93 (mmHg) O2 Sat by Pulse 96 97 Oximetry Oxygen Devices in Use Now: None Eyes: No Scleral Icterus, PERRLA Ears/Nose/Mouth/Throat: NL Teeth, Lips, Gums, Clear Oropharnyx, Mucous Membranes Moist Neck: NL Appearance and Movements; NL JVP Respiratory: Symmetrical Chest Expansion and Respiratory Effort, - - Rales heard prominently in lung bases Bilaterally. Cardiovascular: - - Irregularly irregular rhythm, Pulse rate between 90-100 at this time. Grade 2/6 murmur heard best at LLSB. Radial, PT and DP pulses 2+ B/ L. New 1+ pitting edema in lower extremities. Abdominal: NL Sounds; No Tenderness; No Distention, No Hepatosplenomegaly Lymphatic: No Cervical Adenopathy Skin: No Rash or Ulcers Neurological: Alert and Oriented x 3, - - Strength 4/5 in bilateral lower and upper extremities, distal and proximal muscle groups. Patient walks with a hesitant and shuffling gait. Result Diagrams: 07/02/17 04:29 07/02/17 04:29 Additional Lab and Data: Lab Results 06/28/17 06/28/17 06/28/17 Range/Units 20:45 20:45 20:45 WBC 10.9 H (3.5-10.8) 10^3/ul RBC 4.67 (4.0-5.4) 10^6/ul Hgb 12.5 (12.0-16.0) g/dl Hct 38 (35-47) % MCV 82 (80-97) fL MCH 27 (27-31) pg MCHC 33 (31-36) g/dl RDW 17 H (10.5-15) % Plt Count 394 (150-450) 10^3/ul MPV 8 (7.4-10.4) um3 Neut % (Auto) 74.4 (38-83) % Lymph % (Auto) 15.2 L (25-47) % Rush % (Auto) 8.2 (1-9) % Eos % (Auto) 1.5 (0-6) % Baso % (Auto) 0.7 (0-2) % Absolute Neuts (auto) 8.1 H (1.5-7.7) 10^3/ul Absolute Lymphs (auto) 1.7 (1.0-4.8) 10^3/ul Absolute Monos (auto) 0.9 H (0-0.8) 10^3/ul Absolute Eos (auto) 0.2 (0-0.6) 10^3/ul Absolute Basos (auto) 0.1 (0-0.2) 10^3/ul Absolute Nucleated RBC 0 10^3/ul Nucleated RBC % 0 INR (Anticoag Therapy) 3.49 H (0.89-1.11) APTT 41.4 H (26.0-36.3) seconds Sodium 131 L (133-145) mmol/L Potassium 4.1 (3.5-5.0) mmol/L Chloride 101 (101-111) mmol/L Carbon Dioxide 21 L (22-32) mmol/L Anion Gap 9 (2-11) mmol/L BUN 31 H (6-24) mg/dL Creatinine 1.01 H (0.51-0.95) mg/dL Est GFR ( Amer) 66.4 (>60) Est GFR (Non-Af Amer) 51.6 (>60) BUN/Creatinine Ratio 30.7 H (8-20) Glucose 122 H (70-100) mg/dL Lactic Acid (0.5-2.0) mmol/L Calcium 9.3 (8.6-10.3) mg/dL Magnesium 2.1 (1.9-2.7) mg/dL Total Bilirubin 0.60 (0.2-1.0) mg/dL AST 34 (13-39) U/L ALT 27 (7-52) U/L Alkaline Phosphatase 58 (34-104) U/L Total Creatine Kinase 45 (10-223) U/L CK-MB (CK-2) 2.5 (0.6-6.3) ng/mL Troponin I 0.06 H* (<0.04) ng/mL B-Natriuretic Peptide ( - 100) pg/mL Total Protein 7.5 (6.4-8.9) g/dL Albumin 3.7 (3.2-5.2) g/dL Globulin 3.8 (2-4) g/dL Albumin/Globulin Ratio 1.0 (1-3) TSH 9.16 H (0.34-5.60) mcIU/mL Urine Color Urine Appearance Urine pH (5-9) Ur Specific Evans (1.010-1.030) Urine Protein (Negative) Urine Ketones (Negative) Urine Blood (Negative) Urine Nitrate (Negative) Urine Bilirubin (Negative) Urine Urobilinogen (Negative) Ur Leukocyte Esterase (Negative) Urine WBC (Auto) (Absent) Urine RBC (Auto) (Absent) Ur Squamous Epith Cells (Absent) Urine Bacteria (Absent) Urine Glucose (Negative) Urine Ascorbic Acid (Negative) 06/28/17 06/28/17 06/29/17 Range/Units 20:45 20:45 00:37 WBC (3.5-10.8) 10^3/ul RBC (4.0-5.4) 10^6/ul Hgb (12.0-16.0) g/dl Hct (35-47) % MCV (80-97) fL MCH (27-31) pg MCHC (31-36) g/dl RDW (10.5-15) % Plt Count (150-450) 10^3/ul MPV (7.4-10.4) um3 Neut % (Auto) (38-83) % Lymph % (Auto) (25-47) % Rush % (Auto) (1-9) % Eos % (Auto) (0-6) % Baso % (Auto) (0-2) % Absolute Neuts (auto) (1.5-7.7) 10^3/ul Absolute Lymphs (auto) (1.0-4.8) 10^3/ul Absolute Monos (auto) (0-0.8) 10^3/ul Absolute Eos (auto) (0-0.6) 10^3/ul Absolute Basos (auto) (0-0.2) 10^3/ul Absolute Nucleated RBC 10^3/ul Nucleated RBC % INR (Anticoag Therapy) (0.89-1.11) APTT (26.0-36.3) seconds Sodium (133-145) mmol/L Potassium (3.5-5.0) mmol/L Chloride (101-111) mmol/L Carbon Dioxide (22-32) mmol/L Anion Gap (2-11) mmol/L BUN (6-24) mg/dL Creatinine (0.51-0.95) mg/dL Est GFR ( Amer) (>60) Est GFR (Non-Af Amer) (>60) BUN/Creatinine Ratio (8-20) Glucose (70-100) mg/dL Lactic Acid 1.3 (0.5-2.0) mmol/L Calcium (8.6-10.3) mg/dL Magnesium (1.9-2.7) mg/dL Total Bilirubin (0.2-1.0) mg/dL AST (13-39) U/L ALT (7-52) U/L Alkaline Phosphatase (34-104) U/L Total Creatine Kinase (10-223) U/L CK-MB (CK-2) (0.6-6.3) ng/mL Troponin I 0.06 H* (<0.04) ng/mL B-Natriuretic Peptide 1536 H ( - 100) pg/mL Total Protein (6.4-8.9) g/dL Albumin (3.2-5.2) g/dL Globulin (2-4) g/dL Albumin/Globulin Ratio (1-3) TSH (0.34-5.60) mcIU/mL Urine Color Urine Appearance Urine pH (5-9) Ur Specific Evans (1.010-1.030) Urine Protein (Negative) Urine Ketones (Negative) Urine Blood (Negative) Urine Nitrate (Negative) Urine Bilirubin (Negative) Urine Urobilinogen (Negative) Ur Leukocyte Esterase (Negative) Urine WBC (Auto) (Absent) Urine RBC (Auto) (Absent) Ur Squamous Epith Cells (Absent) Urine Bacteria (Absent) Urine Glucose (Negative) Urine Ascorbic Acid (Negative) 06/29/17 06/29/17 06/29/17 Range/Units 05:30 05:30 05:30 WBC 9.0 (3.5-10.8) 10^3/ul RBC 4.49 (4.0-5.4) 10^6/ul Hgb 12.3 (12.0-16.0) g/dl Hct 37 (35-47) % MCV 83 (80-97) fL MCH 27 (27-31) pg MCHC 33 (31-36) g/dl RDW 17 H (10.5-15) % Plt Count 346 (150-450) 10^3/ul MPV 8 (7.4-10.4) um3 Neut % (Auto) (38-83) % Lymph % (Auto) (25-47) % Rush % (Auto) (1-9) % Eos % (Auto) (0-6) % Baso % (Auto) (0-2) % Absolute Neuts (auto) (1.5-7.7) 10^3/ul Absolute Lymphs (auto) (1.0-4.8) 10^3/ul Absolute Monos (auto) (0-0.8) 10^3/ul Absolute Eos (auto) (0-0.6) 10^3/ul Absolute Basos (auto) (0-0.2) 10^3/ul Absolute Nucleated RBC 10^3/ul Nucleated RBC % INR (Anticoag Therapy) 3.50 H (0.89-1.11) APTT (26.0-36.3) seconds Sodium 132 L (133-145) mmol/L Potassium 4.2 (3.5-5.0) mmol/L Chloride 101 (101-111) mmol/L Carbon Dioxide 23 (22-32) mmol/L Anion Gap 8 (2-11) mmol/L BUN 31 H (6-24) mg/dL Creatinine 0.96 H (0.51-0.95) mg/dL Est GFR ( Amer) 70.4 (>60) Est GFR (Non-Af Amer) 54.7 (>60) BUN/Creatinine Ratio 32.3 H (8-20) Glucose 122 H (70-100) mg/dL Lactic Acid (0.5-2.0) mmol/L Calcium 9.0 (8.6-10.3) mg/dL Magnesium (1.9-2.7) mg/dL Total Bilirubin (0.2-1.0) mg/dL AST (13-39) U/L ALT (7-52) U/L Alkaline Phosphatase (34-104) U/L Total Creatine Kinase (10-223) U/L CK-MB (CK-2) (0.6-6.3) ng/mL Troponin I 0.05 H* (<0.04) ng/mL B-Natriuretic Peptide ( - 100) pg/mL Total Protein (6.4-8.9) g/dL Albumin (3.2-5.2) g/dL Globulin (2-4) g/dL Albumin/Globulin Ratio (1-3) TSH (0.34-5.60) mcIU/mL Urine Color Urine Appearance Urine pH (5-9) Ur Specific Evans (1.010-1.030) Urine Protein (Negative) Urine Ketones (Negative) Urine Blood (Negative) Urine Nitrate (Negative) Urine Bilirubin (Negative) Urine Urobilinogen (Negative) Ur Leukocyte Esterase (Negative) Urine WBC (Auto) (Absent) Urine RBC (Auto) (Absent) Ur Squamous Epith Cells (Absent) Urine Bacteria (Absent) Urine Glucose (Negative) Urine Ascorbic Acid (Negative) 06/29/17 Range/Units 07:10 WBC (3.5-10.8) 10^3/ul RBC (4.0-5.4) 10^6/ul Hgb (12.0-16.0) g/dl Hct (35-47) % MCV (80-97) fL MCH (27-31) pg MCHC (31-36) g/dl RDW (10.5-15) % Plt Count (150-450) 10^3/ul MPV (7.4-10.4) um3 Neut % (Auto) (38-83) % Lymph % (Auto) (25-47) % Rush % (Auto) (1-9) % Eos % (Auto) (0-6) % Baso % (Auto) (0-2) % Absolute Neuts (auto) (1.5-7.7) 10^3/ul Absolute Lymphs (auto) (1.0-4.8) 10^3/ul Absolute Monos (auto) (0-0.8) 10^3/ul Absolute Eos (auto) (0-0.6) 10^3/ul Absolute Basos (auto) (0-0.2) 10^3/ul Absolute Nucleated RBC 10^3/ul Nucleated RBC % INR (Anticoag Therapy) (0.89-1.11) APTT (26.0-36.3) seconds Sodium (133-145) mmol/L Potassium (3.5-5.0) mmol/L Chloride (101-111) mmol/L Carbon Dioxide (22-32) mmol/L Anion Gap (2-11) mmol/L BUN (6-24) mg/dL Creatinine (0.51-0.95) mg/dL Est GFR ( Amer) (>60) Est GFR (Non-Af Amer) (>60) BUN/Creatinine Ratio (8-20) Glucose (70-100) mg/dL Lactic Acid (0.5-2.0) mmol/L Calcium (8.6-10.3) mg/dL Magnesium (1.9-2.7) mg/dL Total Bilirubin (0.2-1.0) mg/dL AST (13-39) U/L ALT (7-52) U/L Alkaline Phosphatase (34-104) U/L Total Creatine Kinase (10-223) U/L CK-MB (CK-2) (0.6-6.3) ng/mL Troponin I (<0.04) ng/mL B-Natriuretic Peptide ( - 100) pg/mL Total Protein (6.4-8.9) g/dL Albumin (3.2-5.2) g/dL Globulin (2-4) g/dL Albumin/Globulin Ratio (1-3) TSH (0.34-5.60) mcIU/mL Urine Color Roseanna Urine Appearance Cloudy Urine pH 5.0 (5-9) Ur Specific Evans 1.029 (1.010-1.030) Urine Protein 2+(100 mg/dl) H (Negative) Urine Ketones Trace H (Negative) Urine Blood 2+ H (Negative) Urine Nitrate Negative (Negative) Urine Bilirubin Negative (Negative) Urine Urobilinogen Negative (Negative) Ur Leukocyte Esterase 2+ H (Negative) Urine WBC (Auto) 3+(>20/hpf) H (Absent) Urine RBC (Auto) Absent (Absent) Ur Squamous Epith Cells Present H (Absent) Urine Bacteria 3+ H (Absent) Urine Glucose Negative (Negative) Urine Ascorbic Acid * H (Negative) 06/28/17 06/28/17 06/28/17 20:45 20:45 20:45 WBC 10.9 H RBC 4.67 Hgb 12.5 Hct 38 MCV 82 MCH 27 MCHC 33 RDW 17 H Plt Count 394 MPV 8 Neut % (Auto) 74.4 Lymph % (Auto) 15.2 L Rush % (Auto) 8.2 Eos % (Auto) 1.5 Baso % (Auto) 0.7 Absolute Neuts (auto) 8.1 H Absolute Lymphs (auto) 1.7 Absolute Monos (auto) 0.9 H Absolute Eos (auto) 0.2 Absolute Basos (auto) 0.1 Absolute Nucleated RBC 0 Nucleated RBC % 0 INR (Anticoag Therapy) 3.49 H APTT 41.4 H Sodium 131 L Potassium 4.1 Chloride 101 Carbon Dioxide 21 L Anion Gap 9 BUN 31 H Creatinine 1.01 H Est GFR ( Amer) 66.4 Est GFR (Non-Af Amer) 51.6 BUN/Creatinine Ratio 30.7 H Glucose 122 H Lactic Acid Calcium 9.3 Magnesium 2.1 Total Bilirubin 0.60 AST 34 ALT 27 Alkaline Phosphatase 58 Total Creatine Kinase 45 CK-MB (CK-2) 2.5 Troponin I 0.06 H* B-Natriuretic Peptide Total Protein 7.5 Albumin 3.7 Globulin 3.8 Albumin/Globulin Ratio 1.0 TSH 9.16 H Urine Color Urine Appearance Urine pH Ur Specific Evans Urine Protein Urine Ketones Urine Blood Urine Nitrate Urine Bilirubin Urine Urobilinogen Ur Leukocyte Esterase Urine WBC (Auto) Urine RBC (Auto) Ur Squamous Epith Cells Urine Bacteria Urine Glucose Urine Ascorbic Acid 06/28/17 06/28/17 06/29/17 20:45 20:45 00:37 WBC RBC Hgb Hct MCV MCH MCHC RDW Plt Count MPV Neut % (Auto) Lymph % (Auto) Rush % (Auto) Eos % (Auto) Baso % (Auto) Absolute Neuts (auto) Absolute Lymphs (auto) Absolute Monos (auto) Absolute Eos (auto) Absolute Basos (auto) Absolute Nucleated RBC Nucleated RBC % INR (Anticoag Therapy) APTT Sodium Potassium Chloride Carbon Dioxide Anion Gap BUN Creatinine Est GFR ( Amer) Est GFR (Non-Af Amer) BUN/Creatinine Ratio Glucose Lactic Acid 1.3 Calcium Magnesium Total Bilirubin AST ALT Alkaline Phosphatase Total Creatine Kinase CK-MB (CK-2) Troponin I 0.06 H* B-Natriuretic Peptide 1536 H Total Protein Albumin Globulin Albumin/Globulin Ratio TSH Urine Color Urine Appearance Urine pH Ur Specific Evans Urine Protein Urine Ketones Urine Blood Urine Nitrate Urine Bilirubin Urine Urobilinogen Ur Leukocyte Esterase Urine WBC (Auto) Urine RBC (Auto) Ur Squamous Epith Cells Urine Bacteria Urine Glucose Urine Ascorbic Acid 06/29/17 06/29/17 06/29/17 05:30 05:30 05:30 WBC 9.0 RBC 4.49 Hgb 12.3 Hct 37 MCV 83 MCH 27 MCHC 33 RDW 17 H Plt Count 346 MPV 8 Neut % (Auto) Lymph % (Auto) Rush % (Auto) Eos % (Auto) Baso % (Auto) Absolute Neuts (auto) Absolute Lymphs (auto) Absolute Monos (auto) Absolute Eos (auto) Absolute Basos (auto) Absolute Nucleated RBC Nucleated RBC % INR (Anticoag Therapy) 3.50 H APTT Sodium 132 L Potassium 4.2 Chloride 101 Carbon Dioxide 23 Anion Gap 8 BUN 31 H Creatinine 0.96 H Est GFR ( Amer) 70.4 Est GFR (Non-Af Amer) 54.7 BUN/Creatinine Ratio 32.3 H Glucose 122 H Lactic Acid Calcium 9.0 Magnesium Total Bilirubin AST ALT Alkaline Phosphatase Total Creatine Kinase CK-MB (CK-2) Troponin I 0.05 H* B-Natriuretic Peptide Total Protein Albumin Globulin Albumin/Globulin Ratio TSH Urine Color Urine Appearance Urine pH Ur Specific Evans Urine Protein Urine Ketones Urine Blood Urine Nitrate Urine Bilirubin Urine Urobilinogen Ur Leukocyte Esterase Urine WBC (Auto) Urine RBC (Auto) Ur Squamous Epith Cells Urine Bacteria Urine Glucose Urine Ascorbic Acid 06/29/17 06/30/17 06/30/17 07:10 04:43 04:43 WBC 8.9 RBC 4.69 Hgb 12.6 Hct 39 MCV 83 MCH 27 MCHC 33 RDW 17 H Plt Count 363 MPV 8 Neut % (Auto) 72.2 Lymph % (Auto) 14.2 L Rush % (Auto) 11.1 H Eos % (Auto) 1.9 Baso % (Auto) 0.6 Absolute Neuts (auto) 6.4 Absolute Lymphs (auto) 1.3 Absolute Monos (auto) 1.0 H Absolute Eos (auto) 0.2 Absolute Basos (auto) 0 Absolute Nucleated RBC 0.01 Nucleated RBC % 0.1 INR (Anticoag Therapy) 4.14 H APTT Sodium Potassium Chloride Carbon Dioxide Anion Gap BUN Creatinine Est GFR ( Amer) Est GFR (Non-Af Amer) BUN/Creatinine Ratio Glucose Lactic Acid Calcium Magnesium Total Bilirubin AST ALT Alkaline Phosphatase Total Creatine Kinase CK-MB (CK-2) Troponin I B-Natriuretic Peptide Total Protein Albumin Globulin Albumin/Globulin Ratio TSH Urine Color Roseanna Urine Appearance Cloudy Urine pH 5.0 Ur Specific Evans 1.029 Urine Protein 2+(100 mg/dl) H Urine Ketones Trace H Urine Blood 2+ H Urine Nitrate Negative Urine Bilirubin Negative Urine Urobilinogen Negative Ur Leukocyte Esterase 2+ H Urine WBC (Auto) 3+(>20/hpf) H Urine RBC (Auto) Absent Ur Squamous Epith Cells Present H Urine Bacteria 3+ H Urine Glucose Negative Urine Ascorbic Acid * H 06/30/17 04:43 WBC RBC Hgb Hct MCV MCH MCHC RDW Plt Count MPV Neut % (Auto) Lymph % (Auto) Rush % (Auto) Eos % (Auto) Baso % (Auto) Absolute Neuts (auto) Absolute Lymphs (auto) Absolute Monos (auto) Absolute Eos (auto) Absolute Basos (auto) Absolute Nucleated RBC Nucleated RBC % INR (Anticoag Therapy) APTT Sodium 131 L Potassium 4.1 Chloride 99 L Carbon Dioxide 24 Anion Gap 8 BUN 38 H Creatinine 1.25 H Est GFR ( Amer) 51.9 Est GFR (Non-Af Amer) 40.4 BUN/Creatinine Ratio 30.4 H Glucose 123 H Lactic Acid Calcium 9.4 Magnesium Total Bilirubin AST ALT Alkaline Phosphatase Total Creatine Kinase CK-MB (CK-2) Troponin I B-Natriuretic Peptide Total Protein Albumin Globulin Albumin/Globulin Ratio TSH Urine Color Urine Appearance Urine pH Ur Specific Evans Urine Protein Urine Ketones Urine Blood Urine Nitrate Urine Bilirubin Urine Urobilinogen Ur Leukocyte Esterase Urine WBC (Auto) Urine RBC (Auto) Ur Squamous Epith Cells Urine Bacteria Urine Glucose Urine Ascorbic Acid 06/28/17 06/28/17 06/28/17 20:45 20:45 20:45 WBC 10.9 H RBC 4.67 Hgb 12.5 Hct 38 MCV 82 MCH 27 MCHC 33 RDW 17 H Plt Count 394 MPV 8 Neut % (Auto) 74.4 Lymph % (Auto) 15.2 L Rush % (Auto) 8.2 Eos % (Auto) 1.5 Baso % (Auto) 0.7 Absolute Neuts (auto) 8.1 H Absolute Lymphs (auto) 1.7 Absolute Monos (auto) 0.9 H Absolute Eos (auto) 0.2 Absolute Basos (auto) 0.1 Absolute Nucleated RBC 0 Nucleated RBC % 0 INR (Anticoag Therapy) 3.49 H APTT 41.4 H Sodium 131 L Potassium 4.1 Chloride 101 Carbon Dioxide 21 L Anion Gap 9 BUN 31 H Creatinine 1.01 H Est GFR ( Amer) 66.4 Est GFR (Non-Af Amer) 51.6 BUN/Creatinine Ratio 30.7 H Glucose 122 H Lactic Acid Calcium 9.3 Magnesium 2.1 Total Bilirubin 0.60 AST 34 ALT 27 Alkaline Phosphatase 58 Total Creatine Kinase 45 CK-MB (CK-2) 2.5 Troponin I 0.06 H* B-Natriuretic Peptide Total Protein 7.5 Albumin 3.7 Globulin 3.8 Albumin/Globulin Ratio 1.0 TSH 9.16 H Urine Color Urine Appearance Urine pH Ur Specific Evans Urine Protein Urine Ketones Urine Blood Urine Nitrate Urine Bilirubin Urine Urobilinogen Ur Leukocyte Esterase Urine WBC (Auto) Urine RBC (Auto) Ur Squamous Epith Cells Urine Bacteria Urine Glucose Urine Ascorbic Acid 06/28/17 06/28/17 06/29/17 20:45 20:45 00:37 WBC RBC Hgb Hct MCV MCH MCHC RDW Plt Count MPV Neut % (Auto) Lymph % (Auto) Rush % (Auto) Eos % (Auto) Baso % (Auto) Absolute Neuts (auto) Absolute Lymphs (auto) Absolute Monos (auto) Absolute Eos (auto) Absolute Basos (auto) Absolute Nucleated RBC Nucleated RBC % INR (Anticoag Therapy) APTT Sodium Potassium Chloride Carbon Dioxide Anion Gap BUN Creatinine Est GFR ( Amer) Est GFR (Non-Af Amer) BUN/Creatinine Ratio Glucose Lactic Acid 1.3 Calcium Magnesium Total Bilirubin AST ALT Alkaline Phosphatase Total Creatine Kinase CK-MB (CK-2) Troponin I 0.06 H* B-Natriuretic Peptide 1536 H Total Protein Albumin Globulin Albumin/Globulin Ratio TSH Urine Color Urine Appearance Urine pH Ur Specific Evans Urine Protein Urine Ketones Urine Blood Urine Nitrate Urine Bilirubin Urine Urobilinogen Ur Leukocyte Esterase Urine WBC (Auto) Urine RBC (Auto) Ur Squamous Epith Cells Urine Bacteria Urine Glucose Urine Ascorbic Acid 06/29/17 06/29/17 06/29/17 05:30 05:30 05:30 WBC 9.0 RBC 4.49 Hgb 12.3 Hct 37 MCV 83 MCH 27 MCHC 33 RDW 17 H Plt Count 346 MPV 8 Neut % (Auto) Lymph % (Auto) Rush % (Auto) Eos % (Auto) Baso % (Auto) Absolute Neuts (auto) Absolute Lymphs (auto) Absolute Monos (auto) Absolute Eos (auto) Absolute Basos (auto) Absolute Nucleated RBC Nucleated RBC % INR (Anticoag Therapy) 3.50 H APTT Sodium 132 L Potassium 4.2 Chloride 101 Carbon Dioxide 23 Anion Gap 8 BUN 31 H Creatinine 0.96 H Est GFR ( Amer) 70.4 Est GFR (Non-Af Amer) 54.7 BUN/Creatinine Ratio 32.3 H Glucose 122 H Lactic Acid Calcium 9.0 Magnesium Total Bilirubin AST ALT Alkaline Phosphatase Total Creatine Kinase CK-MB (CK-2) Troponin I 0.05 H* B-Natriuretic Peptide Total Protein Albumin Globulin Albumin/Globulin Ratio TSH Urine Color Urine Appearance Urine pH Ur Specific Evans Urine Protein Urine Ketones Urine Blood Urine Nitrate Urine Bilirubin Urine Urobilinogen Ur Leukocyte Esterase Urine WBC (Auto) Urine RBC (Auto) Ur Squamous Epith Cells Urine Bacteria Urine Glucose Urine Ascorbic Acid 06/29/17 06/30/17 06/30/17 07:10 04:43 04:43 WBC 8.9 RBC 4.69 Hgb 12.6 Hct 39 MCV 83 MCH 27 MCHC 33 RDW 17 H Plt Count 363 MPV 8 Neut % (Auto) 72.2 Lymph % (Auto) 14.2 L Rush % (Auto) 11.1 H Eos % (Auto) 1.9 Baso % (Auto) 0.6 Absolute Neuts (auto) 6.4 Absolute Lymphs (auto) 1.3 Absolute Monos (auto) 1.0 H Absolute Eos (auto) 0.2 Absolute Basos (auto) 0 Absolute Nucleated RBC 0.01 Nucleated RBC % 0.1 INR (Anticoag Therapy) 4.14 H APTT Sodium Potassium Chloride Carbon Dioxide Anion Gap BUN Creatinine Est GFR ( Amer) Est GFR (Non-Af Amer) BUN/Creatinine Ratio Glucose Lactic Acid Calcium Magnesium Total Bilirubin AST ALT Alkaline Phosphatase Total Creatine Kinase CK-MB (CK-2) Troponin I B-Natriuretic Peptide Total Protein Albumin Globulin Albumin/Globulin Ratio TSH Urine Color Roseanna Urine Appearance Cloudy Urine pH 5.0 Ur Specific Evans 1.029 Urine Protein 2+(100 mg/dl) H Urine Ketones Trace H Urine Blood 2+ H Urine Nitrate Negative Urine Bilirubin Negative Urine Urobilinogen Negative Ur Leukocyte Esterase 2+ H Urine WBC (Auto) 3+(>20/hpf) H Urine RBC (Auto) Absent Ur Squamous Epith Cells Present H Urine Bacteria 3+ H Urine Glucose Negative Urine Ascorbic Acid * H 06/30/17 07/01/17 07/01/17 04:43 10:02 10:02 WBC 10.7 RBC 4.87 Hgb 13.1 Hct 41 MCV 84 MCH 27 MCHC 32 RDW 17 H Plt Count 393 MPV 8 Neut % (Auto) 79.9 Lymph % (Auto) 10.9 L Rush % (Auto) 7.2 Eos % (Auto) 1.1 Baso % (Auto) 0.9 Absolute Neuts (auto) 8.6 H Absolute Lymphs (auto) 1.2 Absolute Monos (auto) 0.8 Absolute Eos (auto) 0.1 Absolute Basos (auto) 0.1 Absolute Nucleated RBC 0.01 Nucleated RBC % 0.1 INR (Anticoag Therapy) 2.84 H APTT Sodium 131 L Potassium 4.1 Chloride 99 L Carbon Dioxide 24 Anion Gap 8 BUN 38 H Creatinine 1.25 H Est GFR ( Amer) 51.9 Est GFR (Non-Af Amer) 40.4 BUN/Creatinine Ratio 30.4 H Glucose 123 H Lactic Acid Calcium 9.4 Magnesium Total Bilirubin AST ALT Alkaline Phosphatase Total Creatine Kinase CK-MB (CK-2) Troponin I B-Natriuretic Peptide Total Protein Albumin Globulin Albumin/Globulin Ratio TSH Urine Color Urine Appearance Urine pH Ur Specific Evans Urine Protein Urine Ketones Urine Blood Urine Nitrate Urine Bilirubin Urine Urobilinogen Ur Leukocyte Esterase Urine WBC (Auto) Urine RBC (Auto) Ur Squamous Epith Cells Urine Bacteria Urine Glucose Urine Ascorbic Acid 07/01/17 10:02 WBC RBC Hgb Hct MCV MCH MCHC RDW Plt Count MPV Neut % (Auto) Lymph % (Auto) Rush % (Auto) Eos % (Auto) Baso % (Auto) Absolute Neuts (auto) Absolute Lymphs (auto) Absolute Monos (auto) Absolute Eos (auto) Absolute Basos (auto) Absolute Nucleated RBC Nucleated RBC % INR (Anticoag Therapy) APTT Sodium 128 L Potassium 4.7 Chloride 98 L Carbon Dioxide 23 Anion Gap 7 BUN 38 H Creatinine 1.31 H Est GFR ( Amer) 49.2 Est GFR (Non-Af Amer) 38.2 BUN/Creatinine Ratio 29.0 H Glucose 192 H Lactic Acid Calcium 9.4 Magnesium Total Bilirubin AST ALT Alkaline Phosphatase Total Creatine Kinase CK-MB (CK-2) Troponin I B-Natriuretic Peptide Total Protein Albumin Globulin Albumin/Globulin Ratio TSH Urine Color Urine Appearance Urine pH Ur Specific Evans Urine Protein Urine Ketones Urine Blood Urine Nitrate Urine Bilirubin Urine Urobilinogen Ur Leukocyte Esterase Urine WBC (Auto) Urine RBC (Auto) Ur Squamous Epith Cells Urine Bacteria Urine Glucose Urine Ascorbic Acid 06/30/17 06/30/17 06/30/17 04:43 04:43 04:43 WBC 8.9 RBC 4.69 Hgb 12.6 Hct 39 MCV 83 MCH 27 MCHC 33 RDW 17 H Plt Count 363 MPV 8 Neut % (Auto) 72.2 Lymph % (Auto) 14.2 L Rush % (Auto) 11.1 H Eos % (Auto) 1.9 Baso % (Auto) 0.6 Absolute Neuts (auto) 6.4 Absolute Lymphs (auto) 1.3 Absolute Monos (auto) 1.0 H Absolute Eos (auto) 0.2 Absolute Basos (auto) 0 Absolute Nucleated RBC 0.01 Nucleated RBC % 0.1 INR (Anticoag Therapy) 4.14 H Sodium 131 L Potassium 4.1 Chloride 99 L Carbon Dioxide 24 Anion Gap 8 BUN 38 H Creatinine 1.25 H Est GFR ( Amer) 51.9 Est GFR (Non-Af Amer) 40.4 BUN/Creatinine Ratio 30.4 H Glucose 123 H Calcium 9.4 C-Reactive Protein Urine Color Urine Appearance Urine pH Ur Specific Evans Urine Protein Urine Ketones Urine Blood Urine Nitrate Urine Bilirubin Urine Urobilinogen Ur Leukocyte Esterase Urine WBC (Auto) Urine RBC (Auto) Ur Squamous Epith Cells Urine Bacteria Hyaline Casts Urine Glucose Urine Ascorbic Acid 07/01/17 07/01/17 07/01/17 10:02 10:02 10:02 WBC 10.7 RBC 4.87 Hgb 13.1 Hct 41 MCV 84 MCH 27 MCHC 32 RDW 17 H Plt Count 393 MPV 8 Neut % (Auto) 79.9 Lymph % (Auto) 10.9 L Rush % (Auto) 7.2 Eos % (Auto) 1.1 Baso % (Auto) 0.9 Absolute Neuts (auto) 8.6 H Absolute Lymphs (auto) 1.2 Absolute Monos (auto) 0.8 Absolute Eos (auto) 0.1 Absolute Basos (auto) 0.1 Absolute Nucleated RBC 0.01 Nucleated RBC % 0.1 INR (Anticoag Therapy) 2.84 H Sodium 128 L Potassium 4.7 Chloride 98 L Carbon Dioxide 23 Anion Gap 7 BUN 38 H Creatinine 1.31 H Est GFR ( Amer) 49.2 Est GFR (Non-Af Amer) 38.2 BUN/Creatinine Ratio 29.0 H Glucose 192 H Calcium 9.4 C-Reactive Protein Urine Color Urine Appearance Urine pH Ur Specific Evans Urine Protein Urine Ketones Urine Blood Urine Nitrate Urine Bilirubin Urine Urobilinogen Ur Leukocyte Esterase Urine WBC (Auto) Urine RBC (Auto) Ur Squamous Epith Cells Urine Bacteria Hyaline Casts Urine Glucose Urine Ascorbic Acid 07/01/17 07/02/17 07/02/17 22:15 04:29 04:29 WBC 9.9 RBC 4.52 Hgb 12.1 Hct 38 MCV 84 MCH 27 MCHC 32 RDW 17 H Plt Count 366 MPV 8 Neut % (Auto) 65.4 Lymph % (Auto) 18.8 L Rush % (Auto) 12.4 H Eos % (Auto) 2.6 Baso % (Auto) 0.8 Absolute Neuts (auto) 6.4 Absolute Lymphs (auto) 1.9 Absolute Monos (auto) 1.2 H Absolute Eos (auto) 0.3 Absolute Basos (auto) 0.1 Absolute Nucleated RBC 0.01 Nucleated RBC % 0.2 INR (Anticoag Therapy) Sodium 130 L Potassium 4.5 Chloride 103 Carbon Dioxide 22 Anion Gap 5 BUN 39 H Creatinine 1.14 H Est GFR ( Amer) 57.7 Est GFR (Non-Af Amer) 44.9 BUN/Creatinine Ratio 34.2 H Glucose 148 H Calcium 8.7 C-Reactive Protein 44.35 H Urine Color Yellow Urine Appearance Turbid Urine pH 5.0 Ur Specific Evans 1.026 Urine Protein 2+(100 mg/dl) H Urine Ketones Negative Urine Blood 1+ H Urine Nitrate Negative Urine Bilirubin Negative Urine Urobilinogen Negative Ur Leukocyte Esterase Trace H Urine WBC (Auto) 3+(>20/hpf) H Urine RBC (Auto) 2+(6-10/hpf) H Ur Squamous Epith Cells Present H Urine Bacteria 2+ H Hyaline Casts Present H Urine Glucose Negative Urine Ascorbic Acid * H 07/02/17 04:29 WBC RBC Hgb Hct MCV MCH MCHC RDW Plt Count MPV Neut % (Auto) Lymph % (Auto) Rush % (Auto) Eos % (Auto) Baso % (Auto) Absolute Neuts (auto) Absolute Lymphs (auto) Absolute Monos (auto) Absolute Eos (auto) Absolute Basos (auto) Absolute Nucleated RBC Nucleated RBC % INR (Anticoag Therapy) 2.06 H Sodium Potassium Chloride Carbon Dioxide Anion Gap BUN Creatinine Est GFR ( Amer) Est GFR (Non-Af Amer) BUN/Creatinine Ratio Glucose Calcium C-Reactive Protein Urine Color Urine Appearance Urine pH Ur Specific Evans Urine Protein Urine Ketones Urine Blood Urine Nitrate Urine Bilirubin Urine Urobilinogen Ur Leukocyte Esterase Urine WBC (Auto) Urine RBC (Auto) Ur Squamous Epith Cells Urine Bacteria Hyaline Casts Urine Glucose Urine Ascorbic Acid Laboratory Results - last 24 hr 07/01/17 07/02/17 07/02/17 22:15 04:29 04:29 WBC 9.9 RBC 4.52 Hgb 12.1 Hct 38 MCV 84 MCH 27 MCHC 32 RDW 17 H Plt Count 366 MPV 8 Neut % (Auto) 65.4 Lymph % (Auto) 18.8 L Rush % (Auto) 12.4 H Eos % (Auto) 2.6 Baso % (Auto) 0.8 Absolute Neuts (auto) 6.4 Absolute Lymphs (auto) 1.9 Absolute Monos (auto) 1.2 H Absolute Eos (auto) 0.3 Absolute Basos (auto) 0.1 Absolute Nucleated RBC 0.01 Nucleated RBC % 0.2 INR (Anticoag Therapy) Sodium 130 L Potassium 4.5 Chloride 103 Carbon Dioxide 22 Anion Gap 5 BUN 39 H Creatinine 1.14 H Est GFR ( Amer) 57.7 Est GFR (Non-Af Amer) 44.9 BUN/Creatinine Ratio 34.2 H Glucose 148 H Calcium 8.7 C-Reactive Protein 44.35 H Urine Color Yellow Urine Appearance Turbid Urine pH 5.0 Ur Specific Evans 1.026 Urine Protein 2+(100 mg/dl) H Urine Ketones Negative Urine Blood 1+ H Urine Nitrate Negative Urine Bilirubin Negative Urine Urobilinogen Negative Ur Leukocyte Esterase Trace H Urine WBC (Auto) 3+(>20/hpf) H Urine RBC (Auto) 2+(6-10/hpf) H Ur Squamous Epith Cells Present H Urine Bacteria 2+ H Hyaline Casts Present H Urine Glucose Negative Urine Ascorbic Acid * H 07/02/17 04:29 WBC RBC Hgb Hct MCV MCH MCHC RDW Plt Count MPV Neut % (Auto) Lymph % (Auto) Rush % (Auto) Eos % (Auto) Baso % (Auto) Absolute Neuts (auto) Absolute Lymphs (auto) Absolute Monos (auto) Absolute Eos (auto) Absolute Basos (auto) Absolute Nucleated RBC Nucleated RBC % INR (Anticoag Therapy) 2.06 H Sodium Potassium Chloride Carbon Dioxide Anion Gap BUN Creatinine Est GFR ( Amer) Est GFR (Non-Af Amer) BUN/Creatinine Ratio Glucose Calcium C-Reactive Protein Urine Color Urine Appearance Urine pH Ur Specific Evans Urine Protein Urine Ketones Urine Blood Urine Nitrate Urine Bilirubin Urine Urobilinogen Ur Leukocyte Esterase Urine WBC (Auto) Urine RBC (Auto) Ur Squamous Epith Cells Urine Bacteria Hyaline Casts Urine Glucose Urine Ascorbic Acid Assess/Plan/Problems-Billing Assessment: Ms. Law is an 87 yo female with a PMH of PAF, BrCa, pulm HTN, HTN, and orthostasis who presented to the ED on 06/28 with concern for afib with RVR. - Patient Problems (1) Atrial fibrillation Current Visit: Yes Status: Chronic Priority: High Code(s): I48.91 - UNSPECIFIED ATRIAL FIBRILLATION SNOMED Code(s): 71595268 Comment: With RVR, sustaining in 100-110 range. No PRN metoprolol given. Increased Cardizem given. Gave 25 Metoprolol XL in addition to daily dose. Will increase to 50 for tomorrow. Continue on Metoprolol and Cardizem Echo and EKG ordered to assess for CHF related to prolonged tachycardia. Utilize prn metoprolol for sustained HR >/= 120s INR in therapeutic range, will resume at previous dose. (2) Acute kidney injury Current Visit: Yes Status: Acute Code(s): N17.9 - ACUTE KIDNEY FAILURE, UNSPECIFIED SNOMED Code(s): 95762747 Comment: BUN and Creatinine improved overnight after fluids. Patient developed rales and increased edema. Will hold additional fluids at this time. Continue to trend (3) Urinary tract infection Current Visit: Yes Status: Acute Comment: Cefriaxone 1gm Q24hr. Pending repeat culture. Patient asymptomatic. CRP 44.35 consistent with active infection. Will continue to trend daily. (4) Anxiety Current Visit: Yes Status: Chronic Code(s): F41.9 - ANXIETY DISORDER, UNSPECIFIED SNOMED Code(s): 33343065 Comment: Anxiety controlled with 2 doses ativan with good effect. Patient on home Prozac for anxiety. Prescribed Ativan .5mg IV PRN. (5) DVT prophylaxis Current Visit: No Status: Acute Code(s): REU6242 - SNOMED Code(s): 947961681 Comment: Warfarin INR is therapeutic, will resume coumadin. Encourage ambulation. INR daily (6) Generalized weakness Current Visit: No Status: Acute Code(s): R53.1 - WEAKNESS SNOMED Code(s): 44120142 Comment: May be due to dehydration, UTI, Afib with RVR and possible deconditioning. Patient seeing PT/OT. Patient does not feel safe going home in current condition , [facility] will accept her into SNF when discharged. (7) DNR (do not resuscitate) Current Visit: No Status: Acute Status and Disposition: Inpatient admit. Dc to [facility] when medically stable.
--- NOTE | 2017-07-02 17:20 | ECHO ---
Patient: ANITRA REYES [facility] Rec#: [id number] : 1930 Date: 07/02/2017 Age: 87y Height: 162.56 cm / 64.0 in Weight: 73.48 kg / 161.9 lbs Sex: F BSA: 1.79 Room#: [facility] Admit Date#: 06/29/2017 Type: Inpatient Referring: Jony Lester MD Reading: Kenn Dolan MD Radiator Fitter: Cassie EnriqueNIMA CC: Ervin Kamara MD Transthoracic Echocardiogram Indication: A-fib, CHF BP: 130/96 HR: 125 Rhythm: Paced Findings History: HTN, pulmonary HTN, A-fib, pacer, TIA, breast cancer s/p mastectomy. Technical Comments: The study quality is fair. The study is technically limited due to patient body habitus. Completed at 1454. Left Ventricle: The left ventricular chamber size is normal. Mild concentric left ventricular hypertrophy is observed. There is global hypokinesis of the left ventricle with minor regional variation. There is moderately decreased left ventricular systolic function. The estimated ejection fraction is 35-40%. There is septal flattening of the interventricular septum consistent with right ventricular volume or pressure overload. There is abnormal ventricular septal wall motion consistent with right ventricular pacemaker. The assessment of diastolic function is non-diagnostic. Left Atrium: The left atrium is severely dilated. Right Ventricle: The right ventricle is moderately dilated. The right ventricular global systolic function is mildly reduced. A pacemaker wire is visualized in the right ventricle. Right Atrium: The right atrium is moderately dilated. A pacemaker wire is visualized in the right atrium. Aortic Valve: The aortic valve is trileaflet. Mild aortic leaflet calcification is visualized. There is mild aortic regurgitation. There is mild aortic stenosis. Mitral Valve: There is mitral annular calcification. The mitral valve leaflets are moderately thickened. There is mild to moderate mitral regurgitation. There is no evidence of mitral stenosis. Tricuspid Valve: The tricuspid valve leaflets are mildly thickened. There is moderate to severe tricuspid regurgitation. The right ventricular systolic pressure is estimated at 57 mmHg. There is evidence of moderate pulmonary hypertension. There is no tricuspid stenosis. Pulmonic Valve: The pulmonic valve appears normal. There is mild pulmonic regurgitation. There is no pulmonic stenosis. Pericardium: There is no significant pericardial effusion. A pericardial fat pad is visualized. Aorta: There is mild dilatation of the ascending aorta. There is no dilatation of the aortic arch. The aortic root is normal in size. Pulmonary Artery: The main pulmonary artery is not well visualized. Venous: The inferior vena cava is dilated. There is less than 50% respiratory change in the inferior vena cava dimension. Hepatic vein systolic flow is reversed. Summary: There are changes noted when compared to the previous study done on 11/05/2016, LV EF is at least moderately reduced now from 55-60% then. LA is severely dilated now from normal in size then. PHTN is stable. Mild increase in TR now. MR is stable. Conclusions The study is technically limited due to patient body habitus. Completed at 1454. Mild concentric left ventricular hypertrophy is observed. There is global hypokinesis of the left ventricle with minor regional variation. There is moderately decreased left ventricular systolic function. The estimated ejection fraction is 35-40%. There is septal flattening of the interventricular septum consistent with right ventricular volume or pressure overload. The assessment of diastolic function is non-diagnostic. The left atrium is severely dilated. A pacemaker wire is visualized in the right ventricle. A pacemaker wire is visualized in the right atrium. The right atrium is moderately dilated. There is mild aortic regurgitation. There is mild to moderate mitral regurgitation. There is moderate to severe tricuspid regurgitation. The right ventricular systolic pressure is estimated at 57 mmHg. There is evidence of moderate pulmonary hypertension. There is mild pulmonic regurgitation. There is mild dilatation of the ascending aorta. There are changes noted when compared to the previous study done on 11/05/2016, LV EF is at least moderately reduced now from 55-60% then. LA is severely dilated now from normal in size then. PHTN is stable. Mild increase in TR now. MR is stable. Measurements Name Value Normal Range RVIDd (AP) 2D 3.4 cm (0.9 - 2.6) RVDdMajor (2D) 5.6 cm (2.2 - 4.4) RAd ISD 4CH 5.8 cm (3.4 - 4.9) RA (A4C)W 4.6 cm (2.9 - 4.6) IVSd (2D) 1.1 cm (0.6 - 1) LVPWd (2D) 1.1 cm (0.6 - 1) LVIDd (2D) 4.2 cm (3.6 - 5.4) LVIDs (2D) 3.1 cm - LV FS (2D) 26 % (25 - 45) Aortic Annulus 1.6 cm (1.4 - 2.6) Ao root diameter (2D) 3 cm (2.1 - 3.5) Ascending Ao 3.5 cm (2.1 - 3.4) Aortic arch 2.9 cm (1.8 - 3.4) LA dimension (AP) 2D 4.1 cm (2.3 - 3.8) LAd ISD 4CH 5.6 cm (2.9 - 5.3) LA ISD 4CH W 4.7 cm (2.5 - 4.5) Name Value Normal Range LA ESV SP 4CH (A/L) 92 ml - LA ESV SP 2CH (A/L) 95 ml - LA ESV BP (A/L) 97 ml - LA ESV BP (A/L) index 54 ml/m2 - LA ESV SP 4CH (MOD) 85 ml - LA ESV SP 2CH (MOD) 92 ml - Name Value Normal Range MV E-wave Vmax 0.95 m/sec - MV deceleration time 160.1 msec - LV septal e' Vmax 0.02 m/sec - LV lateral e' Vmax 0.05 m/sec - LV E:e' septal ratio 47.5 ratio - LV E:e' lateral ratio 19 ratio - Name Value Normal Range AV Vmax 1.39 m/sec - AV VTI 21.31 cm - AV peak gradient 7.77 mmHg - AV mean gradient 4.8 mmHg - LVOT diameter 1.9 cm - LVOT Vmax 0.76 m/sec - LVOT VTI 11.45 cm - LVOT peak gradient 2.36 mmHg - LVOT mean gradient 1.2 mmHg - DOI (VTI) 0.54 ratio - HANNAH (continuity Vmax) 1.6 cm2 - HANNAH (continuity VTI) 1.5 cm2 - YAO Vmax 0.27 m/sec - Name Value Normal Range MR flow (PISA) 44.57 ml/sec - MR PISA radius 0.3 cm - Name Value Normal Range TR Vmax 3.05 m/sec - TR peak gradient 37 mmHg - RAP 20 mmHg - RVSP 57 mmHg - IVC diameter 2.7 cm - Name Value Normal Range PV Vmax 0.57 m/sec - PV peak gradient 1.33 mmHg - ME end-diastolic Vmax 1.14 m/sec -
[2017-07-02] MEDS: Warfarin TAB(*) 2.5 MG PO SCH (18:23)
[2017-07-02] MEDS ORDERED: Polyethylene Glycol 3350 BTL* 238 GM BTL PO ONE (18:40)
[2017-07-02] MEDS: CMCS Melatonin (NF) 3 MG TAB PO SCH (20:56)
[2017-07-02] MEDS: Senna TAB PO SCH (20:57)
[2017-07-02] MEDS: Polyethylene Glycol 3350* 17 GM PACKET PO PRN (21:01)
[2017-07-02] MEDS: LORazepam INJ* 2 MG/ML 1 ML VIAL IV PUSH PRN (21:14)
[2017-07-03] MEDS: NS 0.9% 1000 ML* 1,000 ML IV SCH (05:16)
[2017-07-03 06:07] LABS: Hematocrit 39 % (35-47); Hemoglobin 12.2 g/dl (12.0-16.0); Mean Corpuscular HGB Conc 31 g/dl (31-36); Mean Corpuscular Hemoglobin 27 pg (27-31); Mean Corpuscular Volume 85 fL (80-97); Mean Platelet Volume 8 um3 (7.4-10.4); Red Blood Count 4.62 10^6/ul (4.0-5.4); Red Cell Distribution Width 18 % (10.5-15); White Blood Count 11.3 10^3/ul (3.5-10.8)
[2017-07-03 06:29] LABS: BUN/Creatinine Ratio 34.2 (8-20); Calcium 8.3 mg/dL (8.6-10.3); EGFR African American 59.5 (>60); EGFR Non-African American 46.3 (>60); Potassium 4.4 mmol/L (3.5-5.0)
[2017-07-03] MEDS: Polyethylene Glycol 3350* 17 GM PACKET PO PRN (08:20)
[2017-07-03] MEDS: Magnesium Hydroxide LIQ* 30 ML UDC PO PRN ×2 (08:22→16:59)
[2017-07-03] MEDS: Diltiazem CD CAP* 240 MG PO SCH (08:24)
[2017-07-03] MEDS: Metoprolol Succinate XL TAB* 50 MG PO SCH (08:24)
[2017-07-03] MEDS: FLUoxetine CAP* 20 MG PO SCH (08:24)
[2017-07-03] MEDS: Acetaminophen TAB* 325 MG PO PRN ×2 (08:24→16:59)
[2017-07-03] MEDS: CMCS: Anastrozole (NF) 1 MG TAB PO SCH (08:29)
[2017-07-03] MEDS: cefTRIAXone VIAL(*) 1,000 MG in NS 0.9% 50 ML* 50 ML IVPB SCH (09:36)
[2017-07-03] MEDS ORDERED: Digoxin IV* 0.5 MG/2 ML AMP (0.25 MG/ML) IV SLOW PU ONE (12:22)
--- NOTE | 2017-07-03 14:26 | PN ---
Subjective Date of Service: 07/03/17 Interval History: HOSPITALIST PROGRESS NOTE Patient seen and examined at bedside. She feels worse today. States her breathing is more labored, feels very weak and has no appetite. Family History: Unchanged from Admission Social History: Unchanged from Admission Past Medical History: Unchanged from Admission Objective Active Medications: Acetaminophen (Tylenol Supp*) 650 mg MO Q6H PRN PRN Reason: FEVER/PAIN Acetaminophen (Tylenol Tab*) 650 mg PO Q6H PRN PRN Reason: PAIN Last Admin: 07/03/17 08:24 Dose: 650 mg Anastrozole (Arimidex (Nf)) 1 mg PO QAM [facility] Last Admin: 07/03/17 08:29 Dose: 1 mg Bisacodyl (Dulcolax Supp*) 10 mg MO QPM PRN PRN Reason: CONSTIPATION Fluoxetine HCl (Prozac Cap*) 40 mg PO DAILY [facility] Last Admin: 07/03/17 08:24 Dose: 40 mg Ceftriaxone Sodium 1,000 mg/ (Sodium Chloride) 50 mls @ 200 mls/hr IVPB Q24H [facility] Last Admin: 07/03/17 09:36 Dose: 200 mls/hr Lorazepam (Ativan Inj*) 0.5 mg IV PUSH Q4H PRN PRN Reason: ANXIETY Last Admin: 07/02/17 21:14 Dose: 0.5 mg Magnesium Hydroxide (Milk Of Magnesia Liq*) 30 ml PO Q6H PRN PRN Reason: CONSTIPATION Last Admin: 07/03/17 08:22 Dose: 30 ml Melatonin (Melatonin (Nf)) 6 mg PO BEDTIME [facility] Last Admin: 07/02/17 20:56 Dose: 6 mg Metoprolol Succinate (Toprol Xl Tab*) 50 mg PO DAILY [facility] Last Admin: 07/03/17 08:24 Dose: 50 mg Metoprolol Tartrate (Lopressor Iv*) 5 mg IV Q6H PRN PRN Reason: HEART RATE/PULSE GREATER THAN: Last Admin: 07/01/17 08:36 Dose: 5 mg Ondansetron HCl (Zofran Inj*) 4 mg IV Q6H PRN PRN Reason: NAUSEA Last Admin: 06/30/17 08:11 Dose: 4 mg Polyethylene Glycol/Electrolytes (Miralax*) 17 gm PO DAILY PRN PRN Reason: CONSTIPATION Last Admin: 07/03/17 08:20 Dose: 17 gm Senna (Senokot Tab*) 2 tab PO BEDTIME [facility] Last Admin: 07/02/17 20:57 Dose: 2 tab Warfarin Sodium (Coumadin Tab(*)) 2.5 mg PO DAILY@1700 [facility] PRN Reason: Protocol Last Admin: 07/02/17 18:23 Dose: 2.5 mg Vital Signs 07/03/17 07/03/17 11:26 12:59 Temperature 97.1 F Pulse Rate 68 80 Respiratory 18 Rate Blood Pressure 123/70 (mmHg) O2 Sat by Pulse 99 Oximetry Oxygen Devices in Use Now: Nasal Cannula Appearance: Elderly lady lying in bed in NAD. Eyes: No Scleral Icterus Ears/Nose/Mouth/Throat: Mucous Membranes Moist Neck: Trachea Midline Respiratory: Symmetrical Chest Expansion and Respiratory Effort, - - BS+ bilaterally with bibasilar rales Cardiovascular: - - Normal S1 and S2, irregularly irregular Abdominal: NL Sounds; No Tenderness; No Distention Extremities: - - Trace bilateral LE naga Neurological: Alert and Oriented x 3, NL Muscle Strength and Tone Lines/Tubes/Other Access: Clean, Dry and Intact Peripheral IV Nutrition: Taking PO's Result Diagrams: 07/03/17 05:45 07/03/17 05:45 Assess/Plan/Problems-Billing Assessment: Mrs. Law is an 87 yo female with a PMH of PAF, Breast CA, pulmonary HTN, HTN , and orthostasis who presented to the ED on 06/28 with c/o dyspnea, weakness foundnd to be in afib with RVR. - Patient Problems (1) Atrial fibrillation Comment: - Better controlled today with HR in the 80s. - Echo showed global hypokinesis of LV with EF 35-40 %. EF was normal in October 2016. - Cardiology consult requested. - Continue metoprolol succinate for rate control, will d/c Cardizem and add digoxin. - INR 1.89 today - continue Warfarin. (2) Systolic CHF Comment: - With mild exacerbation. - D/c IVF and start gentle diuresis. (3) Abnormal finding on urinalysis Comment: - Patient has no urinary complaints and urine culture was negative. - D/c Ceftriaxone. (4) Acute kidney injury Comment: - Suspect acute on top of CKD. - Could not tolerated fluids and still showing signs of fluid overload. (5) Physical deconditioning Comment: - Continue PT. - Plan to go to [facility] on discharge. (6) DVT prophylaxis Comment: - Warfarin and SCDs. (7) DNR (do not resuscitate) Status and Disposition: Inpatient for management of Afib RVR/ CHF exacerbation requiring >48h for stabilization.
[2017-07-03] MEDS ORDERED: Furosemide IV* 10 MG/ML 2 ML VIAL (20 MG) IV SLOW PU ONE (14:31)
[2017-07-03] MEDS ORDERED: LORazepam INJ* 2 MG/ML 1 ML VIAL IV PUSH PRN (14:40)
[2017-07-03] MEDS: Warfarin TAB(*) 2.5 MG PO SCH (17:00)
--- NOTE | 2017-07-03 17:03 | RAD ---
INDICATION: Carotid stenosis COMPARISON: CTA head and neck May 14, 2016 TECHNIQUE: Transverse and longitudinal scans of the carotid and vertebral arteries were performed with jama scale, color Doppler, and spectral Doppler imaging. Stenosis criteria is based on flow velocities that correlate with visual internal carotid artery diameter (NASCET criteria) FINDINGS: Right carotid: There is scant calcific plaque involving the bifurcation. There is no spectral broadening. The peak systolic velocity of the internal carotid artery is 42 cm/s and the peak diastolic velocity 12 cm/s. The ICA/CCA ratio is calculated at 0.9. This corresponds to a less than 50% diameter stenosis. Left carotid: There is scant calcific plaque involving the bifurcation. There is no spectral broadening. The peak systolic velocity of the internal carotid artery is 38 cm/s and the peak diastolic velocity 9 cm/s. The ICA/CCA ratio is calculated at 0.9. This corresponds to a less than 50% diameter stenosis. Right vertebral: There is trace fluid in the right vertebral artery. Doppler tracing could not be obtained. This is likely related to technical factors. The right vertebral artery was noted to be diminutive on the earlier CT angiogram. Left vertebral: Left vertebral waveforms are normal and the flow is antegrade. IMPRESSION: No evidence of a hemodynamically significant stenosis of either carotid artery. Diminutive right vertebral artery. CPT II Codes: 3100F PQRS
--- NOTE | 2017-07-03 20:01 | CONS ---
Dr. Dolan; Dr. Kamara CARDIOLOGY CONSULTATION: DATE OF CONSULT: 07/03/17 REQUESTING PHYSICIAN: Dr. Celaya. REASON FOR CONSULT: Atrial fibrillation, cardiomyopathy. HISTORY OF PRESENT ILLNESS: This is a very pleasant 87-year-old woman who has a longstanding history of paroxysmal atrial fibrillation, hypertension, pulmonary hypertension, who has had atrial fibrillation on and off for approximately 10 years. She has had the last episode about a year ago. She was living independently at [facility] until about October when she had a fall due to balance problems. No loss of consciousness. Since then she has been in assisted living. She says she was getting around until a week ago, but she said she had a marcelino sleep a week ago on and woke up on Thursday, got up to get something from the other section of her room and developed fatigue and weakness, was found to have rapid AFib. There were some adjustments of the medications made, but she has not been able to have improvement in her control with oral meds and she was transferred to the hospital on 06/28/17 for evaluation and treatment. She was found to have UTI, has been treatment for that. She was also found to be in AFib with a rapid ventricular response. She says she feels weak and constipated, but denies any other symptoms. At the time of her admission, she reported shortness of breath, dry heaves, and sweats and feeling as though she was lightheaded and might pass out. Today, she also reports that her left arm is clumsy and her speech is somewhat garbled. She said this has been present since she was admitted. She was treated with IV diltiazem with slowing of her heart rate and felt much better. She was also treated for her UTI. She currently is in atrial fibrillation with heart rates in the 60s and 70s; however, an echocardiogram was performed yesterday, which revealed global hypokinesis with moderately reduced LV function, EF of 35% to 40 %, septal flattening of the interventricular septum, severe left atrial enlargement, RV is moderately dilated, pacemaker wire present, mild aortic stenosis, mild-to- moderate MR, [id number] TR, moderate pulmonary hypertension estimated at 57, mild PI. Compared to the previous study of 11/04 , the EF has dropped from 55% to 60% then, the left atrium has increased in size , mild increase in TR, MR was stable. The patient denies chest pain or shortness of breath. She says she feels weak. She has had no syncope. No fevers, chills, or sweats. No diarrhea. No dysuria. She said she was not aware of urinary tract infection by symptoms. PAST MEDICAL HISTORY: She has a history of TIAs x3 in the past, hypertension, pulmonary hypertension, breast cancer, paroxysmal atrial fibrillation with pacemaker for tachybrady syndrome. She denies diabetes, hyperlipidemia, or tobacco use. PAST SURGICAL HISTORY: Includes breast cancer, status post left mastectomy, approximately in 2013. She also has a history of a pacemaker placed 4 years ago. She had a hysterectomy and left knee surgery. MEDICATIONS: Include: 1. Cardizem 240 mg a day, started yesterday. 2. Metoprolol succinate 50 mg a day q.a.m. 3. Acetaminophen. 4. Arimidex 1 mg q.a.m. 5. Bisacodyl 10 mg q.p.m. p.r.n. 6. Ceftriaxone 50mg/200 mL an hour IV q.24. 7. Fluoxetine 40 mg a day( Prozac). 8. Blank 9. Lorazepam 0.5 mg q.4 p.r.n. anxiety. 10. Milk of magnesia p.r.n. 11. Melatonin 6 mg at bedtime. 12. Polyethylene glycol. 13. Senna. 14. Warfarin. ALLERGIES: Her allergies include LEVAQUIN and NITROFURANTOIN. FAMILY HISTORY: Includes a bother who in the war and another brother is , but no premature coronary disease. SOCIAL HISTORY: She has 3 children. REVIEW OF SYSTEMS: Times 10 was negative except as above. She is hard of hearing and has urinary incontinence. PHYSICAL EXAMINATION: She is a well-developed, well-nourished female, in no apparent distress. Blood pressure 123/70, heart rate in the 60s, O2 sat 99%, axillary temperature 97.1. Atraumatic, normocephalic. JVD approximately 14 cm. Carotids 2+ with a right carotid bruit. Cardiac Exam: S1, S2, with a 2-3/ 6 holosystolic murmur at the left lower sternal border and apex. PMI displaced laterally. Chest was clear. No CVAT. Abdomen: Bowel sounds present. Nontender. Femoral pulses intact without bruits. Distal pulses intact. No edema. Motor strength is 4/5 bilaterally. Deep tendon reflexes 2/4. Alert and oriented x3. DIAGNOSTIC STUDIES/LAB DATA: Include white count of 11.3 from today, up from 9.9 yesterday; hemoglobin of 12.2; hematocrit of 39; platelet count of 347. Sodium of 131, potassium of 4.4, BUN of 38, creatinine of 1.1, calcium low at 8.3. BNP was 754, down from 1536. Echocardiogram as mentioned above. Electrocardiogram from 06/29/17 revealed AFib with a rapid ventricular response and lateral ST-T changes, consider ischemia. In October of 2016, she had sinus rhythm or atrial paced rhythm at 60 with LVH and lateral ST-T changes, slightly less pronounced, but at a slower rate. Her chest x- ray revealed no active cardiopulmonary disease. Venous Dopplers from 06/29/17 were negative for right or left DVT. IMPRESSION: My impression is that Ms. Law has paroxysmal atrial fibrillation now with a prolonged episode of atrial fibrillation and poor control of her ventricular response. She also has what appears to be a newly documented left ventricular dysfunction compared to October. The etiology is unclear. Certainly, she is at risk for tachycardia-induced cardiomyopathy as well as ischemic cardiomyopathy. She does report that she had a cath 3-4 years ago and was told of nonobstructive coronary disease, although that has not been conformed. In any event, given at her age and wishes to avoid any aggressive intervention, she would like to continue with medical therapy only. I suspect that with rate control, we may see some improvement in her left ventricular function. For the time being, I would recommend the followin. We will continue anticoagulation as you are doing. 2. We would consider adding digoxin to allow for better control of her heart rate without excessive blood pressure lowering. 3. We cut back on the Cardizem since this is relatively contraindicated in LV dysfunction and heart failure. 4. We would increase her beta-prosper as tolerated. I have taken the liberty of increasing her from 50 mg in the morning to 50 mg in the morning and 25 mg in the evening. 5. We will try 0.25 mg of digoxin IV now. 6. We will check a digoxin level tomorrow. 7. We will try to maintain her potassium over 4. 8. We will consider adding Aldactone and an SANDEE inhibitor at some point once her heart rate and heart failure, blood pressures have stabilized. [id number]/[facility] #: [id number] addendum: Reviewed with Dr Celaya 9.17 E.[facility] NOBLE HOSPITALBrittnee
[2017-07-03] MEDS: CMCS Melatonin (NF) 3 MG TAB PO SCH (22:29)
[2017-07-03] MEDS: Senna TAB PO SCH (23:00)
[2017-07-04 06:19] LABS: Digoxin 0.7 ng/ml (0.8-2.0)
[2017-07-04 06:20] LABS: BUN/Creatinine Ratio 31.7 (8-20); Calcium 8.4 mg/dL (8.6-10.3); EGFR African American 64.2 (>60); EGFR Non-African American 49.9 (>60); Potassium 4.1 mmol/L (3.5-5.0)
[2017-07-04] MEDS ORDERED: Digoxin IV* 0.5 MG/2 ML AMP (0.25 MG/ML) IV SLOW PU ONE ×2 (06:37→10:35)
[2017-07-04] MEDS: FLUoxetine CAP* 20 MG PO SCH (07:54)
[2017-07-04] MEDS: Metoprolol Succinate XL TAB* 50 MG PO SCH (08:02)
[2017-07-04] MEDS: CMCS: Anastrozole (NF) 1 MG TAB PO SCH (08:03)
[2017-07-04] MEDS: Acetaminophen TAB* 325 MG PO PRN (08:03)
--- NOTE | 2017-07-04 09:57 | PN ---
Subjective Date of Service: 07/04/17 Interval History: HOSPITALIST PROGRESS NOTE Patient seen and examined at bedside. She looks markedly improved today, in good spirits. Still has some dyspnea, but less intense. Denies chest pain or palpitations. Daughters are visiting and brought her a [employer] breakfast sandwich (patient had already eaten half of it during my visit). Family History: Unchanged from Admission Social History: Unchanged from Admission Past Medical History: Unchanged from Admission Objective Active Medications: Acetaminophen (Tylenol Supp*) 650 mg IN Q6H PRN PRN Reason: FEVER/PAIN Acetaminophen (Tylenol Tab*) 650 mg PO Q6H PRN PRN Reason: PAIN Last Admin: 07/04/17 08:03 Dose: 650 mg Anastrozole (Arimidex (Nf)) 1 mg PO QAM [facility] Last Admin: 07/04/17 08:03 Dose: 1 mg Bisacodyl (Dulcolax Supp*) 10 mg IN QPM PRN PRN Reason: CONSTIPATION Digoxin (Lanoxin Tab*) 0.125 mg PO 1700 [facility] Fluoxetine HCl (Prozac Cap*) 40 mg PO DAILY [facility] Last Admin: 07/04/17 07:54 Dose: 40 mg Lorazepam (Ativan Inj*) 0.5 mg IV PUSH Q8H PRN PRN Reason: ANXIETY Magnesium Hydroxide (Milk Of Magnmiquel Liq*) 30 ml PO Q6H PRN PRN Reason: CONSTIPATION Last Admin: 07/03/17 16:59 Dose: 30 ml Melatonin (Melatonin (Nf)) 6 mg PO BEDTIME [facility] Last Admin: 07/03/17 22:29 Dose: 6 mg Metoprolol Succinate (Toprol Xl Tab*) 50 mg PO DAILY [facility] Last Admin: 07/04/17 08:02 Dose: 50 mg Metoprolol Succinate (Toprol Xl Tab*) 25 mg PO BEDTIME [facility] Metoprolol Tartrate (Lopressor Iv*) 5 mg IV Q6H PRN PRN Reason: HEART RATE/PULSE GREATER THAN: Last Admin: 07/01/17 08:36 Dose: 5 mg Ondansetron HCl (Zofran Inj*) 4 mg IV Q6H PRN PRN Reason: NAUSEA Last Admin: 06/30/17 08:11 Dose: 4 mg Polyethylene Glycol/Electrolytes (Miralax*) 17 gm PO DAILY PRN PRN Reason: CONSTIPATION Last Admin: 07/03/17 08:20 Dose: 17 gm Senna (Senokot Tab*) 2 tab PO BEDTIME [facility] Last Admin: 07/03/17 23:00 Dose: Not Given Warfarin Sodium (Coumadin Tab(*)) 2.5 mg PO DAILY@1700 [facility] PRN Reason: Protocol Last Admin: 07/03/17 17:00 Dose: 2.5 mg Vital Signs 07/04/17 07/04/17 08:02 09:14 Temperature 97.4 F Pulse Rate 68 Respiratory 18 Rate Blood Pressure 169/90 (mmHg) O2 Sat by Pulse 100 96 Oximetry Oxygen Devices in Use Now: Nasal Cannula Appearance: Pleasant elderly lady sitting up in bed in NAD. Eyes: No Scleral Icterus Ears/Nose/Mouth/Throat: Mucous Membranes Moist Neck: Trachea Midline Respiratory: Symmetrical Chest Expansion and Respiratory Effort, - - BS+ bilaterally with bibasilar crackles Cardiovascular: - - Normal S1 and S2, irregularly irregular Abdominal: NL Sounds; No Tenderness; No Distention Extremities: - - Trace naga Neurological: Alert and Oriented x 3, NL Muscle Strength and Tone Lines/Tubes/Other Access: Clean, Dry and Intact Peripheral IV Nutrition: Taking PO's Result Diagrams: 07/03/17 05:45 07/04/17 05:50 Assess/Plan/Problems-Billing Assessment: Mrs. Law is an 87 yo female with a PMH of PAF, Breast CA, pulmonary HTN, HTN , and orthostasis who presented to the ED on 06/28 with c/o dyspnea, weakness foundnd to be in afib with RVR. - Patient Problems (1) Atrial fibrillation Comment: - Better controlled today with HR in the 60s-70s. - Echo showed global hypokinesis of LV with EF 35-40 %. EF was normal in October 2016. - Cardiology consult appreciated. - Doing much better with rate control - continue metoprolol succinate and digoxin for rate control. - INR 2.4 today - continue Warfarin. (2) Systolic CHF Comment: - With mild exacerbation. - Continue gentle diuresis. (3) HTN (hypertension) Comment: - Trending up. - Will add Lisinopril on top of Metoprolol. - Monitor BP and renal function/K+. (4) Abnormal finding on urinalysis Comment: - Patient has no urinary complaints and urine culture was negative. - D/c Ceftriaxone. (5) Acute kidney injury Comment: - Suspect acute on top of CKD. - Could not tolerated fluids and still showing signs of fluid overload. (6) Physical deconditioning Comment: - Continue PT. - Plan to go to [facility] [place] on discharge. (7) DVT prophylaxis Comment: - Warfarin and SCDs. (8) DNR (do not resuscitate) Status and Disposition: Inpatient for management of Afib RVR/ CHF exacerbation requiring >48h for stabilization. Daughters updated at bedside.
[2017-07-04] MEDS ORDERED: Furosemide IV* 10 MG/ML 2 ML VIAL (20 MG) IV SLOW PU ONE (09:58)
[2017-07-04] MEDS ORDERED: Lisinopril TAB* 5 MG PO SCH (11:00)
[2017-07-04] MEDS ORDERED: Digoxin TAB* 0.125 MG PO SCH (17:00)
[2017-07-04] MEDS: Warfarin TAB(*) 2.5 MG PO SCH (17:11)
[2017-07-04] MEDS: CMCS Melatonin (NF) 3 MG TAB PO SCH (20:00)
[2017-07-04] MEDS: Senna TAB PO SCH (20:01)
[2017-07-04] MEDS ORDERED: Metoprolol Succinate XL TAB* 25 MG PO SCH (21:00)
[2017-07-05] MEDS ORDERED: Lisinopril TAB* 5 MG PO SCH (07:01)
[2017-07-05 07:39] LABS: Digoxin 1.6 ng/ml (0.8-2.0)
[2017-07-05 07:40] LABS: BUN/Creatinine Ratio 26.3 (8-20); Calcium 8.4 mg/dL (8.6-10.3); EGFR African American 86.9 (>60); EGFR Non-African American 67.5 (>60); Potassium 3.8 mmol/L (3.5-5.0)
[2017-07-05] MEDS: CMCS: Anastrozole (NF) 1 MG TAB PO SCH (09:30)
[2017-07-05] MEDS: Metoprolol Succinate XL TAB* 50 MG PO SCH ×2 (09:31→20:42)
[2017-07-05] MEDS: FLUoxetine CAP* 20 MG PO SCH (09:32)
[2017-07-05] MEDS: Furosemide TAB* 20 MG PO SCH (10:43)
[2017-07-05] MEDS: Spironolactone TAB* 25 MG PO SCH (10:43)
--- NOTE | 2017-07-05 11:08 | ECHO ---
Patient: ANITRA REYES [facility] Rec#: [id number] : 1930 Date: 07/05/2017 Age: 87y Height: 163 cm / 64.2 in Weight: 79.7 kg / 175.7 lbs Sex: F BSA: 1.8 Room#: [facility] Admit Date#: 06/29/2017 Type: Inpatient Referring: Daniel Zacarias MD Reading: Daniel Zacarias MD [employer]: Isela Munguia RN RDCS CC: Ervin Kamara MD Transthoracic Echocardiogram Indication: CHF BP: 173/77 HR: 72 Rhythm: Paced Findings History: HTN, pulmonary HTN, A. fib, pacemaker, TIA, breast cancer, mastectomy. This is a LIMITED study to reassess LV function. Technical Comments: The study quality is fair. The study is technically limited due to patient body habitus. Completed at 0920. Left Ventricle: There is global hypokinesis of the left ventricle with minor regional variation.more pronounced lateral and posterlateral hypokinesis c/t the other segments. There is mildly decreased left ventricular systolic function. The estimated ejection fraction is 40-45%. There is abnormal ventricular septal wall motion consistent with right ventricular pacemaker. Mitral Valve: There is posterior mitral annular calcification. Conclusions There is global hypokinesis of the left ventricle with minor regional variation. More pronounced lateral and posterlateral hypokinesis c/t the other segments. There is mildly decreased left ventricular systolic function. The estimated ejection fraction is 40-45%. Moderate interval improvement in EF c/t 9.14.17 (when the EF was reported as 35-40% but seems overestimated at that time by direct comparison).
[2017-07-05] MEDS ORDERED: Lisinopril TAB* 5 MG PO ONE (14:00)
--- NOTE | 2017-07-05 15:15 | PN ---
Subjective Date of Service: 07/05/17 Interval History: HOSPITALIST PROGRESS NOTE Patient seen and examined at bedside. She feels well today, offers no complaints. Family History: Unchanged from Admission Social History: Unchanged from Admission Past Medical History: Unchanged from Admission Objective Active Medications: Acetaminophen (Tylenol Supp*) 650 mg GA Q6H PRN PRN Reason: FEVER/PAIN Acetaminophen (Tylenol Tab*) 650 mg PO Q6H PRN PRN Reason: PAIN Last Admin: 07/04/17 08:03 Dose: 650 mg Anastrozole (Arimidex (Nf)) 1 mg PO QAM [facility] Last Admin: 07/05/17 09:30 Dose: 1 mg Bisacodyl (Dulcolax Supp*) 10 mg GA QPM PRN PRN Reason: CONSTIPATION Digoxin (Lanoxin Tab*) 0.125 mg PO 1700 [facility] Fluoxetine HCl (Prozac Cap*) 40 mg PO DAILY [facility] Last Admin: 07/05/17 09:32 Dose: 40 mg Furosemide (Lasix Tab*) 20 mg PO DAILY [facility] Last Admin: 07/05/17 10:43 Dose: 20 mg Lisinopril (Prinivil Tab*) 10 mg PO DAILY [facility] Lorazepam (Ativan Inj*) 0.5 mg IV PUSH Q8H PRN PRN Reason: ANXIETY Last Admin: 07/04/17 23:07 Dose: 0.5 mg Magnesium Hydroxide (Milk Of Magnesia Liq*) 30 ml PO Q6H PRN PRN Reason: CONSTIPATION Last Admin: 07/03/17 16:59 Dose: 30 ml Melatonin (Melatonin (Nf)) 6 mg PO BEDTIME [facility] Last Admin: 07/04/17 20:00 Dose: 6 mg Metoprolol Succinate (Toprol Xl Tab*) 50 mg PO BID [facility] Metoprolol Tartrate (Lopressor Iv*) 5 mg IV Q6H PRN PRN Reason: HEART RATE/PULSE GREATER THAN: Last Admin: 07/01/17 08:36 Dose: 5 mg Ondansetron HCl (Zofran Inj*) 4 mg IV Q6H PRN PRN Reason: NAUSEA Last Admin: 06/30/17 08:11 Dose: 4 mg Polyethylene Glycol/Electrolytes (Miralax*) 17 gm PO DAILY PRN PRN Reason: CONSTIPATION Last Admin: 07/03/17 08:20 Dose: 17 gm Senna (Senokot Tab*) 2 tab PO BEDTIME [facility] Last Admin: 07/04/17 20:01 Dose: 2 tab Spironolactone (Aldactone Tab*) 25 mg PO DAILY [facility] Last Admin: 07/05/17 10:43 Dose: 25 mg Warfarin Sodium (Coumadin Tab(*)) 2.5 mg PO DAILY@1700 [facility] PRN Reason: Protocol Last Admin: 07/04/17 17:11 Dose: 2.5 mg Vital Signs 07/05/17 07/05/17 07/05/17 03:43 08:24 09:20 Temperature 98.3 F 98.2 F Pulse Rate 73 72 Respiratory 22 20 Rate Blood Pressure 173/77 180/87 (mmHg) O2 Sat by Pulse 98 96 99 Oximetry Oxygen Devices in Use Now: Nasal Cannula Appearance: Pleasant lady lying in bed in NAD. Eyes: No Scleral Icterus Ears/Nose/Mouth/Throat: Mucous Membranes Moist Neck: Trachea Midline Respiratory: Symmetrical Chest Expansion and Respiratory Effort, Clear to Auscultation Cardiovascular: - - Normal S1 and S2, irregularly irregular Abdominal: NL Sounds; No Tenderness; No Distention Extremities: - - Trace bilateral LE edema Neurological: Alert and Oriented x 3, NL Muscle Strength and Tone Lines/Tubes/Other Access: Clean, Dry and Intact Peripheral IV Nutrition: Taking PO's Result Diagrams: 07/03/17 05:45 07/05/17 06:26 Assess/Plan/Problems-Billing Assessment: Mrs. Law is an 87 yo female with a PMH of PAF, Breast CA, pulmonary HTN, HTN , and orthostasis who presented to the ED on 06/28 with c/o dyspnea, weakness foundnd to be in afib with RVR. - Patient Problems (1) Atrial fibrillation Comment: - Better controlled today with HR in the 60s-70s. - Echo showed global hypokinesis of LV with EF 35-40 %. EF was normal in October 2016. - Cardiology consult appreciated. - Doing much better with rate control - continue metoprolol succinate and digoxin for rate control. - INR 2.4 today - continue Warfarin. (2) Systolic CHF Comment: - Improving. - Change diuretics to PO. (3) HTN (hypertension) Comment: - Trending up. - Increase Lisinopril and continue Metoprolol. - Monitor BP and renal function/K+. (4) Abnormal finding on urinalysis Comment: - Patient has no urinary complaints and urine culture was negative. - D/c Ceftriaxone. (5) Acute kidney injury Comment: - Resolved. (6) Physical deconditioning Comment: - Continue PT. - Plan to go to [facility] on discharge. (7) DVT prophylaxis Comment: - Warfarin and SCDs. (8) DNR (do not resuscitate) Status and Disposition: Inpatient for management of Afib RVR/ CHF exacerbation requiring >48h for stabilization. Anticipate d/c to [facility] in AM.
[2017-07-05] MEDS: Warfarin TAB(*) 2.5 MG PO SCH (16:59)
[2017-07-05] MEDS ORDERED: Digoxin TAB* 0.125 MG PO SCH (17:00)
[2017-07-05] MEDS: Senna TAB PO SCH (20:42)
[2017-07-05] MEDS: CMCS Melatonin (NF) 3 MG TAB PO SCH (20:42)
[2017-07-06 06:24] LABS: Calcium 8.7 mg/dL (8.6-10.3); EGFR African American 93.6 (>60); EGFR Non-African American 72.8 (>60)
[2017-07-06 06:30] LABS: Digoxin 1.4 ng/ml (0.8-2.0)
[2017-07-06] MEDS ORDERED: amLODIPine TAB* 5 MG PO SCH ×2 (09:00)
[2017-07-06] MEDS ORDERED: Lisinopril TAB* 10 MG PO SCH (09:00)
[2017-07-06] MEDS: FLUoxetine CAP* 20 MG PO SCH (09:40)
[2017-07-06] MEDS: Metoprolol Succinate XL TAB* 50 MG PO SCH (09:40)
[2017-07-06] MEDS: Furosemide TAB* 20 MG PO SCH (09:41)
[2017-07-06] MEDS: Spironolactone TAB* 25 MG PO SCH (09:41)
[2017-07-06] MEDS: CMCS: Anastrozole (NF) 1 MG TAB PO SCH (09:41)
[2017-07-06 12:01] VITALS: BP 150/88
--- NOTE | 2017-07-06 12:31 | DS ---
CC: Dr. Kamara; Dr. Dolan DATE OF ADMISSION: 06/28/2017. DATE OF DISCHARGE: 07/06/2017. DISCHARGE DIAGNOSES: 1. Atrial fibrillation with rapid ventricular rate. 2. Acute systolic CHF exacerbation. 3. Acute hypoxemic respiratory failure secondary to the above. 4. Uncontrolled hypertension. 5. Acute kidney injury. 6. Physical deconditioning. SECONDARY DIAGNOSES: 1. Paroxysmal atrial fibrillation. 2. Breast cancer. 3. Pulmonary hypertension. 4. Hypertension. 5. Orthostasis. 6. Status post pacemaker. MEDICATIONS: 1. Melatonin 6 mg p.o. at bedtime. 2. Cholecalciferol 50,000 units p.o. weekly. 3. Milk of Magnesia 30 ml p.o. q.a.m. prn constipation. 4. Premarin vaginal cream one applicator vaginally Tuesdays and . 5. Dulcolax suppository 10 mg per rectum q.p.m. as needed for constipation. 6. Acetaminophen suppository 650 mg per rectum q.6 hours prn pain or fever. 7. Warfarin 2.5 mg p.o. daily. 8. Senna two tablets p.o. at bedtime. 9. Align 4 mg p.o. q.p.m. 10. Acetaminophen 650 mg p.o. at bedtime prn pain or fever. 11. Fluoxetine 400 mg p.o. daily. 12. Cranberry 450 mg p.o. daily. 13. Anastrozole 1 mg p.o. q.a.m. New Medications: 1. Amlodipine 5 mg p.o. daily. 2. Spironolactone 25 mg p.o. daily. 3. Metoprolol Succinate 50 mg p.o. b.i.d. 4. Lisinopril 10 mg p.o. daily. 5. Furosemide 20 mg p.o. daily. 6. Digoxin 0.125 mg p.o. daily. Diltiazem was discontinued. HOSPITAL COURSE: Ms. Law is an 87-year-old lady with a past medical history as stated above who presented to the emergency room with complaints of weakness and shortness of breath. She had been d iagnosed with atrial fibrillation as Hilda and the were trying to control her heart rate as an outp atient, but as her symptoms worsened, she was sent to the emergency room for further evaluation. Fo r details about her presentation, I refer you to her history and physical. The patient was admitted to the Telemetry floor where she was started on a Cardizem drip with better rate control. She had a venous Doppler of the lower extremities that was negative for DVT. She gardner d a transthoracic echocardiogram that showed an ejection fraction of 35 to 40 percent with global hy pokinesis of the left ventricle and minor regional variation. There is mild aortic regurgitation, m ild to moderate mitral regurgitation, and moderate to severe tricuspid regurgitation. Of note, her ejection fraction in general area was 55 to 60 percent. Initially there was some concern for a possible urinary tract infection as the patient had an abnorm al urinalysis. She was started on antibiotics and received IV fluids, but unfortunately she develop ed acute systolic CHF exacerbation/fluid overload. Later on, her culture came back negative and ant ibiotic was discontinued. She was diuresed with good response. As the patient had a drop in her ejection fraction, consultation was requested with cardiology (Dr. Zacarias). His impression was that the patient had a history of paroxysmal atrial fibrillation and no w presented with a prolonged episode of A-fib and poor control of her ventricular response. She als o has what appears to be a newly documented left ventricular dysfunction compared to October. Certa inly she is at risk for tachycardia-induced cardiomyopathy, as well as ischemic cardiomyopathy. The patient reported she had a cath three to four years ago and was told of nonobstructive CAD. In any event, given her age and her wishes to avoid any aggressive intervention, she would like to pursue m edical therapy only. Dr. Zacarias recommended discontinuation of Cardizem in the setting of LV dysfun ction and heart failure. We increased Metoprolol as tolerated. She was loaded with Digoxin and we did obtain good heart rate control with significant improvement of her symptoms. He also recommende d diuresis and initially she received IV Furosemide and now she is doing well on the oral Furosemide and Aldactone. With improvement of her atrial fibrillation rate, the patient became hypotensive. Lisinopril and Aml odipine were added, but her blood pressure was still elevated. According to the patient and her daug hter, she has had very difficult to control hypertension for many years. I did discuss this finding with her primary care provider, Dr. Kamara, and he is comfortable taking the patient back at [facility] and he will continue to titrate her BP medications for blood pressure control. The patient has had significant symptomatic improvement and she is anxious to return to [facility] at th is point. Due to her deconditioning, she will be discharged to [facility] to continue her rehabilitatio n process. The patient had a carotid Doppler as Dr. Zacarias was under the impression she had a carotid bruit, bu t her carotid ultrasound showed no significant stenosis. She did have a limited transthoracic echoc ardiogram prior to discharge to assess her LV function and her ejection fraction is a little higher now, up to 40 to 45 percent. PHYSICAL EXAMINATION: General: The patient is a pleasant, elderly lady, lying in bed in no acute d istress. Vital Signs: Temperature 98.3, heart rate 70, respiratory rate 20, oxygen saturation 100 percent on 2 liters nasal canula, blood pressure 165/76. CVS: Normal S1, S2, irregularly irregular . Chest: Breath sounds bilaterally with no added sounds. Abdomen: Soft, bowel sounds present. Ex tremities: Trace lower extremity edema. Neuro: She is alert and oriented times three. Able to mo ve all four extremities. DIET: Heart healthy diet, avoid caffeine. While in the hospital, the patient's family brought her a breakfast sandwich from [employer] and I suspect this may be a frequent event. They were all adv ised the patient needs to avoid salt intake to avoid another episode like this, but this may need to be reinforced at [facility]. ACTIVITY: As tolerated. DISPOSITION: [facility]. STATUS WHILE IN THE HOSPITAL: Inpatient. Please keep in mind that this is a summarized version of t his patient's prolonged and complex hospital stay. If you need more information, please feel free t o call me at or please obtain the full medical records. Approximately 50 minutes were spent to complete this discharge. [id number]/[facility] #: [id number]
== END 2017-07-06 14:30 | disposition home or self-care (01) | DRG 308 ==
LOC: ED 19:56 → MEDTELE 22:55 → OBSVTOIN 06-29 10:00
PROVIDERS: ADMIT Hospitalist; ATTEND Internal Medicine
DX: I48.0 Paroxysmal atrial fibrillation (principal); I50.23 Acute on chronic systolic (congestive) heart failure; J96.01 Acute respiratory failure with hypoxia; N17.9 Acute kidney failure, unspecified; I95.9 Hypotension, unspecified; I24.8 Other forms of acute ischemic heart disease; I11.0 Hypertensive heart disease with heart failure; I42.9 Cardiomyopathy, unspecified; I27.2 Other secondary pulmonary hypertension; Z66 Do not resuscitate; E66.3 Overweight; R74.8 Abnormal levels of other serum enzymes; R79.1 Abnormal coagulation profile; T45.515A Adverse effect of anticoagulants, initial encounter; I95.1 Orthostatic hypotension; M06.9 Rheumatoid arthritis, unspecified; H91.90 Unspecified hearing loss, unspecified ear; F41.9 Anxiety disorder, unspecified; F32.9 Major depressive disorder, single episode, unspecified; R40.2412 Glasgow coma scale score 13-15, at arrival to emergency department; R11.0 Nausea; E86.0 Dehydration; R82.90 Unspecified abnormal findings in urine; R53.1 Weakness; I08.3 Combined rheumatic disorders of mitral, aortic and tricuspid valves; Z90.12 Acquired absence of left breast and nipple; Z79.01 Long term (current) use of anticoagulants; Z85.3 Personal history of malignant neoplasm of breast; Z88.1 Allergy status to other antibiotic agents; Z82.49 Family history of ischemic heart disease and other diseases of the circulatory system; Z68.29 Body mass index [BMI] 29.0-29.9, adult; Y92.9 Unspecified place or not applicable; Z95.0 Presence of cardiac pacemaker; Z97.4 Presence of external hearing-aid; Z86.73 Personal history of transient ischemic attack (TIA), and cerebral infarction without residual deficits; Z80.3 Family history of malignant neoplasm of breast; Z98.41 Cataract extraction status, right eye; Z98.42 Cataract extraction status, left eye; Z90.710 Acquired absence of both cervix and uterus
CPT/HCPCS: 36415; 71010; 80048; 80053; 80162; 81003; 81015; 82550; 82553; 83605; 83735; 83880; 84443; 84484; 85025; 85027; 85610; 85730; 86140; 87086; 87641; 93005; 93306; 93308; 93880; 93970; 94760; A9270-GY; G0378; J0696; J1160; J1940; J2060; J2405

== ENCOUNTER 2017-10-18 22:45 | Emergency (ER) | payer MEDICARE ==
--- NOTE | 2017-10-18 23:58 | ED ---
Head Injury - HPI Summary HPI Summary: [facility]. Reports she was picking out an outfit from her closet for tomorrow and she lost her footing on the carpet. Started to stumble backwards and tried to catch herself but couldn't - fell and hit back of head on nightstand. Had some soreness of the area of impact but reports this is better now. Denies change in vision, nausea, vomiting, headache , numbness, tingling, weakness and neck pain. Reports she is only here as " nurse made me come" - she's on coumadin. NOTE: has a baseline Rt eyelid droop. - History Of Current Complaint Chief Complaint: EDHeadInjury Stated Complaint: FALL/HEAD INJURY Time Seen by Provider: 10/18/17 23:33 Hx Obtained From: Patient Pain Intensity: 0 - Allergies/Home Medications Allergies/Adverse Reactions: Allergies Allergy/AdvReac Type Severity Reaction Status Date / Time Levofloxacin [From Levaquin] Allergy Unknown Unknown Verified 08/17/15 13:05 Reaction Details Nitrofurantoin Allergy Unknown Unknown Verified 08/17/15 13:05 [From Macrodantin] Reaction Details PMH/Surg Hx/FS Hx/Imm Hx Previously Healthy: Yes Endocrine/Hematology History: Reports: Hx Anticoagulant Therapy - coumadin Denies: Hx Diabetes, Hx Thyroid Disease Cardiovascular History: Reports: Hx Atrial Fibrillation, Hx Auto Implanted Cardiovert Defib, Hx Hypertension, Hx Pacemaker/ICD, Hx Syncope, Hx Valvular Heart Disease - TRICUSPID INSUFFIENCY Denies: Hx Congestive Heart Failure Respiratory History: Reports: Hx Pulmonary Edema - PULMONARY HTN Denies: Hx Chronic Obstructive Pulmonary Disease (COPD), Other Respiratory Problems/Disorders GI History: Reports: Hx Obstructive Bowel Denies: Other GI Disorders History: Reports: Hx Kidney Infection Denies: Hx Renal Disease, Other Problems/Disorders Musculoskeletal History: Reports: Hx Arthritis - rheumatoid arthritis, Hx Rheumatoid Arthritis Denies: Hx Osteoporosis Sensory History: Reports: Hx Cataracts, Hx Contacts or Glasses, Hx Vision Problem, Hx Hearing Aid, Hx Hearing Problem, Other Sensory Impairments Denies: Hx Eye Injury, Hx Eye Prosthesis, Hx Glaucoma, Hx Legally Blind, Hx Macular Degeneration Opthamlomology History: Reports: Hx Cataracts, Hx Contacts or Glasses, Hx Vision Problem, Other Sensory Impairments Denies: Hx Eye Injury, Hx Eye Prosthesis, Hx Glaucoma, Hx Legally Blind, Hx Macular Degeneration Neurological History: Reports: Hx Transient Ischemic Attacks (TIA) Denies: Hx Dementia, Hx Developmental Delay, Hx Headaches, Hx Migraine, Hx Nerve Disease, Hx Seizures, Hx Spinal Cord Injury, Other Neuro Impairments/ Disorders Psychiatric History: Reports: Hx Anxiety, Hx Depression Denies: Hx Substance Abuse - Cancer History Cancer Type, Location and Year: Breast cancer Hx Chemotherapy: No Hx Radiation Therapy: No - Surgical History Surgery Procedure, Year, and Place: Hysterectomy, 2003, [facility] [place]. Knee surg, 1950. B. cataracts, 2009. Appendectomy. Pacemaker, 2010. Left Breast Lumpectomy, 2013, [facility] [place] Hx Anesthesia Reactions: No - Immunization History Date of Tetanus Vaccine: Unk Date of Influenza Vaccine: 08/02 Infectious Disease History: No Infectious Disease History: Denies: Hx Clostridium Difficile, Hx Hepatitis, Hx Human Immunodeficiency Virus (HIV), Hx of Known/Suspected MRSA, History Other Infectious Disease, Traveled Outside the [place] in Last 30 Days - Family History Known Family History: Positive: Hypertension - father, Other Family History: Positive family hx of breast CA. - Social History Occupation: Retired Lives: At [employer] Alcohol Use: None Hx Substance Use: No Substance Use Type: Reports: None Hx Tobacco Use: No Smoking Status (MU): Never Smoked Tobacco Have You Smoked in the Last Year: No Review of Systems Constitutional: Negative Negative: Fever, Chills, Fatigue Eyes: Negative Negative: Photophobia, Blurred Vision, Diplopia ENT: Negative Negative: Dental Pain Cardiovascular: Negative Negative: Palpitations, Chest Pain Respiratory: Negative Negative: Shortness Of Breath Gastrointestinal: Negative Negative: Abdominal Pain, Vomiting, Diarrhea, Nausea Positive: no symptoms reported. Negative: incontinence Musculoskeletal: Negative Skin: Negative Positive: Headache. Negative: Weakness, Paresthesia, Numbness, Syncope, Slurred Speech Psychological: Normal All Other Systems Reviewed And Are Negative: Yes Physical Exam Triage Information Reviewed: Yes Vital Signs On Initial Exam: Initial Vitals Temp Pulse Resp BP Pulse Ox 98.2 F 74 16 154/77 99 10/18/17 22:51 10/18/17 22:51 10/18/17 22:51 10/18/17 22:51 10/18/17 22:51 Vital Signs Reviewed: Yes Appearance: Positive: Well-Appearing, No Pain Distress, Well-Nourished Skin: Positive: Warm, Dry - no ecchymosis Head/Face: Positive: Scalp - mild tenderness over posterior scalp - no hematoma , no skin changes, no lac Eyes: Positive: Normal, EOMI, RETA - no photophobia, Conjunctiva Clear. Negative: Conjunctiva Inflammed, Discharge ENT: Positive: Normal ENT inspection, Hearing grossly normal, Pharynx normal. Negative: Nasal drainage Neck: Positive: Supple, Nontender Respiratory/Lung Sounds: Positive: Breath Sounds Present, Other - NTTP Cardiovascular: Positive: Pulses are Symmetrical in both Upper and Lower Extremities Abdomen Description: Positive: Nontender, Soft Bowel Sounds: Positive: Present Musculoskeletal: Positive: Normal, Strength/ROM Intact Neurological: Positive: Normal, Sensory/Motor Intact, Alert, Oriented to Person Place, Time, CN Intact II-III Psychiatric: Positive: Normal - Deborah Coma Scale Coma Scale Total: 15 Diagnostics - Vital Signs Vital Signs Temp Pulse Resp BP Pulse Ox 10/18/17 22:51 98.2 F 74 16 154/77 99 - Laboratory Lab Statement: Any lab studies that have been ordered have been reviewed, and results considered in the medical decision making process. Head Injury Course/Dx Course Of Treatment: Pt's reports of CT of brain and cervical spine reviewed - no acute findings. Incidental finding of thyroid nodule w/o throat pain/ dysphagia. Advised to watch for neuro deficits. D/c instructions provided. - Diagnoses Provider Diagnoses: Fall from standing, Head injury, Thyroid nodule Discharge - Discharge Plan Condition: Stable Disposition: HOME Patient Education Materials: Fall Prevention for Older Adults (ED), Head Injury (ED), Thyroid Nodules (ED) Referrals: Ervin Kamara MD [Primary Care Provider] - Additional Instructions: Monitor for neurological deficits over the next few weeks. If these present, seek medical attention immediately - call 911 or go to ED. NOTE: incidental finding of thyroid nodule. Follow-up with PCP this week to discuss - call Thursday to schedule appointment. If you develop trouble breathing or swallowing, return to ED
[2017-10-19 02:34] VITALS: BP 143/86
--- NOTE | 2017-10-19 08:15 | RAD ---
Indication: Found down. Comparison: November 04, 2016 CT. Technique: Noncontrast CT vertex of skull through foramen magnum. Report: Mild to moderate prominence of the cerebral sulci and cerebellar fissures reflecting atrophy. Decreased density in the periventricular and subcortical white matter while non-specific is most likely due to chronic microangiopathy. Negative for jama matter white matter obscuration, intra or extra-axial hemorrhage, or mass effect. Unremarkable orbital contents. Negative for calvarial or skull base fracture or suspicious focal osseous lesion. Negative for scalp hematoma. IMPRESSION: Involutional change and stigmata of chronic small vessel ischemic disease. No traumatic injury or acute intracranial process evident.
--- NOTE | 2017-10-19 08:24 | RAD ---
INDICATION: Found down. COMPARISON: May 14, 2016 CT. TECHNIQUE: Multidetector CT images foramen magnum to lung apices without contrast. Multiplanar reformation. REPORT: Negative for cervical vertebral body or posterior element fracture. Negative for paravertebral hematoma. Degenerative 1 -- 2 mm C3-C4 anterolisthesis. Negative for facet subluxation at any level. Diffuse advanced degenerative spondylosis and facet joint osteoarthritis. Ankylosis at the RIGHT C2-C3 facet joints. At C4-C5 dorsal spondylitic ridging disc complex results in mild impression on the ventral margin of the thecal sac and uncinate process spurring results in severe bilateral foraminal stenosis. At C5-C6 dorsal spondylitic ridging disc complex results in mild impression on the ventral margin of the thecal sac and uncinate process spurring results in severe bilateral foraminal stenosis. At C6-C7 uncinate process spurring and facet joint osteoarthritis results in severe RIGHT foraminal stenosis. IMPRESSION: No CT evidence for traumatic cervical spine injury. No significant change in diffuse degenerative spondylosis and posterior element osteoarthritis with associated spinal stenosis as described.
== END 2017-10-19 02:32 | disposition home or self-care (01) ==
LOC: ED 22:45
DX: S09.90XA Unspecified injury of head, initial encounter (principal); E04.1 Nontoxic single thyroid nodule; R51 Headache; Z79.01 Long term (current) use of anticoagulants; W19.XXXA Unspecified fall, initial encounter; Y92.9 Unspecified place or not applicable
CPT/HCPCS: 70450; 72125; 99282

== ENCOUNTER 2017-12-28 03:13 | Inpatient (IN) | payer MEDICARE ==
[2017-12-28] MEDS ORDERED: Furosemide IV* 10 MG/ML VIAL (40 MG) IV SLOW PU ONE (03:48)
[2017-12-28 05:12] LABS: ABS Basophils 0.1 10^3/ul (0-0.2); ABS Eosinophils 0.3 10^3/ul (0-0.6); ABS Lymphocytes 0.8 10^3/ul (1.0-4.8); ABS Monocytes 0.8 10^3/ul (0-0.8); ABS Neutrophils 11.7 10^3/ul (1.5-7.7); ABS Nucleated RBC 0.1 10^3/ul; Eosinophil % 1.9 % (0-6); Hematocrit 41 % (35-47); Hemoglobin 12.9 g/dl (12.0-16.0); Lymphocyte % 5.7 % (25-47); Mean Corpuscular HGB Conc 32 g/dl (31-36); Mean Corpuscular Hemoglobin 26 pg (27-31); Mean Corpuscular Volume 82 fL (80-97); Mean Platelet Volume 8 um3 (7.4-10.4); Nucleated Red Blood Cells % 0.4; Platelet Count 316 10^3/ul (150-450); Red Blood Count 4.96 10^6/ul (4.0-5.4); Red Cell Distribution Width 20 % (10.5-15); White Blood Count 13.6 10^3/ul (3.5-10.8)
[2017-12-28 05:16] LABS: INR 3.76 (0.77-1.02)
[2017-12-28 05:18] LABS: EGFR Non-African American 37.2 (>60)
--- NOTE | 2017-12-28 06:18 | ED ---
Meera Negron Julia, scribed for Jhonathan Milton MD on 12/28/17 at 0348 . Shortness of Breath - HPI Summary HPI Summary: This patient is an 87 year old F presenting to [facility] from [place] due to labored breathing accessory muscle use. EMS reports an SaO2 of 86% on 2L of oxygen. Patient reports SOB. - History of Current Complaint Chief Complaint: EDShortnessOfBreath Time Seen by Provider: 12/28/17 03:17 Hx Obtained From: Patient, EMS Onset/Duration: Still Present, Worse Since - this morning Timing: Constant Dyspnea At: Rest Associated Signs & Symptoms: Negative - Allergy/Home Medications Allergies/Adverse Reactions: Allergies Allergy/AdvReac Type Severity Reaction Status Date / Time ciprofloxacin Allergy Abdominal Verified 12/28/17 03:18 Pain levofloxacin [From Levaquin] Allergy Unknown Verified 12/28/17 03:18 Reaction Details nitrofurantoin Allergy Unknown Verified 12/28/17 03:18 [From Macrodantin] Reaction Details PMH/Surg Hx/FS Hx/Imm Hx Endocrine/Hematology History: Reports: Hx Anticoagulant Therapy - coumadin Denies: Hx Diabetes, Hx Thyroid Disease, Hx Anemia Cardiovascular History: Reports: Hx Atrial Fibrillation, Hx Auto Implanted Cardiovert Defib, Hx Hypertension, Hx Pacemaker/ICD, Hx Syncope, Hx Valvular Heart Disease - TRICUSPID INSUFFIENCY Denies: Hx Congestive Heart Failure Respiratory History: Reports: Hx Pulmonary Edema - PULMONARY HTN Denies: Hx Chronic Obstructive Pulmonary Disease (COPD), Other Respiratory Problems/Disorders GI History: Reports: Hx Obstructive Bowel Denies: Hx Jaundice, Other GI Disorders History: Reports: Hx Kidney Infection Denies: Hx Renal Disease, Other Problems/Disorders Musculoskeletal History: Reports: Hx Arthritis - rheumatoid arthritis, Hx Rheumatoid Arthritis Denies: Hx Osteoporosis Sensory History: Reports: Hx Cataracts, Hx Contacts or Glasses, Hx Vision Problem, Hx Hearing Aid, Hx Hearing Problem, Other Sensory Impairments Denies: Hx Eye Injury, Hx Eye Prosthesis, Hx Glaucoma, Hx Legally Blind, Hx Macular Degeneration Opthamlomology History: Reports: Hx Cataracts, Hx Contacts or Glasses, Hx Vision Problem, Other Sensory Impairments Denies: Hx Eye Injury, Hx Eye Prosthesis, Hx Glaucoma, Hx Legally Blind, Hx Macular Degeneration Neurological History: Reports: Hx Transient Ischemic Attacks (TIA) Denies: Hx Dementia, Hx Developmental Delay, Hx Headaches, Hx Migraine, Hx Nerve Disease, Hx Seizures, Hx Spinal Cord Injury, Other Neuro Impairments/ Disorders Psychiatric History: Reports: Hx Anxiety, Hx Depression Denies: Hx Substance Abuse - Cancer History Cancer Type, Location and Year: Breast cancer Hx Chemotherapy: No Hx Radiation Therapy: No - Surgical History Surgery Procedure, Year, and Place: Hysterectomy, 2003, [facility] [place]. Knee surg, 1950. B. cataracts, 2009. Appendectomy. Pacemaker, 2010. Left Breast Lumpectomy, 2013, [facility] [place] Hx Anesthesia Reactions: No - Immunization History Date of Tetanus Vaccine: unk Date of Influenza Vaccine: unk Infectious Disease History: No Infectious Disease History: Denies: Hx Clostridium Difficile, Hx Hepatitis, Hx Human Immunodeficiency Virus (HIV), Hx of Known/Suspected MRSA, History Other Infectious Disease, Traveled Outside the US in Last 30 Days - Family History Known Family History: Positive: Hypertension - father Family History: Positive family hx of breast CA. - Social History Lives: At [facility] Alcohol Use: None Hx Substance Use: No Substance Use Type: Reports: None Hx Tobacco Use: No Smoking Status (MU): Never Smoked Tobacco Have You Smoked in the Last Year: No Review of Systems Negative: Fever Respiratory: Other - labored breathing Positive: Shortness Of Breath All Other Systems Reviewed And Are Negative: Yes Physical Exam - Summary Physical Exam Summary: VITAL SIGNS: Reviewed. GENERAL: Patient is a well-developed and nourished female who is lying comfortable in the stretcher. Patient is not in any acute respiratory distress. HEAD AND FACE: No signs of trauma. No ecchymosis, hematomas or skull depressions. No sinus tenderness. EYES: PERRLA, EOMI x 2, No injected conjunctiva, no nystagmus. EARS: Hearing grossly intact. Ear canals and tympanic membranes are within normal limits. MOUTH: Oropharynx within normal limits. NECK: Supple, trachea is midline, no adenopathy, no JVD, no carotid bruit, no c- spine tenderness, neck with full ROM. CHEST: Symmetric, no tenderness at palpation LUNGS:Bilateral rales. Decreased breath sounds bilaterally. No wheezing. CVS: Regular rate and rhythm, S1 and S2 present, no murmurs or gallops appreciated. ABDOMEN: Soft, non-tender. No signs of distention. No rebound no guarding, and no masses palpated. Bowel sounds are normal. EXTREMITIES: FROM in all major joints, no cyanosis or clubbing. Bilateral +1 edema. NEURO: Alert and oriented x 3. No acute neurological deficits. Speech is normal and follows commands. SKIN: Dry and warm Triage Information Reviewed: Yes Vital Signs On Initial Exam: Initial Vitals Temp Pulse Resp BP Pulse Ox 97.7 F 72 20 120/65 92 12/28/17 03:14 12/28/17 03:14 12/28/17 03:14 12/28/17 03:14 12/28/17 03:14 Vital Signs Reviewed: Yes Diagnostics - Vital Signs Vital Signs Temp Pulse Resp BP Pulse Ox 12/28/17 03:14 97.7 F 72 20 120/65 92 - Laboratory Lab Results: Lab Results 12/28/17 12/28/17 12/28/17 Range/Units 04:35 04:35 04:35 WBC (3.5-10.8) 10^3/ul RBC (4.0-5.4) 10^6/ul Hgb (12.0-16.0) g/dl Hct (35-47) % MCV (80-97) fL MCH (27-31) pg MCHC (31-36) g/dl RDW (10.5-15) % Plt Count (150-450) 10^3/ul MPV (7.4-10.4) um3 Neut % (Auto) (38-83) % Lymph % (Auto) (25-47) % [place] % (Auto) (0-7) % Eos % (Auto) (0-6) % Baso % (Auto) (0-2) % Absolute Neuts (auto) (1.5-7.7) 10^3/ul Absolute Lymphs (auto) (1.0-4.8) 10^3/ul Absolute Monos (auto) (0-0.8) 10^3/ul Absolute Eos (auto) (0-0.6) 10^3/ul Absolute Basos (auto) (0-0.2) 10^3/ul Absolute Nucleated RBC 10^3/ul Nucleated RBC % INR (Anticoag Therapy) 3.76 H (0.77-1.02) APTT 48.9 H (26.0-36.3) seconds Sodium 130 L (133-145) mmol/L Potassium TNP Chloride 102 (101-111) mmol/L Carbon Dioxide 19 L (22-32) mmol/L Anion Gap 9 (2-11) mmol/L BUN 44 H (6-24) mg/dL Creatinine 1.34 H (0.51-0.95) mg/dL Est GFR ( Amer) 47.9 (>60) Est GFR (Non-Af Amer) 37.2 (>60) BUN/Creatinine Ratio 32.8 H (8-20) Glucose 97 (70-100) mg/dL Calcium 9.0 (8.6-10.3) mg/dL Total Bilirubin 1.30 H (0.2-1.0) mg/dL AST TNP ALT 19 (7-52) U/L Alkaline Phosphatase 83 (34-104) U/L Troponin I 0.05 H* (<0.04) ng/mL C-Reactive Protein 156.48 H (< 5.00) mg/L B-Natriuretic Peptide 1215 H ( - 100) pg/mL Total Protein 6.4 (6.4-8.9) g/dL Albumin 2.9 L (3.2-5.2) g/dL Globulin 3.5 (2-4) g/dL Albumin/Globulin Ratio 0.8 L (1-3) 12/28/17 Range/Units 04:35 WBC 13.6 H (3.5-10.8) 10^3/ul RBC 4.96 (4.0-5.4) 10^6/ul Hgb 12.9 (12.0-16.0) g/dl Hct 41 (35-47) % MCV 82 (80-97) fL MCH 26 L (27-31) pg MCHC 32 (31-36) g/dl RDW 20 H (10.5-15) % Plt Count 316 (150-450) 10^3/ul MPV 8 (7.4-10.4) um3 Neut % (Auto) 85.8 H (38-83) % Lymph % (Auto) 5.7 L (25-47) % [place] % (Auto) 6.0 (0-7) % Eos % (Auto) 1.9 (0-6) % Baso % (Auto) 0.6 (0-2) % Absolute Neuts (auto) 11.7 H (1.5-7.7) 10^3/ul Absolute Lymphs (auto) 0.8 L (1.0-4.8) 10^3/ul Absolute Monos (auto) 0.8 (0-0.8) 10^3/ul Absolute Eos (auto) 0.3 (0-0.6) 10^3/ul Absolute Basos (auto) 0.1 (0-0.2) 10^3/ul Absolute Nucleated RBC 0.1 10^3/ul Nucleated RBC % 0.4 INR (Anticoag Therapy) (0.77-1.02) APTT (26.0-36.3) seconds Sodium (133-145) mmol/L Potassium Chloride (101-111) mmol/L Carbon Dioxide (22-32) mmol/L Anion Gap (2-11) mmol/L BUN (6-24) mg/dL Creatinine (0.51-0.95) mg/dL Est GFR ( Amer) (>60) Est GFR (Non-Af Amer) (>60) BUN/Creatinine Ratio (8-20) Glucose (70-100) mg/dL Calcium (8.6-10.3) mg/dL Total Bilirubin (0.2-1.0) mg/dL AST ALT (7-52) U/L Alkaline Phosphatase (34-104) U/L Troponin I (<0.04) ng/mL C-Reactive Protein (< 5.00) mg/L B-Natriuretic Peptide ( - 100) pg/mL Total Protein (6.4-8.9) g/dL Albumin (3.2-5.2) g/dL Globulin (2-4) g/dL Albumin/Globulin Ratio (1-3) Result Diagrams: 12/28/17 04:35 12/28/17 04:35 Lab Statement: Any lab studies that have been ordered have been reviewed, and results considered in the medical decision making process. - Radiology CXR Radiology Interpretation Completed By: ED Physician - Pulmonary Edema. - EKG 0338 Cardiac Rate: NL - at 70 BPM EKG Interpretation: paced at 70 BPM Course/Dx - Course Course Of Treatment: Patient is brought to the ED due to labored breathing accessory muscle use. EMS reports an SaO2 of 86% on 2L of oxygen. Patient reports SOB. Patient is put on CPAP and given Lasix. Lab results reveal at Troponin of 0.05. CXR is indicative of pulmonary edema. Dr. Morales agrees to admit this patient. - Diagnoses Provider Diagnoses: CHF (congestive heart failure), Pulmonary edema - Physician Notifications Discussed Care of Patient With: Benjamin Morales - hospitalist Time Discussed With Above Provider: 05:53 Instructed by Provider To: Admit As Inpatient Discharge - Discharge Plan Condition: Fair Disposition: ADMITTED TO [facility] Referrals: Ervin Kamara MD [Primary Care Provider] - The documentation as recorded by the Meera polo Julia accurately reflects the service I personally performed and the decisions made by , Jhonathan Milton MD.
--- NOTE | 2017-12-28 08:06 | RAD ---
INDICATION: Difficulty breathing COMPARISON: Chest x-ray July 02, 2017 TECHNIQUE: Single AP portable view of the chest was obtained. FINDINGS: Image quality is compromised due to the relative inferiority of a portable chest x-ray. Again seen is a left upper chest cardiac pacemaker 2 leads overlying the heart. There is mild cardiomegaly and coarse calcification overlying the arch the aorta. There are bilateral densities overlying the lungs with increased interstitial markings and engorgement of the pulmonary vasculature. Visualized bones are normal for the patient's age. IMPRESSION: In the correct clinical setting the chest x-ray findings are most consistent with cardiogenic pulmonary edema.
[2017-12-28] MEDS ORDERED: Albuterol HFA INHALER* 8 gm MDI INH PRN (08:39)
[2017-12-28] MEDS ORDERED: Magnesium Hydroxide LIQ* 30 ML UDC PO PRN (08:39)
[2017-12-28] MEDS ORDERED: Acetaminophen SUPP* 650 MG SUPP PR PRN (08:39)
[2017-12-28 08:55] LABS: Urine Appearance Clear; Urine Blood 2+ (Negative); Urine Color Yellow; Urine Ketones Negative (Negative); Urine Protein Negative (Negative); Urine Specific Gravity 1.006 (1.010-1.030); Urine Urobilinogen Negative (Negative)
[2017-12-28] MEDS: Furosemide IV* 10 MG/ML VIAL (40 MG) IV SLOW PU SCH (10:55)
[2017-12-28] MEDS: cefTRIAXone(*) 1 GM in NS 0.9% 50 ML* 50 ML IVPB SCH (11:00)
[2017-12-28] MEDS: Levothyroxine TAB* 50 MCG TAB PO SCH (11:04)
[2017-12-28] MEDS: CMC:Anastrozole (NF) 1 MG TAB PO SCH (11:05)
[2017-12-28] MEDS: FLUoxetine CAP* 20 MG PO SCH (11:05)
[2017-12-28] MEDS: Lactobacillus Acidophilu (GG)* 1 CAP CAP PO SCH (11:05)
[2017-12-28] MEDS: Metoprolol Tartrate TAB* 25 MG PO SCH ×2 (11:06→21:30)
--- NOTE | 2017-12-28 13:14 | HP ---
ADMISSION HISTORY AND PHYSICAL: DATE OF ADMISSION: 12/28/17 PRIMARY CARE PROVIDER: Dr. Kamara. HEALTHCARE PROXY: Karla Medina. , cell phone. CODE STATUS: DNR/DNI discussed with Thad Adamsigifredo completed. HISTORY OBTAINED: From interview with Karla, review of Dr. Kamara's notes, review of EMS' notes, review of past medical records. RELIABILITY: Good. CHIEF COMPLAINT: Increased work of breathing, hypoxia at [facility]. 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 Last seen in Dr. Kamara's office on 12/15/17 for multiple issues including fatigue, poor appetite, failure to thrive with less activity as well as bilateral lower extremity edema. She had seen Dr. Zacarias who thought there could have been pacemaker malfunction. Review of his notes indicate changes in the pacemaker settings to increase impedance, but no indication of its malfunctioning. She was seen by Lakia Ramírez at [facility] and treated for UTI with cefuroxime. However, discussion with daughter the patient several days prior, said she was more confused, calling out to people that were not there and seeing things. [facility] notes indicate that the patient had increased shortness of breath with increased work of breathing and she was 86% on 2 L increased to 94% on 4 L. Of note, her Lasix was recently increased to 40 mg daily when seen by Dr. Kamara on 12/16/17 as well as her metoprolol was decreased. She presented to the emergency room where chest x-ray was consistent with CHF exacerbation. She was given 40 units of Lasix IV with 600 cc of urine out and placed on BiPAP. When seen by this author, the patient was still lethargic and awake, but confused and difficult to communicate through BiPAP. She was still in respiratory distress requiring BiPAP. Of note, last hospital stay was in June 2017 and she presented with shortness of breath in the setting of atrial fibrillation with rapid ventricular response with her hospital course complicated by systolic heart failure. PAST MEDICAL HISTORY: 1. Permanent pacemaker. 2. Paroxysmal atrial fibrillation. 3. Hypertension. 4. Cardiomyopathy thought to be combination of ischemic and tachy-induced EF 35 % to 40%. 5. Moderate mitral regurge. 6. 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 7. Moderate pulmonary hypertension. 8. History of breast cancer. 9. Hypothyroidism. MEDICATIONS: From Dr. Kamara' last visit include; 1. Guaifenesin 10 mL every 4 hours as needed. 2. Cefuroxime 250 mg twice daily started for UTI. 3. Lactobacillus 1 cap daily. 4. Fluoxetine 20 mg daily. 5. Albuterol HFA 1 puff every 4 hours as needed. 6. Anastrozole 1 mg daily. 7. Digoxin 0.125 mg daily. 8. Cranberry fruit 450 mg daily concentrated. 9. Estrogen vaginal cream 1 application Thursday and . 10. Levothyroxine 50 mcg daily. 11. Lasix 40 mg daily, recently increased. 12. Metoprolol succinate 50 mg in the evening, now recently decreased. 13. Magnesium hydroxide 30 mL in the a.m. as needed. 14. Lisinopril 40 mg daily. 15. Spironolactone 25 mg daily. 16. Senna 2 tabs at bedtime. 17. Coumadin 3 mg daily. 18. Amlodipine 10 mg daily. 19. Acetaminophen 650 mg at bedtime as needed. 20. Acetaminophen suppository 650 mg every 6 hours as needed. 21. Triamcinolone 0.1% cream topically as needed. ALLERGIES: 1. CIPROFLOXACIN. 2. LEVOFLOXACIN. 3. NITROFURANTOIN. FAMILY HISTORY: Hypertension. SOCIAL HISTORY: Lives in [facility]. No alcohol, tobacco, or illicits. REVIEW OF SYSTEMS: Review of systems difficult to obtain from the patient, but does include recent UTI, recent URI symptoms, recent confusion with hallucinations thinking she saw her . No recorded fevers, chills or night sweats. Unknown sick contacts. PHYSICAL EXAMINATION GENERAL: Lying approximately 45 degrees in bed, difficult to understand, trying to communicate with this author. VITAL SIGNS: When seen by this author, 99/54, respiratory rate 21, heart rate 71, 94% on 45% FiO2 with BiPAP. T-max 97.2 in the emergency room. HEENT: Oropharynx is clear. Dry mucous membranes. Sclerae anicteric. NECK: Non-elevated JVD. LUNGS: Largely clear to auscultation throughout. HEART: She has regular rate and rhythm. Difficult to auscultate murmurs over mechanical breath sounds. ABDOMEN: Soft, nontender, and nondistended. EXTREMITIES: Warm and well perfused. She has 1+ bilateral lower extremity pitting edema to approximately 8 inches above ankle. NEUROLOGIC: She is alert, although not oriented. Difficult to communicate with rest of neurological exam. Difficult to appreciate. PSYCH: No apparent anxiety, agitation, or depression. LABORATORY DATA: Pertinent laboratory data reviewed. Troponin I 0.05. CRP 156. BNP 1215. BUN 44, creatinine 1.34. INR 3.7. White blood cell count 13.6 , neutrophils 85%. In the correct clinical setting, chest x-ray findings most consistent with cardiogenic pulmonary edema. EKG: Afib flutter with ventricular paced rhythm, rate 70. ASSESSMENT AND PLAN: This is an 87-year-old female with past medical history of paroxysmal atrial fibrillation, cardiomyopathy with EF 35%. Last hospital stay for atrial fibrillation complicated by systolic heart failure, presenting with increased work of breathing, hypoxic respiratory failure at [facility] requiring BiPAP. 1. Hypoxic respiratory failure in the setting of systolic heart failure. She received Lasix 40 mg IV in the emergency room with improvement in clinical exam. Continue to monitor and admit to ICU. Increased leukocytosis, could be underlying pneumonia. We will reevaluate chest x-ray as indicated. No Lasix had been recently increased. Potentially not enough for needed inpatient hospital stay in order to maintain euvolemia. I discussed with the patient's healthcare proxy. The patient would not want intubation. MOLST completed accordingly. 2. Recent urinary tract infection, on Ceftin. Sensitivities indicate resistance to ceftriaxone at this time and monitor urinalysis at this time. 3. Supratherapeutic INR. Hold Coumadin today. Recheck tomorrow. 4. Increased troponin, suspect in the setting of systolic heart failure. Repeat trend. 5. Atrial fibrillation. Continue digoxin. Change metoprolol from succinate to tartrate with hold parameters. 6. Hypertension. Holding other antihypertensives in the setting of relative hypotension suspect in the setting of acute illness, BiPAP as well as Lasix. 7. Hypothyroidism. Continue Synthroid dose. Recheck TSH. 8. DVT prophylaxis. Heparin subcu. [id number]/[facility] #: [id number] [facility]
[2017-12-28] MEDS: Heparin VIAL(*) 5000 UNITS/ML VIAL (FIVE THOUSAND) SUBCUT SCH ×2 (13:47→21:37)
[2017-12-28] MEDS: Digoxin TAB* 0.125 MG PO SCH (17:09)
[2017-12-28] MEDS: Senna TAB PO SCH (21:30)
[2017-12-29] MEDS: Heparin VIAL(*) 5000 UNITS/ML VIAL (FIVE THOUSAND) SUBCUT SCH ×2 (05:24→13:59)
[2017-12-29] MEDS: Levothyroxine TAB* 50 MCG TAB PO SCH (05:26)
[2017-12-29 05:47] LABS: Hematocrit 41 % (35-47); Hemoglobin 13.1 g/dl (12.0-16.0); Mean Corpuscular HGB Conc 32 g/dl (31-36); Mean Corpuscular Hemoglobin 26 pg (27-31); Mean Corpuscular Volume 81 fL (80-97); Mean Platelet Volume 8 um3 (7.4-10.4); Platelet Count 338 10^3/ul (150-450); Red Cell Distribution Width 21 % (10.5-15)
[2017-12-29 05:51] LABS: INR 3.47 (0.77-1.02)
[2017-12-29 05:58] LABS: EGFR Non-African American 41.9 (>60)
[2017-12-29 06:13] LABS: ABS Basophils 0 10^3/ul (0-0.2); ABS Eosinophils 0.3 10^3/ul (0-0.6); ABS Lymphocytes 0.9 10^3/ul (1.0-4.8); ABS Monocytes 0.8 10^3/ul (0-0.8); ABS Neutrophils 10.9 10^3/ul (1.5-7.7); ABS Nucleated RBC 0 10^3/ul; Eosinophil % 2.5 % (0-6); Lymphocyte % 6.7 % (25-47); Nucleated Red Blood Cells % 0.2
[2017-12-29] MEDS: CMC:Anastrozole (NF) 1 MG TAB PO SCH (08:45)
[2017-12-29] MEDS: Metoprolol Tartrate TAB* 25 MG PO SCH ×2 (08:46→20:45)
[2017-12-29] MEDS: Lactobacillus Acidophilu (GG)* 1 CAP CAP PO SCH (08:46)
[2017-12-29] MEDS: Furosemide IV* 10 MG/ML VIAL (40 MG) IV SLOW PU SCH (08:46)
[2017-12-29] MEDS: FLUoxetine CAP* 20 MG PO SCH (08:46)
[2017-12-29] MEDS: cefTRIAXone(*) 1 GM in NS 0.9% 50 ML* 50 ML IVPB SCH (11:16)
--- NOTE | 2017-12-29 14:23 | PN ---
Subjective Date of Service: 12/29/17 Interval History: +cough but breathing better. Off BiPAP since last year No SOB, CP Objective Active Medications: Acetaminophen (Tylenol Supp*) 650 mg MI Q6H PRN PRN Reason: FEVER/PAIN Albuterol (Ventolin Hfa Inhaler*) 1 puff INH Q4H PRN PRN Reason: SOB/WHEEZING Anastrozole (Arimidex (Nf)) 1 mg PO QAM [facility] Last Admin: 12/29/17 08:45 Dose: 1 mg Digoxin (Lanoxin Tab*) 0.125 mg PO 1700 [facility] Last Admin: 12/28/17 17:09 Dose: 0.125 mg Estrogens Conjugated (Premarin Vag Cream*) 1 applic VAGINAL TUTH [facility] Fluoxetine HCl (Prozac Cap*) 40 mg PO DAILY [facility] Last Admin: 12/29/17 08:46 Dose: 40 mg Furosemide (Lasix Iv*) 40 mg IV SLOW PU DAILY [facility] Last Admin: 12/29/17 08:46 Dose: 40 mg Heparin Sodium (Porcine) (Heparin Vial(*)) 5,000 units SUBCUT Q8HR [facility] Last Admin: 12/29/17 13:59 Dose: 5,000 units Ceftriaxone Sodium 1 gm/ (Sodium Chloride) 50 mls @ 200 mls/hr IVPB Q24H [facility] Stop: 12/30/17 10:59 Last Admin: 12/29/17 11:16 Dose: 200 mls/hr Ceftriaxone Sodium 1,000 mg/ (Sterile Water) 10 mls @ 40 mls/hr IVPB Q24H [facility] Lactobacillus Rhamnosus (Culturelle*) 1 cap PO DAILY [facility] Last Admin: 12/29/17 08:46 Dose: 1 cap Levothyroxine Sodium (Synthroid Tab*) 50 mcg PO 0600 [facility] Last Admin: 12/29/17 05:26 Dose: 50 mcg Magnesium Hydroxide (Milk Of Magnesia Liq*) 30 ml PO QAM PRN PRN Reason: CONSTIPATION Metoprolol Tartrate (Lopressor Tab*) 25 mg PO BID [facility] Last Admin: 12/29/17 08:46 Dose: 25 mg Senna (Senokot Tab*) 2 tab PO BEDTIME [facility] Last Admin: 12/28/17 21:30 Dose: 2 tab Vital Signs - 8 hr 12/29/17 12/29/17 12/29/17 07:00 07:39 07:45 Temperature 98 F Pulse Rate 71 Respiratory 15 17 Rate Blood Pressure 118/60 (mmHg) O2 Sat by Pulse 95 Oximetry 12/29/17 12/29/17 12/29/17 08:00 09:00 09:42 Temperature Pulse Rate 70 70 Respiratory 15 22 Rate Blood Pressure 114/58 120/62 (mmHg) O2 Sat by Pulse 95 95 97 Oximetry 12/29/17 12/29/17 12/29/17 09:47 09:49 10:00 Temperature Pulse Rate 72 70 67 Respiratory 22 21 16 Rate Blood Pressure 74/59 111/57 111/57 (mmHg) O2 Sat by Pulse 96 96 98 Oximetry 12/29/17 12/29/17 12/29/17 10:51 11:00 11:16 Temperature 97.1 F Pulse Rate 67 Respiratory 18 14 Rate Blood Pressure 108/63 (mmHg) O2 Sat by Pulse 97 Oximetry 12/29/17 12/29/17 12/29/17 11:49 12:00 13:00 Temperature Pulse Rate 71 70 Respiratory 17 16 17 Rate Blood Pressure 118/70 114/69 (mmHg) O2 Sat by Pulse 94 95 Oximetry 12/29/17 14:00 Temperature Pulse Rate 70 Respiratory 23 Rate Blood Pressure 92/53 (mmHg) O2 Sat by Pulse 93 Oximetry Oxygen Devices in Use Now: Nasal Cannula - 4L, High Flow Nasal Cannula Appearance: sitting up in bed, NAD Eyes: No Scleral Icterus, PERRLA Ears/Nose/Mouth/Throat: Mucous Membranes Moist Neck: NL Appearance and Movements; NL JVP, Trachea Midline Respiratory: Symmetrical Chest Expansion and Respiratory Effort, - - decreased in bases, rales in bases, much improved since yesterday Cardiovascular: RRR Abdominal: NL Sounds; No Tenderness; No Distention, No Hepatosplenomegaly Lymphatic: No Cervical Adenopathy Skin: - - 1+ LE edema Neurological: Alert and Oriented x 3 Result Diagrams: 12/29/17 05:35 12/29/17 06:34 Additional Lab and Data: Lab Results 12/28/17 12/28/17 12/28/17 Range/Units 04:35 04:35 04:35 WBC (3.5-10.8) 10^3/ul RBC (4.0-5.4) 10^6/ul Hgb (12.0-16.0) g/dl Hct (35-47) % MCV (80-97) fL MCH (27-31) pg MCHC (31-36) g/dl RDW (10.5-15) % Plt Count (150-450) 10^3/ul MPV (7.4-10.4) um3 Neut % (Auto) (38-83) % Lymph % (Auto) (25-47) % [place] % (Auto) (0-7) % Eos % (Auto) (0-6) % Baso % (Auto) (0-2) % Absolute Neuts (auto) (1.5-7.7) 10^3/ul Absolute Lymphs (auto) (1.0-4.8) 10^3/ul Absolute Monos (auto) (0-0.8) 10^3/ul Absolute Eos (auto) (0-0.6) 10^3/ul Absolute Basos (auto) (0-0.2) 10^3/ul Absolute Nucleated RBC 10^3/ul Nucleated RBC % INR (Anticoag Therapy) 3.76 H (0.77-1.02) APTT 48.9 H (26.0-36.3) seconds Sodium 130 L (133-145) mmol/L Potassium TNP Chloride 102 (101-111) mmol/L Carbon Dioxide 19 L (22-32) mmol/L Anion Gap 9 (2-11) mmol/L BUN 44 H (6-24) mg/dL Creatinine 1.34 H (0.51-0.95) mg/dL Est GFR ( Amer) 47.9 (>60) Est GFR (Non-Af Amer) 37.2 (>60) BUN/Creatinine Ratio 32.8 H (8-20) Glucose 97 (70-100) mg/dL Calcium 9.0 (8.6-10.3) mg/dL Total Bilirubin 1.30 H (0.2-1.0) mg/dL AST TNP ALT 19 (7-52) U/L Alkaline Phosphatase 83 (34-104) U/L Troponin I 0.05 H* (<0.04) ng/mL C-Reactive Protein 156.48 H (< 5.00) mg/L B-Natriuretic Peptide 1215 H ( - 100) pg/mL Total Protein 6.4 (6.4-8.9) g/dL Albumin 2.9 L (3.2-5.2) g/dL Globulin 3.5 (2-4) g/dL Albumin/Globulin Ratio 0.8 L (1-3) /10/05 Range/Units 04:35 WBC 13.6 H (3.5-10.8) 10^3/ul RBC 4.96 (4.0-5.4) 10^6/ul Hgb 12.9 (12.0-16.0) g/dl Hct 41 (35-47) % MCV 82 (80-97) fL MCH 26 L (27-31) pg MCHC 32 (31-36) g/dl RDW 20 H (10.5-15) % Plt Count 316 (150-450) 10^3/ul MPV 8 (7.4-10.4) um3 Neut % (Auto) 85.8 H (38-83) % Lymph % (Auto) 5.7 L (25-47) % [place] % (Auto) 6.0 (0-7) % Eos % (Auto) 1.9 (0-6) % Baso % (Auto) 0.6 (0-2) % Absolute Neuts (auto) 11.7 H (1.5-7.7) 10^3/ul Absolute Lymphs (auto) 0.8 L (1.0-4.8) 10^3/ul Absolute Monos (auto) 0.8 (0-0.8) 10^3/ul Absolute Eos (auto) 0.3 (0-0.6) 10^3/ul Absolute Basos (auto) 0.1 (0-0.2) 10^3/ul Absolute Nucleated RBC 0.1 10^3/ul Nucleated RBC % 0.4 INR (Anticoag Therapy) (0.77-1.02) APTT (26.0-36.3) seconds Sodium (133-145) mmol/L Potassium Chloride (101-111) mmol/L Carbon Dioxide (22-32) mmol/L Anion Gap (2-11) mmol/L BUN (6-24) mg/dL Creatinine (0.51-0.95) mg/dL Est GFR ( Amer) (>60) Est GFR (Non-Af Amer) (>60) BUN/Creatinine Ratio (8-20) Glucose (70-100) mg/dL Calcium (8.6-10.3) mg/dL Total Bilirubin (0.2-1.0) mg/dL AST ALT (7-52) U/L Alkaline Phosphatase (34-104) U/L Troponin I (<0.04) ng/mL C-Reactive Protein (< 5.00) mg/L B-Natriuretic Peptide ( - 100) pg/mL Total Protein (6.4-8.9) g/dL Albumin (3.2-5.2) g/dL Globulin (2-4) g/dL Albumin/Globulin Ratio (1-3) Microbiology and Other Data: Microbiology 12/28/17 10:50 Nasal Screen MRSA (PCR)([facility]AN) - Final Nasal Mrsa Not Detected Assess/Plan/Problems-Billing Assessment: 87 yo F h/o systolic CHF, pAF, PPM presented to hospital with hypoxic respiratory failure in need of rescue BiPAP thought in the setting of acute decompensated sCHF exacerbation - Patient Problems (1) Atrial fibrillation Comment: rate controlled. c/w digoxin and metoprolol (2) Heart failure Comment: improved with diuresis c/w IV lasix unclear reason for acute decompensation. PCP was increasing diuretics prior to presentation. Underlying PNA? consider repeat CXR (3) Urinary tract infection Comment: on 2nd gen cephalosporin as outpatient c/w CTX x 3 days (day 2 of 3) (4) HTN (hypertension) Comment: Holding home antihypertensives while aggressive diuresis (5) DVT prophylaxis Comment: Supratherapeutic INR Holding coumadin
[2017-12-29] MEDS: Digoxin TAB* 0.125 MG PO SCH (17:16)
[2017-12-29] MEDS: Conjugated Estrogens VAG CM* 42.5 gm TUBE VAGINAL SCH (18:32)
[2017-12-29] MEDS: Senna TAB PO SCH (21:15)
[2017-12-30] MEDS: Levothyroxine TAB* 50 MCG TAB PO SCH (05:26)
[2017-12-30 06:03] LABS: ABS Basophils 0 10^3/ul (0-0.2); ABS Eosinophils 0.2 10^3/ul (0-0.6); ABS Monocytes 0.7 10^3/ul (0-0.8); ABS Neutrophils 8.3 10^3/ul (1.5-7.7); ABS Nucleated RBC 0.1 10^3/ul; Eosinophil % 2.4 % (0-6); Hematocrit 39 % (35-47); Hemoglobin 12.9 g/dl (12.0-16.0); Lymphocyte % 9.4 % (25-47); Mean Corpuscular HGB Conc 33 g/dl (31-36); Mean Corpuscular Hemoglobin 27 pg (27-31); Mean Corpuscular Volume 82 fL (80-97); Mean Platelet Volume 8 um3 (7.4-10.4); Nucleated Red Blood Cells % 0.5; Platelet Count 302 10^3/ul (150-450); Red Blood Count 4.81 10^6/ul (4.0-5.4); Red Cell Distribution Width 21 % (10.5-15); White Blood Count 10.3 10^3/ul (3.5-10.8)
[2017-12-30 06:09] LABS: INR 2.33 (0.77-1.02)
[2017-12-30 06:17] LABS: EGFR Non-African American 45.8 (>60)
--- NOTE | 2017-12-30 09:47 | PN ---
Subjective Date of Service: 12/30/17 Interval History: Diet consistency advanced yesterday Continues to cough Feels breathing is improved but still confused - wants to know what happens with her BM, AOX2 to self and location Has remained off of BiPAP Minimal PO intake over last 24 hrs recorded in records Net negative 750cc Objective Active Medications: Acetaminophen (Tylenol Supp*) 650 mg MS Q6H PRN PRN Reason: FEVER/PAIN Albuterol (Ventolin Hfa Inhaler*) 1 puff INH Q4H PRN PRN Reason: SOB/WHEEZING Anastrozole (Arimidex (Nf)) 1 mg PO QAM [facility] Last Admin: 12/29/17 08:45 Dose: 1 mg Digoxin (Lanoxin Tab*) 0.125 mg PO 1700 [facility] Last Admin: 12/29/17 17:16 Dose: 0.125 mg Estrogens Conjugated (Premarin Vag Cream*) 1 applic VAGINAL TUTH [facility] Last Admin: 12/29/17 18:32 Dose: Not Given Fluoxetine HCl (Prozac Cap*) 40 mg PO DAILY [facility] Last Admin: 12/29/17 08:46 Dose: 40 mg Furosemide (Lasix Iv*) 40 mg IV SLOW PU DAILY [facility] Last Admin: 12/29/17 08:46 Dose: 40 mg Ceftriaxone Sodium 1 gm/ (Sodium Chloride) 50 mls @ 200 mls/hr IVPB Q24H [facility] Stop: 12/30/17 10:59 Last Admin: 12/29/17 11:16 Dose: 200 mls/hr Ceftriaxone Sodium 1,000 mg/ (Sterile Water) 10 mls @ 40 mls/hr IVPB Q24H [facility] Lactobacillus Rhamnosus (Culturelle*) 1 cap PO DAILY [facility] Last Admin: 12/29/17 08:46 Dose: 1 cap Levothyroxine Sodium (Synthroid Tab*) 50 mcg PO 0600 [facility] Last Admin: 12/30/17 05:26 Dose: 50 mcg Magnesium Hydroxide (Milk Of Magnesia Liq*) 30 ml PO QAM PRN PRN Reason: CONSTIPATION Metoprolol Tartrate (Lopressor Tab*) 25 mg PO BID [facility] Last Admin: 12/29/17 20:45 Dose: Not Given Senna (Senokot Tab*) 2 tab PO BEDTIME [facility] Last Admin: 12/29/17 21:15 Dose: 2 tab Warfarin Sodium (Coumadin Tab(*)) 2.5 mg PO DAILY [facility] PRN Reason: Protocol Vital Signs - 8 hr 12/30/17 12/30/17 12/30/17 03:51 07:33 08:00 Temperature 97.5 F 97.5 F Pulse Rate 72 63 Respiratory 20 22 18 Rate Blood Pressure 121/57 98/69 (mmHg) O2 Sat by Pulse 90 96 Oximetry 12/30/17 08:03 Temperature Pulse Rate Respiratory Rate Blood Pressure 106/70 (mmHg) O2 Sat by Pulse Oximetry Oxygen Devices in Use Now: Nasal Cannula - 2L Appearance: Sitting up in bed, hoarse sounding voice, no distress Eyes: No Scleral Icterus, PERRLA Ears/Nose/Mouth/Throat: Clear Oropharnyx, Mucous Membranes Moist Neck: NL Appearance and Movements; NL JVP, Trachea Midline Respiratory: Symmetrical Chest Expansion and Respiratory Effort, - - rales left base up 1/3, right clear Cardiovascular: RRR, - - 2/6 BRAN, elevated JVD Abdominal: NL Sounds; No Tenderness; No Distention, No Hepatosplenomegaly Lymphatic: No Cervical Adenopathy Extremities: - - trace LE edema Neurological: - - AOx 2 to self and [facility] but not year. Thinks its 2007 and February Result Diagrams: 12/30/17 05:47 12/30/17 05:47 Additional Lab and Data: Lab Results 12/28/17 12/28/17 12/28/17 Range/Units 04:35 04:35 04:35 WBC (3.5-10.8) 10^3/ul RBC (4.0-5.4) 10^6/ul Hgb (12.0-16.0) g/dl Hct (35-47) % MCV (80-97) fL MCH (27-31) pg MCHC (31-36) g/dl RDW (10.5-15) % Plt Count (150-450) 10^3/ul MPV (7.4-10.4) um3 Neut % (Auto) (38-83) % Lymph % (Auto) (25-47) % [place] % (Auto) (0-7) % Eos % (Auto) (0-6) % Baso % (Auto) (0-2) % Absolute Neuts (auto) (1.5-7.7) 10^3/ul Absolute Lymphs (auto) (1.0-4.8) 10^3/ul Absolute Monos (auto) (0-0.8) 10^3/ul Absolute Eos (auto) (0-0.6) 10^3/ul Absolute Basos (auto) (0-0.2) 10^3/ul Absolute Nucleated RBC 10^3/ul Nucleated RBC % INR (Anticoag Therapy) 3.76 H (0.77-1.02) APTT 48.9 H (26.0-36.3) seconds Sodium 130 L (133-145) mmol/L Potassium TNP Chloride 102 (101-111) mmol/L Carbon Dioxide 19 L (22-32) mmol/L Anion Gap 9 (2-11) mmol/L BUN 44 H (6-24) mg/dL Creatinine 1.34 H (0.51-0.95) mg/dL Est GFR ( Amer) 47.9 (>60) Est GFR (Non-Af Amer) 37.2 (>60) BUN/Creatinine Ratio 32.8 H (8-20) Glucose 97 (70-100) mg/dL Calcium 9.0 (8.6-10.3) mg/dL Total Bilirubin 1.30 H (0.2-1.0) mg/dL AST TNP ALT 19 (7-52) U/L Alkaline Phosphatase 83 (34-104) U/L Troponin I 0.05 H* (<0.04) ng/mL C-Reactive Protein 156.48 H (< 5.00) mg/L B-Natriuretic Peptide 1215 H ( - 100) pg/mL Total Protein 6.4 (6.4-8.9) g/dL Albumin 2.9 L (3.2-5.2) g/dL Globulin 3.5 (2-4) g/dL Albumin/Globulin Ratio 0.8 L (1-3) 12/28/17 Range/Units 04:35 WBC 13.6 H (3.5-10.8) 10^3/ul RBC 4.96 (4.0-5.4) 10^6/ul Hgb 12.9 (12.0-16.0) g/dl Hct 41 (35-47) % MCV 82 (80-97) fL MCH 26 L (27-31) pg MCHC 32 (31-36) g/dl RDW 20 H (10.5-15) % Plt Count 316 (150-450) 10^3/ul MPV 8 (7.4-10.4) um3 Neut % (Auto) 85.8 H (38-83) % Lymph % (Auto) 5.7 L (25-47) % [place] % (Auto) 6.0 (0-7) % Eos % (Auto) 1.9 (0-6) % Baso % (Auto) 0.6 (0-2) % Absolute Neuts (auto) 11.7 H (1.5-7.7) 10^3/ul Absolute Lymphs (auto) 0.8 L (1.0-4.8) 10^3/ul Absolute Monos (auto) 0.8 (0-0.8) 10^3/ul Absolute Eos (auto) 0.3 (0-0.6) 10^3/ul Absolute Basos (auto) 0.1 (0-0.2) 10^3/ul Absolute Nucleated RBC 0.1 10^3/ul Nucleated RBC % 0.4 INR (Anticoag Therapy) (0.77-1.02) APTT (26.0-36.3) seconds Sodium (133-145) mmol/L Potassium Chloride (101-111) mmol/L Carbon Dioxide (22-32) mmol/L Anion Gap (2-11) mmol/L BUN (6-24) mg/dL Creatinine (0.51-0.95) mg/dL Est GFR ( Amer) (>60) Est GFR (Non-Af Amer) (>60) BUN/Creatinine Ratio (8-20) Glucose (70-100) mg/dL Calcium (8.6-10.3) mg/dL Total Bilirubin (0.2-1.0) mg/dL AST ALT (7-52) U/L Alkaline Phosphatase (34-104) U/L Troponin I (<0.04) ng/mL C-Reactive Protein (< 5.00) mg/L B-Natriuretic Peptide ( - 100) pg/mL Total Protein (6.4-8.9) g/dL Albumin (3.2-5.2) g/dL Globulin (2-4) g/dL Albumin/Globulin Ratio (1-3) Microbiology and Other Data: Microbiology 12/28/17 10:50 Nasal Screen MRSA (PCR)([facility]) - Final Nasal Mrsa Not Detected Assess/Plan/Problems-Billing Assessment: 87 yo F h/o systolic CHF, pAF, PPM presented to hospital with hypoxic respiratory failure in need of rescue BiPAP thought in the setting of acute decompensated sCHF exacerbation - Patient Problems (1) Atrial fibrillation Comment: rate controlled. c/w digoxin and metoprolol (2) Heart failure Comment: improved with diuresis c/w IV lasix 40 daily. Unclear dry weight unclear reason for acute decompensation. PCP was increasing diuretics prior to presentation. Doubt underlying PNA based on presenting CXR and improvement with diuretics but notable I have kept her on CTX as well for potential UTI prior to presentation (3) Urinary tract infection Comment: on 2nd gen cephalosporin as outpatient c/w CTX x 3 days (day 3 of 3) (4) HTN (hypertension) Comment: Holding home antihypertensives while aggressive diuresis (5) DVT prophylaxis Comment: Restart coumadin 12/30
[2017-12-30] MEDS: CMC:Anastrozole (NF) 1 MG TAB PO SCH (09:51)
[2017-12-30] MEDS: FLUoxetine CAP* 20 MG PO SCH (09:53)
[2017-12-30] MEDS: Lactobacillus Acidophilu (GG)* 1 CAP CAP PO SCH (09:53)
[2017-12-30] MEDS: Furosemide IV* 10 MG/ML VIAL (40 MG) IV SLOW PU SCH (09:53)
[2017-12-30] MEDS: Metoprolol Tartrate TAB* 25 MG PO SCH ×2 (09:53→22:09)
[2017-12-30] MEDS: cefTRIAXone 1000 MG SYRINGE IVPB Q24H IVPB SCH ×2 (11:19)
[2017-12-30] MEDS: Digoxin TAB* 0.125 MG PO SCH (18:02)
[2017-12-30] MEDS: Senna TAB PO SCH (22:09)
[2017-12-30] MEDS ORDERED: Ondansetron INJ* 2 MG/ML VIAL IV PRN (22:10)
[2017-12-31] MEDS: Levothyroxine TAB* 50 MCG TAB PO SCH (05:05)
[2017-12-31 06:15] LABS: ABS Basophils 0.1 10^3/ul (0-0.2); ABS Eosinophils 0.2 10^3/ul (0-0.6); ABS Monocytes 0.9 10^3/ul (0-0.8); ABS Neutrophils 7.5 10^3/ul (1.5-7.7); ABS Nucleated RBC 0 10^3/ul; Eosinophil % 2.2 % (0-6); Hematocrit 39 % (35-47); Hemoglobin 12.9 g/dl (12.0-16.0); Lymphocyte % 9.8 % (25-47); Mean Corpuscular HGB Conc 33 g/dl (31-36); Mean Corpuscular Hemoglobin 27 pg (27-31); Mean Corpuscular Volume 81 fL (80-97); Mean Platelet Volume 8 um3 (7.4-10.4); Nucleated Red Blood Cells % 0.1; Platelet Count 319 10^3/ul (150-450); Red Blood Count 4.83 10^6/ul (4.0-5.4); Red Cell Distribution Width 21 % (10.5-15); White Blood Count 9.7 10^3/ul (3.5-10.8)
[2017-12-31 06:28] LABS: INR 1.99 (0.77-1.02)
[2017-12-31 06:31] LABS: EGFR Non-African American 54.1 (>60)
[2017-12-31] MEDS: FLUoxetine CAP* 20 MG PO SCH (08:40)
[2017-12-31] MEDS: CMC:Anastrozole (NF) 1 MG TAB PO SCH (08:40)
[2017-12-31] MEDS: Lactobacillus Acidophilu (GG)* 1 CAP CAP PO SCH (08:40)
[2017-12-31] MEDS: Metoprolol Tartrate TAB* 25 MG PO SCH ×2 (08:41→22:58)
[2017-12-31] MEDS: Furosemide IV* 10 MG/ML VIAL (40 MG) IV SLOW PU SCH (08:41)
[2017-12-31] MEDS: Conjugated Estrogens VAG CM* 42.5 gm TUBE VAGINAL SCH ×3 (08:41→17:21)
[2017-12-31] MEDS: cefTRIAXone 1000 MG SYRINGE IVPB Q24H IVPB SCH ×2 (11:25)
[2017-12-31] MEDS ORDERED: Warfarin TAB(*) 2.5 MG PO SCH (17:00)
[2017-12-31] MEDS: Digoxin TAB* 0.125 MG PO SCH (18:28)
[2017-12-31] MEDS: Senna TAB PO SCH (22:59)
[2018-01-01] MEDS: Levothyroxine TAB* 50 MCG TAB PO SCH (05:34)
[2018-01-01] MEDS: Furosemide IV* 10 MG/ML VIAL (40 MG) IV SLOW PU SCH (08:07)
[2018-01-01] MEDS: FLUoxetine CAP* 20 MG PO SCH (08:12)
[2018-01-01] MEDS: Metoprolol Tartrate TAB* 25 MG PO SCH (08:12)
[2018-01-01] MEDS: Lactobacillus Acidophilu (GG)* 1 CAP CAP PO SCH (08:12)
[2018-01-01] MEDS: CMC:Anastrozole (NF) 1 MG TAB PO SCH (08:12)
--- NOTE | 2018-01-01 09:52 | DS ---
CC: Dr. Kamara* DISCHARGE SUMMARY: DATE OF ADMISSION: 12/28/17 DATE OF DISCHARGE: 01/01/18 PRIMARY CARE PROVIDER: Dr. Kamara. PRIMARY DIAGNOSIS: Hypoxic respiratory failure in the setting of acute decompensated systolic heart failure. SECONDARY DIAGNOSES: 1. Paroxysmal atrial fibrillation. 2. Hypertension. 3. Ischemic cardiomyopathy. 4. Severe tricuspid regurgitation. 5. Hypothyroidism. 6. Urinary tract infection. 7. Acute kidney injury. MEDICATIONS AT DISCHARGE: 1. Coumadin 2.5 mg daily. 2. Mylanta every 4 hours as needed. 3. Acetaminophen suppository 650 mg every 6 hours as needed. 4. Acetaminophen tabs 650 mg every 6 hours as needed, not to exceed 4000 mg of acetaminophen in 24 hours. 5. Albuterol every 4 hours as needed. 6. Guaifenesin 10 mL every 4 hours as needed for cough. 7. Sodium phosphate enema daily as needed. 8. Magnesium hydroxide 30 mL daily as needed. 9. Bisacodyl suppository 10 mg per rectum as needed. 10. Senna 2 tabs at bedtime. 11. Levothyroxine 50 mcg daily. 12. Culturelle 1 cap at bedtime. 13. Conjugated estrogen cream 1 application twice daily. 14. Artificial tears 1 drop both eyes 3 times a day as needed. 15. Metoprolol succinate 50 mg in the evening. 16. Spironolactone 25 mg daily. 17. Fluoxetine 40 mg daily. 18. Digoxin 0.125 mg daily. 19. Anastrozole 1 mg in the morning. 20. Cranberry fruit extract 450 mg twice daily. 21. Lasix 40 mg daily. Please note the discontinuation of lisinopril and amlodipine on discharge secondary to normotensive blood pressures on the day of discharge. PERTINENT LABORATORY STUDIES: Negative influenza. White blood cell count on presentation 13.6, on discharge 9.7. INR on the day of discharge 1.99. Creatinine on presentation 1.34, on discharge 0.97. Urine is positive for 1+ bacteria. Cultures, negative urine. HISTORY OF PRESENT ILLNESS AND HOSPITAL COURSE: This is an 87-year-old female with a past medical history as outlined in the history of present illness on the day of admission presented to the hospital with acute hypoxic respiratory failure after seen back in Dr. Kamara' office, required rescue BiPAP, placement in the ICU. She was treated with aggressive diuresis. During the course of the hospital stay, was liberated from the BiPAP machine. During the course of the hospital stay, she had negative fluid balance daily including 800, 1200, 800 , 1500 over the 4 consecutive days of hospital stay. Her weights trended down from 71 to 67.5 kg correlated with her improved respiratory status subjectively and objectively on clinical exam. She was titrated back down to 2 L of oxygen, where she remained during the majority of the hospital stay after being liberated from the BiPAP. Arzola catheter was placed on admission for urine output monitoring. It was removed on the day of discharge after which she passed a trial of void and had less than 200 cc in her urine on bladder scan. The patient's oral intake has been poor and I suspect this will be more debilitated than on presentation in the setting of large hospital stay including intensive care unit. Etiology for rapid decline is unclear, although she had recently had upper respiratory tract infection. In addition, had been treated for urinary tract infection with a second-generation cephalosporin that was not tested on the sensitivities that returned. It is possible that the E. coli was resistant contributing to her further decline. She was treated with ceftriaxone for 4 days during the course of her hospital stay should a urinary tract infection had been contributing to her decline. FOLLOWUP INSTRUCTIONS: At followup, please: 1. Evaluate for continued stability of respiratory status on this dose of Lasix , can consider increasing. She was maintained on 40 mg daily, now is on 40 mg oral. 2. Follow INR. Adjust medication as necessary. 3. No other specific labs or vitals that need followup. Reasons to return to the hospital including but not limited to recurrent symptoms including shortness of breath, chest pain, nausea, vomiting, lightheadedness, loss of consciousness, inability to obtain or tolerate medications discussed with family. They acknowledged understanding. [id number]/[facility] #: [id number] LIND[place]
[2018-01-01] MEDS: cefTRIAXone 1000 MG SYRINGE IVPB Q24H IVPB SCH ×2 (11:54)
[2018-01-01 12:00] VITALS: BP 97/57
== END 2018-01-01 14:00 | DRG 291 ==
LOC: ED 03:13 → ICU 08:44 → MEDTELE 12-29 13:41
PROVIDERS: ADMIT Internal Medicine; ATTEND Internal Medicine
PROC: 0T9B70Z Drainage of Bladder with Drainage Device, Via Natural or Artificial Opening (ICD-10-PCS; principal; 2017-12-28)
PROC: 5A09357 Assistance with Respiratory Ventilation, Less than 24 Consecutive Hours, Continuous Positive Airway Pressure (ICD-10-PCS; 2017-12-28)
PROC: 0TPBX0Z Removal of Drainage Device from Bladder, External Approach (ICD-10-PCS; 2018-01-01)
DX: I50.23 Acute on chronic systolic (congestive) heart failure (principal); J96.01 Acute respiratory failure with hypoxia; N17.9 Acute kidney failure, unspecified; N39.0 Urinary tract infection, site not specified; I48.0 Paroxysmal atrial fibrillation; I11.0 Hypertensive heart disease with heart failure; I25.5 Ischemic cardiomyopathy; E03.9 Hypothyroidism, unspecified; I08.1 Rheumatic disorders of both mitral and tricuspid valves; I27.20 Pulmonary hypertension, unspecified; R79.1 Abnormal coagulation profile; R74.8 Abnormal levels of other serum enzymes; M06.9 Rheumatoid arthritis, unspecified; H91.90 Unspecified hearing loss, unspecified ear; F41.9 Anxiety disorder, unspecified; F32.9 Major depressive disorder, single episode, unspecified; Z90.710 Acquired absence of both cervix and uterus; Z79.01 Long term (current) use of anticoagulants; Z95.0 Presence of cardiac pacemaker; Z85.3 Personal history of malignant neoplasm of breast; Z88.1 Allergy status to other antibiotic agents; Z82.49 Family history of ischemic heart disease and other diseases of the circulatory system; Z98.42 Cataract extraction status, left eye; Z98.41 Cataract extraction status, right eye; Z97.4 Presence of external hearing-aid; Z86.73 Personal history of transient ischemic attack (TIA), and cerebral infarction without residual deficits; Z80.3 Family history of malignant neoplasm of breast
CPT/HCPCS: 36415; 71045; 80048; 80053; 81003; 81015; 83880; 84145; 84443; 84484; 85025; 85610; 85730; 86140; 87086; 87502; 87641; 93005; 94660; 94760; 99284; A9270-GY; J0696; J1644; J1940; J2405